=== PATIENT | female | born 1935 | race Caucasian/White ===

== ENCOUNTER → 2016-08-30 | Outpatient (CLI) | payer MEDICARE, MEDICAID ==
[2016-08-30 15:42] LABS: MEAN CORPUSCULAR HEMOGLOBIN 27.8 pg (27.0-33.4); MEAN CORPUSCULAR HGB CONC 33.2 g/dL (32.0-36.0); MEAN CORPUSCULAR VOLUME 84 fl (80-97); RED BLOOD COUNT 3.94 10^6/uL (3.72-5.28); RED CELL DISTRIBUTION WIDTH 13.4 % (11.5-14.0); WHITE BLOOD COUNT 10.3 10^3/uL (4.0-10.5)
[2016-08-30 15:49] LABS: APPEARANCE,URINE SLIGHTLY-CLOUDY; BILIRUBIN,URINE NEGATIVE (NEGATIVE); GLUCOSE, URINE 150 mg/dL (NEGATIVE); KETONES,URINE NEGATIVE (NEGATIVE); LEUKOCYTE ESTERASE,URINE NEGATIVE (NEGATIVE); NITRITE,URINE NEGATIVE (NEGATIVE); PROTEIN,URINE 100 mg/dL (NEGATIVE); URINE SPECIFIC GRAVITY 1.021; UROBILINOGEN,URINE NEGATIVE mg/dL (<2.0)
[2016-08-30 16:05] LABS: ANION GAP 18 (5-19); BLOOD UREA NITROGEN 17 mg/dL (7-20); CALCIUM 10.3 mg/dL (8.4-10.2); CARBON DIOXIDE 23 mmol/L (22-30); CHLORIDE 101 mmol/L (98-107); CREATININE RESULT 0.93 mg/dL (0.52-1.25); GLUCOSE 231 mg/dL (75-110); MAGNESIUM 1.3 mg/dL (1.6-2.3); POTASSIUM 5.3 mmol/L (3.6-5.0); SODIUM 141.7 mmol/L (137-145)
== END ==
LOC: OD 14:27
PROVIDERS: ATTEND Internal Medicine Nephrology
DX: E11.22 Type 2 diabetes mellitus with diabetic chronic kidney disease (principal); N18.3 Chronic kidney disease, stage 3 (moderate); E87.5 Hyperkalemia; R80.9 Proteinuria, unspecified
CPT/HCPCS: 36415; 80048; 81001; 82570; 83735; 84156; 85027

== ENCOUNTER → 2016-11-25 | Outpatient (CLI) | payer MEDICARE, MEDICAID ==
[2016-11-25 14:39] LABS: HEMATOCRIT 34.6 % (36.0-47.0); HEMOGLOBIN 10.8 g/dL (12.0-15.5); HGB HCT DIFFERENCE -2.2; MEAN CORPUSCULAR HEMOGLOBIN 24.8 pg (27.0-33.4); MEAN CORPUSCULAR HGB CONC 31.3 g/dL (32.0-36.0); MEAN CORPUSCULAR VOLUME 79 fl (80-97); RED BLOOD COUNT 4.37 10^6/uL (3.72-5.28); RED CELL DISTRIBUTION WIDTH 20.8 % (11.5-14.0)
[2016-11-25 14:45] LABS: APPEARANCE,URINE SLIGHTLY-CLOUDY; BILIRUBIN,URINE NEGATIVE (NEGATIVE); GLUCOSE, URINE NEGATIVE (NEGATIVE); KETONES,URINE NEGATIVE (NEGATIVE); LEUKOCYTE ESTERASE,URINE TRACE (NEGATIVE); NITRITE,URINE NEGATIVE (NEGATIVE); PROTEIN,URINE 100 mg/dL (NEGATIVE); URINE SPECIFIC GRAVITY 1.029; UROBILINOGEN,URINE NEGATIVE mg/dL (<2.0)
[2016-11-25 15:09] LABS: ANION GAP 15 (5-19); BLOOD UREA NITROGEN 20 mg/dL (7-20); CALCIUM 9.5 mg/dL (8.4-10.2); CARBON DIOXIDE 25 mmol/L (22-30); CHLORIDE 101 mmol/L (98-107); CREATININE RESULT 1.08 mg/dL (0.52-1.25); GLUCOSE 216 mg/dL (75-110); MAGNESIUM 1.5 mg/dL (1.6-2.3); POTASSIUM 5.2 mmol/L (3.6-5.0); SODIUM 141.4 mmol/L (137-145)
[2016-11-25 15:25] LABS: URINE CREATININE 133.5 mg/dL (15-278); URINE PROTEIN 51.4 mg/dL (<12)
== END ==
LOC: OD 13:43
PROVIDERS: ATTEND Internal Medicine Nephrology
DX: E87.5 Hyperkalemia (principal); N18.3 Chronic kidney disease, stage 3 (moderate); E11.9 Type 2 diabetes mellitus without complications; R80.9 Proteinuria, unspecified
CPT/HCPCS: 36415; 80048; 81001; 82570; 83735; 84156; 85027

== ENCOUNTER → 2017-03-21 | Outpatient (CLI) | payer MEDICARE, MEDICAID ==
--- NOTE | 2017-03-21 13:15 | RADIOLOGY REPORT (SQ) ---
EXAM DESCRIPTION: KNEE LEFT 4 VIEWS COMPLETED DATE/TIME: 03/21/2017 12:41 pm REASON FOR STUDY: PAIN IN LEFT KNEE M25.562 PAIN IN LEFT KNEE COMPARISON: None. NUMBER OF VIEWS: Four views. TECHNIQUE: AP, lateral, and both oblique radiographic images acquired of the left knee. LIMITATIONS: None. FINDINGS: MINERALIZATION: Normal. BONES: No acute fracture dislocation. 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 JOINT: There is a small joint effusion. There is mild narrowing of the medial joint compartment. SOFT TISSUES: There are faint meniscal calcifications. OTHER: No other significant finding. IMPRESSION: Mild degenerative joint changes. TECHNICAL DOCUMENTATION: JOB ID: [id number] [employer]- All Rights Reserved
== END ==
LOC: OD 11:59
PROVIDERS: ATTEND Physician Assistant
DX: M25.562 Pain in left knee (principal)

== ENCOUNTER → 2017-08-29 | Outpatient (CLI) | payer MEDICARE, MEDICAID ==
[2017-08-29 10:49] LABS: HEMATOCRIT 37.7 % (36.0-47.0); MEAN CORPUSCULAR HEMOGLOBIN 30.4 pg (27.0-33.4); MEAN CORPUSCULAR HGB CONC 34.4 g/dL (32.0-36.0); MEAN CORPUSCULAR VOLUME 88 fl (80-97); PLATELET COUNT 307 10^3/uL (150-450); RED BLOOD COUNT 4.27 10^6/uL (3.72-5.28); RED CELL DISTRIBUTION WIDTH 13.9 % (11.5-14.0); WHITE BLOOD COUNT 8.8 10^3/uL (4.0-10.5)
[2017-08-29 11:07] LABS: ANION GAP 12 (5-19); BLOOD UREA NITROGEN 24 mg/dL (7-20); CALCIUM 10.2 mg/dL (8.4-10.2); CARBON DIOXIDE 27 mmol/L (22-30); CHLORIDE 103 mmol/L (98-107); GLUCOSE 153 mg/dL (75-110); POTASSIUM 5.4 mmol/L (3.6-5.0); SODIUM 142.1 mmol/L (137-145)
[2017-08-29 12:48] LABS: APPEARANCE,URINE SLIGHTLY-CLOUDY; BILIRUBIN,URINE NEGATIVE (NEGATIVE); COLOR,URINE YELLOW; GLUCOSE, URINE NEGATIVE (NEGATIVE); KETONES,URINE NEGATIVE (NEGATIVE); LEUKOCYTE ESTERASE,URINE MODERATE (NEGATIVE); NITRITE,URINE NEGATIVE (NEGATIVE); PROTEIN,URINE 100 mg/dL (NEGATIVE); URINE SPECIFIC GRAVITY 1.023; UROBILINOGEN,URINE NEGATIVE mg/dL (<2.0)
[2017-08-29 13:03] LABS: UR PRO/CREAT RATIO RESULT 0.6 mg/mg (0.0-0.2); URINE PROTEIN 72.8 mg/dL (<12)
== END ==
LOC: OD 09:53
PROVIDERS: ATTEND Internal Medicine Nephrology
DX: E11.22 Type 2 diabetes mellitus with diabetic chronic kidney disease (principal); N18.3 Chronic kidney disease, stage 3 (moderate); D64.9 Anemia, unspecified; E87.5 Hyperkalemia
CPT/HCPCS: 36415; 80048; 81001; 82570; 83735; 84156; 85027

== ENCOUNTER 2017-09-25 15:10 | Inpatient (IN) | payer MEDICARE, MEDICAID ==
[2017-09-25] MEDS ORDERED: ASPIRIN 81 MG TABLET, CHEWABLE PO ONE (15:59)
[2017-09-25 16:10] LABS: ABSOLUTE EOSINOPHILS # (AUTO) 0.4 10^3/uL (0.0-0.6); ABSOLUTE LYMPHOCYTES (AUTO) 1.6 10^3/uL (0.5-4.7); ABSOLUTE MONOCYTES (AUTO) 0.6 10^3/uL (0.1-1.4); ABSOLUTE NEUT (AUTO) 7.6 10^3/uL (1.7-8.2); BASOPHILS % (AUTO) 0.4 % (0-2); EOSINOPHILS % (AUTO) 3.5 % (0-6); HEMATOCRIT 38.2 % (36.0-47.0); LYMPHOCYTES % (AUTO) 15.3 % (13-45); MEAN CORPUSCULAR HEMOGLOBIN 30.3 pg (27.0-33.4); MEAN CORPUSCULAR HGB CONC 34.1 g/dL (32.0-36.0); MEAN CORPUSCULAR VOLUME 89 fl (80-97); MONOCYTES % (AUTO) 6.4 % (3-13); PLATELET COUNT 321 10^3/uL (150-450); RED BLOOD COUNT 4.29 10^6/uL (3.72-5.28); RED CELL DISTRIBUTION WIDTH 13.8 % (11.5-14.0); SEGMENTED NEUTROPHILS % (AUTO) 74.4 % (42-78); TOTAL CELLS COUNTED % (AUTO) 100 %; WHITE BLOOD COUNT 10.2 10^3/uL (4.0-10.5)
--- NOTE | 2017-09-25 16:19 | RADIOLOGY REPORT (SQ) ---
EXAM DESCRIPTION: CHEST SINGLE VIEW COMPLETED DATE/TIME: 09/25/2017 4:09 pm REASON FOR STUDY: chest pain COMPARISON: April 2014 EXAM PARAMETERS: NUMBER OF VIEWS: One view. TECHNIQUE: Single frontal radiographic view of the chest acquired. RADIATION DOSE: NA LIMITATIONS: None. FINDINGS: LUNGS AND PLEURA: No opacities, masses or pneumothorax. No pleural effusion. MEDIASTINUM AND HILAR STRUCTURES: No masses. Contour normal. HEART AND VASCULAR STRUCTURES: Heart normal in size. Normal vasculature. BONES: No acute findings. HARDWARE: None in the chest. OTHER: No other significant finding. IMPRESSION: NO ACUTE RADIOGRAPHIC FINDING IN THE CHEST. TECHNICAL DOCUMENTATION: JOB ID: [id number] [employer]- All Rights Reserved Reading location - IP/workstation name: [email or web address]
[2017-09-25 16:31] LABS: ALANINE AMINOTRANSFERASE 23 U/L (9-52); ALBUMIN 4.5 g/dL (3.5-5.0); ALKALINE PHOSPHATASE 73 U/L (38-126); ANION GAP 17 (5-19); ASPARTATE AMINO TRANSFERASE 35 U/L (14-36); BILIRUBIN,DIRECT 0.4 mg/dL (0.0-0.4); BILIRUBIN,TOTAL 0.4 mg/dL (0.2-1.3); BLOOD UREA NITROGEN 18 mg/dL (7-20); CARBON DIOXIDE 24 mmol/L (22-30); CHLORIDE 102 mmol/L (98-107); CREATINE KINASE 34 U/L (30-135); GLUCOSE 229 mg/dL (75-110); POTASSIUM 5.1 mmol/L (3.6-5.0); SODIUM 143.3 mmol/L (137-145); TOTAL PROTEIN 7.2 g/dL (6.3-8.2)
--- NOTE | 2017-09-25 16:32 | ER Document Report ---
ED Cardiac - General Chief Complaint: Chest Pain Stated Complaint: POSSIBLE HEART ATTACK Time Seen by Provider: 09/25/17 16:26 Notes: Patient experienced pains in her jaw and throat and across the upper chest starting Friday afternoon and lasted through the night until Friday morning. She says it felt as if knives were sticking into her jaw and throat and chest. It went away Friday and only returned with some jaw pain when she walked some distance 2 days ago. At this time, she is no longer experiencing any pains, just feeling very tired and sleepy. Patient has not had any shortness of breath. She went and saw her primary care provider got Dr. Houston, local staff physical therapy assistant involved, and her EKG shows some subtle ST changes which could be chronic. However, the patient had blood work done around noon today showing an elevated troponin of 0.9. Patient was advised to come to the emergency department for further evaluation. Patient has a history of congestive heart failure many years ago. She has undergone 4 cardiac catheterizations in her lifetime, none of them recent. Also has a history of high cholesterol, hypertension, NIDDM. TRAVEL OUTSIDE OF THE [place] IN LAST 30 DAYS: No - Related Data Allergies/Adverse Reactions: acetaminophen [From Percocet] Allergy (Severe, Verified 08/17/13 14:48) Hallucinations iodine [Iodine] Allergy (Severe, Verified 08/17/13 14:48) Difficulty breathing morphine [Morphine] Allergy (Severe, Verified 08/17/13 14:48) Generalized Itching oxycodone HCl [From Percocet] Allergy (Severe, Verified 08/17/13 14:48) Hallucinations prednisone [Prednisone] Allergy (Severe, Verified 08/17/13 14:48) Hallucinations Sulfa (Sulfonamide Antibiotics) Allergy (Severe, Verified 08/17/13 14:48) itch/hives codeine [Codeine] Allergy (Unknown, Verified 08/17/13 14:48) ? reaction seafood Allergy (Severe, Uncoded 08/17/13 14:48) Difficulty breathing Past Medical History - Social History Smoking Status: Former Smoker - Stopped 22 years ago. Family History: Reviewed & Not Pertinent - Past Medical History Cardiac Medical History: Reports: Hx Coronary Artery Disease - minor vessels closed, Hx Hypercholesterolemia, Hx Hypertension - meds x yrs Pulmonary Medical History: Reports: Hx Bronchitis, Hx COPD, Hx Pneumonia - as child/cellulitis from pneumonia vaccine Neurological Medical History: Reports: Hx Seizures, Other - Multiple TIAs Endocrine Medical History: Reports: Hx Diabetes Mellitus Type 2 Musculoskeltal Medical History: Reports Hx Arthritis Past Surgical History: Reports: Hx Cholecystectomy, Hx Hysterectomy - Immunizations Hx Diphtheria, Pertussis, Tetanus Vaccination: Yes Hx Pneumococcal Vaccination: 06/09/09 Review of Systems - Review of Systems Notes: REVIEW OF SYSTEMS: CONSTITUTIONAL : Denies fever. Feeling tired. EENT: Denies eye, ear, nose or mouth or throat pain or other symptoms. CARDIOVASCULAR: See HPI. RESPIRATORY: Denies cough, chest congestion, or shortness of breath. GASTROINTESTINAL: Denies abdominal pain or nausea, vomiting, or diarrhea. GENITOURINARY: Denies difficulty or painful urinating, urinary frequency, blood in urine. MUSCULOSKELETAL: Denies back or neck pain. Denies joint pain or swelling. No leg swelling. SKIN: Denies rash or skin lesions. NEUROLOGICAL: Denies LOC or altered mental status. Denies headache. Denies sensory loss or motor deficits. ALL OTHER SYSTEMS REVIEWED AND NEGATIVE. Physical Exam - Vital signs Vitals: Temp Pulse BP Pulse Ox 98.4 F 81 139/55 H 95 09/25/17 15:34 09/25/17 15:34 09/25/17 15:34 09/25/17 15:34 Interpretation: Normal - Notes Notes: PHYSICAL EXAMINATION: GENERAL: Well-appearing, in no acute distress. Vital signs are all essentially normal. HEAD: Atraumatic, normocephalic. EYES: Pupils equal round and reactive to light, extraocular movements intact. ENT: oropharynx clear without exudates. Moist mucous membranes. NECK: Normal range of motion, supple. LUNGS: Breath sounds clear and equal bilaterally. HEART: Regular rate and rhythm without murmurs. ABDOMEN: Soft, nontender. No guarding or rebound. No masses. BACK: No tenderness throughout entire back. EXTREMITIES: Normal range of motion without pain. NEUROLOGICAL: Normal speech. Normal sensory, motor, and reflex exams. Awake, alert, and oriented x3. PSYCH: Normal mood, normal affect. SKIN: Warm, dry, no rashes. Course - Re-evaluation Re-evalutation: 09/25/17 17:44 This patient's case has been discussed with the primary care provider, Dr. Shen , as well as his substitute, Dr. O, who is on-call for the weekend, and Dr. Houston, staff physical therapy assistant business economist. As the patient's symptoms have resolved and she is not having any symptoms at all today, and since her troponin level here in this emergency department this afternoon is 0.77, no increase over the previous value earlier today, it is felt the patient could be observed here and make sure she is stable and not have to be transferred out for further evaluation. Alternatively, if the patient does seem to have worsening symptoms or vital signs, her disposition will have to be reconsidered. Patient and daughter are aware of this plan and agreeable with it. - Vital Signs Vital signs: Temp Pulse Resp BP Pulse Ox 98.4 F 81 22 H 167/68 H 93 09/25/17 15:34 09/25/17 15:34 09/25/17 17:00 09/25/17 15:48 09/25/17 17:00 - Laboratory Result Diagrams: 09/25/17 15:55 09/25/17 15:55 Laboratory results interpreted by me: 09/25/17 15:55 Potassium 5.1 H Est GFR ( Amer) 58 L Est GFR (Non-Af Amer) 48 L Glucose 229 H - Diagnostic Test Radiology results interpreted by me: 09/25/17 17:46 Chest x-ray is unremarkable. Normal. - EKG Interpretation by Me EKG shows normal: Sinus rhythm Rate: Normal [place]/QRS: LAHB/LAFB Voltage: Consistant with LVH Heart block present: 1st Degree Critical Care Note - Critical Care Note Total time excluding time spent on procedures (mins): 40 Discharge - Discharge Clinical Impression: Jaw pain, Chest pain, Positive troponin Condition: Stable Disposition: ADMITTED OBSERVATION Admitting Provider: [facility] Admitted: [facility] Referrals: VIC SHEN MD [Primary Care Provider] - Follow up as needed
[2017-09-25 16:42] LABS: CREATINE KINASE MB 1.17 ng/mL (<4.55)
[2017-09-25 16:46] LABS: TROPONIN I 0.77 ng/mL
[2017-09-25] MEDS ORDERED: IPRATROPIUM/ALBUTEROL 0.5-2.5 MG/3 ML AMPUL NEB PRN (17:29)
[2017-09-25] MEDS ORDERED: GLUCAGON,HUMAN RECOMB 1 MG INJ IM PRN (17:34)
[2017-09-25] MEDS ORDERED: DEXTROSE 50%-WATER 25 GM/50 ML DISP.SYRIN IV PRN ×2 (17:34)
[2017-09-25] MEDS ORDERED: DEXTROSE 40% GEL 15 GM TUBE PO PRN ×2 (17:34)
[2017-09-25] MEDS: DOCUSATE SODIUM 100 MG CAPSULE PO SCH (18:52)
[2017-09-25 19:12] LABS: CREATINE KINASE MB 1.29 ng/mL (<4.55); TROPONIN I 0.916 ng/mL
[2017-09-25] MEDS ORDERED: ENOXAPARIN SODIUM INJ 40 MG/0.4 ML DISP.SYRIN SUBCUT ONE (21:00)
[2017-09-25] MEDS: TRAMADOL HCL 50 MG TABLET PO SCH (21:38)
[2017-09-25] MEDS: HYDRALAZINE HCL 50 MG TABLET PO SCH (21:38)
[2017-09-25] MEDS: METOPROLOL TARTRATE 50 MG TABLET PO SCH (21:39)
[2017-09-25] MEDS: GABAPENTIN 100 MG CAPSULE PO SCH (21:39)
[2017-09-25] MEDS: FAMOTIDINE 20 MG TABLET PO SCH (21:40)
[2017-09-25] MEDS: ACETAMINOPHEN 325 MG TABLET PO PRN (21:40)
[2017-09-25] MEDS: RANOLAZINE 500 MG TAB.SR.12H PO SCH (21:41)
[2017-09-25] MEDS: ATORVASTATIN CALCIUM 40 MG TABLET PO SCH (21:43)
[2017-09-25] MEDS ORDERED: ALPRAZOLAM 0.25 MG TABLET PO SCH (22:00)
[2017-09-25] MEDS ORDERED: (PENDING PHARMACY ID) (Hydralazine Hcl [Hydralazine Hcl] 100 MG) PO SCH (22:00)
--- NOTE | 2017-09-25 23:11 | EKG REPORT ---
SEVERITY:- ABNORMAL ECG - SINUS RHYTHM FIRST DEGREE AV BLOCK LEFT ANTERIOR FASCICULAR BLOCK LVH WITH SECONDARY REPOLARIZATION ABNORMALITY : Confirmed by: Geri Houston 25-Sep-2017 23:10:45
[2017-09-25] MEDS: INSULIN LISPRO 100 UNIT/ML 3 ML VIAL SUBCUT PRN (23:44)
[2017-09-25] MEDS ORDERED: MAG HYDROX/AL HYDROX/SIMETH SUSP 30 ML UDCUP ONE (23:57)
[2017-09-26 00:17] LABS: CREATINE KINASE MB 1.05 ng/mL (<4.55)
[2017-09-26 00:22] LABS: TROPONIN I 0.827 ng/mL
[2017-09-26] MEDS: LEVOTHYROXINE SODIUM 0.1 MG TABLET PO SCH (05:32)
[2017-09-26] MEDS: HYDRALAZINE HCL 50 MG TABLET PO SCH ×3 (05:32→21:50)
[2017-09-26] MEDS: LEVOTHYROXINE SODIUM 0.025 MG TABLET PO SCH (05:32)
[2017-09-26 05:55] LABS: HEMATOCRIT 36.1 % (36.0-47.0); HEMOGLOBIN 12.5 g/dL (12.0-15.5); MEAN CORPUSCULAR HEMOGLOBIN 30.3 pg (27.0-33.4); MEAN CORPUSCULAR HGB CONC 34.6 g/dL (32.0-36.0); MEAN CORPUSCULAR VOLUME 88 fl (80-97); PLATELET COUNT 276 10^3/uL (150-450); RED BLOOD COUNT 4.12 10^6/uL (3.72-5.28); RED CELL DISTRIBUTION WIDTH 13.4 % (11.5-14.0); WHITE BLOOD COUNT 7.3 10^3/uL (4.0-10.5)
[2017-09-26 06:15] LABS: ANION GAP 14 (5-19); BLOOD UREA NITROGEN 17 mg/dL (7-20); CALCIUM 9.5 mg/dL (8.4-10.2); CARBON DIOXIDE 26 mmol/L (22-30); CHLORIDE 102 mmol/L (98-107); CREATINE KINASE 37 U/L (30-135); GLUCOSE 191 mg/dL (75-110); POTASSIUM 4.3 mmol/L (3.6-5.0); SODIUM 142.2 mmol/L (137-145)
[2017-09-26 06:23] LABS: CREATINE KINASE MB 1.24 ng/mL (<4.55); TROPONIN I 1.05 ng/mL
[2017-09-26] MEDS: MAG HYDROX/AL HYDROX/SIMETH SUSP 30 ML UDCUP PO PRN (07:33)
[2017-09-26] MEDS: METFORMIN HCL 500 MG TABLET PO SCH ×2 (07:38→16:48)
--- NOTE | 2017-09-26 09:00 | PDOC H&P ---
History of Present Illness Admission Date/PCP: VIC SHEN MD Patient complains of: chest pain History of Present Illness: RAISTEO SIDDIQUI is a 82 year old female This is a 82-year-old female with the history of the type 2 diabetes mellitus history of the hypertension's hyperlipidemia havoc several cardiac cath in the past came to my office today with a complaining of chest pain in the joint pains started on the last Friday and getting better and a EKG was done in the office with so some EKG changes with T-wave inversion in anterolateral lead and some left bundle branch block that was new from the last EKG and a stat cardiac enzyme was orderedNeck cardiology was consult was ordered and the patient cardiac enzyme was elevated in the acute OH range and a cardiology send the patient's to the ER with patients pretty much denied any complaint and according to the ER physician patients do not want to go for tertiary center at this point for any cardiac cath in the as per discussed with the cardiology agreed to put the patient in the hospital Patient's recall memory was last cardiac cath was done in a week but hospital Patient is currently denied any chest pain denied any shortness of the breath with complaining some indigestions and some back problem Past Medical History Cardiac Medical History: Reports: Coronary Artery Disease - minor vessels closed , Hyperlipidema, Hypertension - meds x yrs Pulmonary Medical History: Reports: Bronchitis, Chronic Obstructive Pulmonary Disease (COPD), Pneumonia - as child/cellulitis from pneumonia vaccine Neurological Medical History: Reports: Seizures, Other - Multiple TIAs Endocrine Medical History: Reports: Diabetes Mellitus Type 2 Musculoskeltal Medical History: Reports: Arthritis Hematology: Reports: Anemia Past Surgical History Past Surgical History: Reports: Cholecystectomy, Hysterectomy Social History Smoking Status: Former Smoker - Stopped 22 years ago. Family History Family History: Reviewed & Not Pertinent Parental Family History Reviewed: Yes Children Family History Reviewed: Yes Sibling(s) Family History Reviewed.: Yes Medication/Allergy Home Medications: Alprazolam [Xanax 0.25 mg Tablet] 0.25 mg PO QHS 09/25/17 Clopidogrel Bisulfate [Plavix 75 mg Tablet] 75 mg PO DAILY 09/25/17 Ferrous Sulfate [Feosol 325 mg Tablet] 325 mg PO DAILY 09/25/17 Gabapentin [Neurontin 100 mg Capsule] 100 mg PO Q12 09/25/17 Glimepiride [Amaryl 1 mg Tablet] 1 mg PO BID 09/25/17 Hydralazine HCl 100 mg PO Q8 09/25/17 Levothyroxine Sodium [Synthroid] 125 mcg PO DAILY 09/25/17 Metformin HCl [Glucophage] 1,000 mg PO BIDACBS 09/25/17 Metoprolol Tartrate [Lopressor 50 mg Tablet] 50 mg PO Q12 09/25/17 Ranitidine HCl [Zantac 150 mg Tablet] 150 mg PO BID 09/25/17 Sitagliptin Phosphate [Januvia 50 mg Tablet] 100 mg PO DAILY 09/25/17 Tramadol HCl [Ultram 50 mg Tablet] 50 mg PO Q12 09/25/17 Allergies/Adverse Reactions: iodine [Iodine] Allergy (Severe, Verified 09/25/17 20:46) Difficulty breathing morphine [Morphine] Allergy (Severe, Verified 09/25/17 20:46) Generalized Itching oxycodone HCl [From Percocet] Allergy (Severe, Verified 09/25/17 20:46) Hallucinations prednisone [Prednisone] Allergy (Severe, Verified 09/25/17 20:46) Hallucinations Sulfa (Sulfonamide Antibiotics) Allergy (Severe, Verified 09/25/17 20:46) itch/hives codeine [Codeine] Allergy (Unknown, Verified 09/25/17 20:46) ? reaction Qiavsus-Dwy-Ogg Reductase Inhibitor Adverse Reaction (Verified 09/26/17 04:43) seafood Allergy (Severe, Uncoded 09/25/17 20:46) Difficulty breathing Review of Systems Constitutional: ABSENT: chills, fever(s), headache(s), weight gain, weight loss Eyes: ABSENT: visual disturbances Ears: ABSENT: hearing changes Cardiovascular: PRESENT: chest pain. ABSENT: dyspnea on exertion, edema, orthropnea, palpitations Respiratory: ABSENT: cough, hemoptysis Gastrointestinal: ABSENT: abdominal pain, constipation, diarrhea, hematemesis, hematochezia, nausea, vomiting Genitourinary: ABSENT: dysuria, hematuria Musculoskeletal: ABSENT: joint swelling Integumentary: ABSENT: rash, wounds Neurological: ABSENT: abnormal gait, abnormal speech, confusion, dizziness, focal weakness, syncope Psychiatric: ABSENT: anxiety, depression, homidical ideation, suicidal ideation Endocrine: ABSENT: cold intolerance, heat intolerance, menstrual abnormalities, polydipsia, polyuria Hematologic/Lymphatic: ABSENT: easy bleeding, easy bruising, lymphadenopathy Physical Exam Vital Signs: Temp Pulse Resp BP Pulse Ox 98.4 F 81 22 H 167/68 H 93 09/25/17 15:34 09/25/17 15:34 09/25/17 17:00 09/25/17 15:48 09/25/17 17:00 Intake & Output 09/24/17 09/25/17 09/26/17 06:59 06:59 06:59 Weight 95.254 kg General appearance: PRESENT: no acute distress, well-developed, well-nourished Head exam: PRESENT: atraumatic, normocephalic Eye exam: PRESENT: conjunctiva pink, EOMI, PERRLA. ABSENT: scleral icterus Ear exam: PRESENT: normal external ear exam Mouth exam: PRESENT: moist, tongue midline Neck exam: PRESENT: full ROM. ABSENT: carotid bruit, JVD, lymphadenopathy, thyromegaly Respiratory exam: PRESENT: clear to auscultation elena Cardiovascular exam: PRESENT: RRR. ABSENT: diastolic murmur, rubs, systolic murmur Pulses: PRESENT: normal dorsalis pedis pul, +2 pedal pulses bilateral Vascular exam: PRESENT: normal capillary refill GI/Abdominal exam: PRESENT: normal bowel sounds, soft. ABSENT: distended, guarding, mass, organolmegaly, rebound, tenderness Rectal exam: PRESENT: deferred Musculoskeletal exam: PRESENT: ambulatory Neurological exam: PRESENT: alert, awake, oriented to person, oriented to place , oriented to time, oriented to situation, CN II-XII grossly intact. ABSENT: motor sensory deficit Psychiatric exam: PRESENT: appropriate affect, normal mood. ABSENT: homicidal ideation, suicidal ideation Skin exam: PRESENT: dry, intact, warm. ABSENT: cyanosis, rash Results Laboratory Results: 09/25/17 15:55 09/25/17 15:55 09/25/17 09/25/17 15:55 15:55 WBC 10.2 RBC 4.29 Hgb 13.0 Hct 38.2 MCV 89 MCH 30.3 MCHC 34.1 RDW 13.8 Plt Count 321 Seg Neutrophils % 74.4 Lymphocytes % 15.3 Monocytes % 6.4 Eosinophils % 3.5 Basophils % 0.4 Absolute Neutrophils 7.6 Absolute Lymphocytes 1.6 Absolute Monocytes 0.6 Absolute Eosinophils 0.4 Absolute Basophils 0.0 Sodium 143.3 Potassium 5.1 H Chloride 102 Carbon Dioxide 24 Anion Gap 17 BUN 18 Creatinine 1.09 Est GFR ( Amer) 58 L Est GFR (Non-Af Amer) 48 L Glucose 229 H Calcium 10.0 Total Bilirubin 0.4 AST 35 ALT 23 Alkaline Phosphatase 73 Total Protein 7.2 Albumin 4.5 09/25/17 09/25/17 15:55 15:55 Creatine Kinase 34 CK-MB (CK-2) 1.17 Troponin I 0.770 Impressions: Chest X-Ray 09/25/17 15:59 IMPRESSION: NO ACUTE RADIOGRAPHIC FINDING IN THE CHEST. Assessment & Plan - Diagnosis (1) Chest pain Qualifiers: Chest pain type: unspecified Qualified Code(s): R07.9 - Chest pain, unspecified Is this a current diagnosis for this admission?: Yes Plan: Most likely a non-ST OH as per discussed with the patient and the daughter do not want to go for the cardiac cath at this point will admit the patient and as per discussed with the cardiology maximize the treatment and reevaluate (2) Non-ST elevated myocardial infarction Is this a current diagnosis for this admission?: Yes Plan: Admit the patient imcu Discussed with the patient and daughterAnd patients do not want to go for any cardiaccath and follow medical mx (3) CAD (coronary artery disease) Qualifiers: Coronary Disease-Associated Artery/Lesion type: unspecified vessel or lesion type Is this a current diagnosis for this admission?: Yes Plan: Continues follow with the cardiology (4) Type 2 diabetes mellitus Qualifiers: Diabetes mellitus skilled nursing insulin use: unspecified skilled nursing insulin use status Is this a current diagnosis for this admission?: Yes Plan: Continues a sliding scale and current medication (5) Hypertension Qualifiers: Hypertension type: essential hypertension Qualified Code(s): I10 - Essential (primary) hypertension Is this a current diagnosis for this admission?: Yes Plan: Continues to restart on the p.o. medications (6) Hyperlipemia Qualifiers: Hyperlipidemia type: other hyperlipidemia Qualified Code(s): E78.4 - Other hyperlipidemia Is this a current diagnosis for this admission?: Yes Plan: Continues to statin (7) Depression Qualifiers: Depression Type: major depressive disorder Is this a current diagnosis for this admission?: Yes - Time Time Spent: 30 to 50 Minutes Medications reviewed and adjusted accordingly: Yes Anticipated discharge: Home Within: Other - Inpatient Certification Medical Necessity: Need Close Monitoring Due to Risk of Patient Decompensation Post Hospital Care: D/C Painter And Decorator Documentation - Plan Summary Plan Summary: Continues to maximum treatment while patient do not want to go for the cardiac cath follow with the cardiology and continues to monitor the patient discussed with the patient and daughter about the patient's current conditions
--- NOTE | 2017-09-26 09:02 | PDOC PROGRESS REPORT ---
Subjective Progress Note for:: 09/26/17 Subjective:: Patient is currently apparently doing fair denied any chest pain overnight but still complaining some indigestions Denied any shortness of the breath Since cardiac enzyme is still elevated Reason For Visit: NON ST LA Physical Exam Vital Signs: Temp Pulse Resp BP Pulse Ox 97.9 F 72 18 148/60 H 97 09/26/17 07:21 09/26/17 08:00 09/26/17 08:00 09/26/17 07:21 09/26/17 08:00 Intake & Output 09/25/17 09/26/17 09/27/17 06:59 06:59 06:59 Intake Total 200 Output Total 800 Balance -600 Weight 95.3 kg General appearance: PRESENT: no acute distress, well-developed, well-nourished Head exam: PRESENT: atraumatic, normocephalic Eye exam: PRESENT: conjunctiva pink, EOMI, PERRLA. ABSENT: scleral icterus Ear exam: PRESENT: normal external ear exam Mouth exam: PRESENT: moist, tongue midline Neck exam: PRESENT: full ROM. ABSENT: carotid bruit, JVD, lymphadenopathy, thyromegaly Respiratory exam: PRESENT: clear to auscultation elena Cardiovascular exam: PRESENT: RRR. ABSENT: diastolic murmur, rubs, systolic murmur Pulses: PRESENT: normal dorsalis pedis pul, +2 pedal pulses bilateral Vascular exam: PRESENT: normal capillary refill GI/Abdominal exam: PRESENT: normal bowel sounds, soft. ABSENT: distended, guarding, mass, organolmegaly, rebound, tenderness Rectal exam: PRESENT: deferred Extremities exam: ABSENT: full ROM, left AKA, right AKA, left BKA, right BKA, calf tenderness, joint swelling, pedal edema, tenderness, other Musculoskeletal exam: PRESENT: ambulatory Neurological exam: PRESENT: alert, awake, oriented to person, oriented to place , oriented to time, oriented to situation, CN II-XII grossly intact. ABSENT: motor sensory deficit Psychiatric exam: PRESENT: appropriate affect, normal mood. ABSENT: homicidal ideation, suicidal ideation Skin exam: PRESENT: dry, intact, warm. ABSENT: cyanosis, rash Results Laboratory Results: 09/26/17 05:44 09/26/17 05:44 09/26/17 09/26/17 05:44 05:44 WBC 7.3 RBC 4.12 Hgb 12.5 Hct 36.1 MCV 88 MCH 30.3 MCHC 34.6 RDW 13.4 Plt Count 276 Sodium 142.2 Potassium 4.3 Chloride 102 Carbon Dioxide 26 Anion Gap 14 BUN 17 Creatinine 0.99 Est GFR ( Amer) > 60 Est GFR (Non-Af Amer) 54 L Glucose 191 H Calcium 9.5 Magnesium 1.5 L 09/25/17 09/25/17 09/25/17 18:26 23:49 23:49 Creatine Kinase 36 CK-MB (CK-2) 1.29 1.05 Troponin I 0.916 0.827 NT-Pro-B Natriuret Pep 09/26/17 09/26/17 05:44 05:44 Creatine Kinase 37 CK-MB (CK-2) 1.24 Troponin I 1.050 NT-Pro-B Natriuret Pep 6300 H Impressions: Chest X-Ray 09/25/17 15:59 IMPRESSION: NO ACUTE RADIOGRAPHIC FINDING IN THE CHEST. Assessment & Plan - Diagnosis (1) Chest pain Qualifiers: Chest pain type: unspecified Qualified Code(s): R07.9 - Chest pain, unspecified Is this a current diagnosis for this admission?: Yes Plan: Most likely a non-ST LA as per discussed with the patient and the daughter do not want to go for the cardiac cath at this point will admit the patient and as per discussed with the cardiology maximize the treatment and reevaluate (2) Non-ST elevated myocardial infarction Is this a current diagnosis for this admission?: Yes Plan: Discussed with the patient again about the possible cardiac interventions and the patient's will talk to the learning coordinator Dr. Houston today discussed with Dr. Houston ordered a stat echo (3) CAD (coronary artery disease) Qualifiers: Coronary Disease-Associated Artery/Lesion type: unspecified vessel or lesion type Is this a current diagnosis for this admission?: Yes Plan: Continues follow with the cardiology (4) Type 2 diabetes mellitus Qualifiers: Diabetes mellitus care home insulin use: unspecified computer terminal operator insulin use status Is this a current diagnosis for this admission?: Yes Plan: Continues a sliding scale and current medication (5) Hypertension Qualifiers: Hypertension type: essential hypertension Qualified Code(s): I10 - Essential (primary) hypertension Is this a current diagnosis for this admission?: Yes Plan: Continues to restart on the p.o. medications (6) Hyperlipemia Qualifiers: Hyperlipidemia type: other hyperlipidemia Qualified Code(s): E78.4 - Other hyperlipidemia Is this a current diagnosis for this admission?: Yes Plan: Continues to statin (7) Depression Qualifiers: Depression Type: major depressive disorder Is this a current diagnosis for this admission?: Yes - Time Time Spent with patient: 15-24 minutes Medications reviewed and adjusted accordingly: Yes Anticipated discharge: Home Within: Other - Inpatient Certification Medical Necessity: Need Close Monitoring Due to Risk of Patient Decompensation Post Hospital Care: D/C Corporate Development Associate Documentation - Plan Summary Plan Summary: Patient is already on aspirin Plavix and beta-zulma discussed with the Dr. Houston about the Lovenox therapy and he does not think patients need at this point will wait for the echo report
[2017-09-26] MEDS: RANOLAZINE 500 MG TAB.SR.12H PO SCH ×3 (09:17→21:53)
[2017-09-26] MEDS: GABAPENTIN 100 MG CAPSULE PO SCH ×2 (09:17→21:51)
[2017-09-26] MEDS: METOPROLOL TARTRATE 50 MG TABLET PO SCH (09:17)
[2017-09-26] MEDS: FERROUS SULFATE 325 MG TABLET PO SCH (09:17)
[2017-09-26] MEDS: CLOPIDOGREL BISULFATE 75 MG TABLET PO SCH (09:18)
[2017-09-26] MEDS: TRAMADOL HCL 50 MG TABLET PO SCH ×2 (09:18→21:51)
[2017-09-26] MEDS: SITAGLIPTIN PHOSPHATE 50 MG TABLET PO SCH (09:19)
[2017-09-26] MEDS: GLIMEPIRIDE 1 MG TABLET PO SCH ×2 (09:19→17:15)
[2017-09-26] MEDS: FAMOTIDINE 20 MG TABLET PO SCH ×2 (09:19→21:52)
[2017-09-26] MEDS: DOCUSATE SODIUM 100 MG CAPSULE PO SCH ×2 (09:20→17:15)
[2017-09-26] MEDS: ENOXAPARIN SODIUM INJ 40 MG/0.4 ML DISP.SYRIN SUBCUT SCH (09:20)
[2017-09-26] MEDS ORDERED: (PENDING PHARMACY ID) (Ranitidine Hcl [Zantac 150 Mg Tablet] 150 MG) PO SCH (10:00)
[2017-09-26] MEDS ORDERED: (PENDING PHARMACY ID) (Levothyroxine Sodium [Synthroid] 125 MCG) PO SCH (10:00)
--- NOTE | 2017-09-26 10:25 | EKG REPORT ---
SEVERITY:- ABNORMAL ECG - SINUS RHYTHM FIRST DEGREE AV BLOCK LEFT ANTERIOR FASCICULAR BLOCK ABNORMAL T, CONSIDER ISCHEMIA, LATERAL LEADS : Confirmed by: Geri Houston 26-Sep-2017 10:24:42
[2017-09-26] MEDS: METOPROLOL SUCCINATE 50 MG TAB.SR.24H PO SCH ×2 (10:40→21:51)
[2017-09-26] MEDS ORDERED: PANTOPRAZOLE SODIUM 40 MG VIAL IV ONE (11:57)
[2017-09-26 12:50] LABS: CREATINE KINASE MB 0.96 ng/mL (<4.55); TROPONIN I 0.622 ng/mL
[2017-09-26] MEDS: INSULIN LISPRO 100 UNIT/ML 3 ML VIAL SUBCUT PRN (12:56)
[2017-09-26] MEDS: ALPRAZOLAM 0.25 MG TABLET PO PRN ×2 (14:47→23:56)
[2017-09-26 18:27] LABS: CREATINE KINASE MB 1.04 ng/mL (<4.55)
[2017-09-26 18:31] LABS: TROPONIN I 0.863 ng/mL
--- NOTE | 2017-09-26 18:57 | XCELERA REPORT ---
[address] [address] Transthoracic Echocardiogram Report Name: ARISTEO SIDDIQUI Age: 82 yrs Gender: Female : 1935 Patient Status: Inpatient Patient Location: [address] [place] [address] Study Date: 09/26/2017 01:29 PM Height: 64 in Weight: 210 lb BSA: 2.0 m2 Procedure: A complete two-dimensional transthoracic echocardiogram was performed (2D, M-mode, spectral and color flow Doppler). The study was technically difficult with many images being suboptimal in quality. Reason For Study: EVAL LVEF, NSTEMI Ordering Physician: GERI JOHNSON Performed By: Evelin Richard Interpretation Summary LV EF is 50% Left ventricular systolic function is borderline reduced. There is mild to moderate concentric left ventricular hypertrophy. The left ventricle is grossly normal size. Doppler measurements suggest pseudonormalized left ventricular relaxation, which is associated with grade II/IV or mild to moderate diastolic dysfunction There is anteroseptal wall hypokinesis The right ventricular systolic function is normal. The left atrial size is normal. The right atrium is normal. There is a trace to mild amount of mitral regurgitation There is no mitral valve stenosis. No aortic regurgitation is present. There is no aortic valve stenosis There is a mild amount of tricuspid regurgitation There is mild to moderate pulmonary hypertension by echo Right ventricular systolic pressure is estimated to be elevated at 40- 50mmHg. The aortic root is not well visualized but is probably normal size. The inferior vena cava was not well visualized There is no pericardial effusion. MMode/2D Measurements & Calculations RVDd: 2.7 cm LVIDd: 5.2 cm FS: 28.1 % Ao root diam: IVSd: 1.3 cm LVIDs: 3.8 cm EDV(Teich): 2.7 cm LVPWd: 1.3 cm 132.1 ml Ao root area: ESV(Teich): 60.8 ml 5.7 cm2 EF(Teich): 54.0 % LA dimension: 3.3 cm LVLd ap4: 8.1 cm SV(MOD-sp4): EDV(MOD-sp4): 26.0 ml 96.0 ml LVLs ap4: 6.9 cm ESV(MOD-sp4): 70.0 ml EF(MOD-sp4): 27.1 % Doppler Measurements & Calculations MV E max sveta: MV P1/2t max sveta: Ao V2 max: LV V1 max P.6 cm/sec 71.6 cm/sec 155.9 cm/sec 7.7 mmHg MV A max sveta: MV P1/2t: 41.8 msec Ao max PG: LV V1 max: 108.6 cm/sec MVA(P1/2t): 5.3 cm2 9.7 mmHg 138.5 cm/sec MV E/A: 0.67 MV dec slope: 501.2 cm/sec2 MV dec time: 0.15 sec PA V2 max: TR max sveta: 117.0 cm/sec 309.5 cm/sec PA max P.5 mmHgTR max P.3 mmHg Left Ventricle The left ventricle is grossly normal size. There is mild to moderate concentric left ventricular hypertrophy. Left ventricular systolic function is borderline reduced. LV EF is 50%. Doppler measurements suggest pseudonormalized left ventricular relaxation, which is associated with grade II/IV or mild to moderate diastolic dysfunction. There is anteroseptal wall hypokinesis. Right Ventricle The right ventricle is grossly normal size. The right ventricular systolic function is normal. Atria The right atrium is normal. The left atrial size is normal. Interarterial septum not well visualized and not well dopplered. Cannot comment on ASD/PFO presence. Mitral Valve The mitral valve is grossly normal. There is no mitral valve stenosis. There is a trace to mild amount of mitral regurgitation. Aortic Valve The aortic valve is moderately calcified. There is no aortic valve stenosis. No aortic regurgitation is present. Tricuspid Valve The tricuspid valve is not well visualized, but is grossly normal. There is no tricuspid stenosis. There is a mild amount of tricuspid regurgitation. There is mild to moderate pulmonary hypertension by echo. Right ventricular systolic pressure is estimated to be elevated at 40-50mmHg. Pulmonic Valve The pulmonic valve is not well visualized. Great Vessels The aortic root is not well visualized but is probably normal size. The inferior vena cava was not well visualized. Effusions There is no pericardial effusion. : GERI JOHNSON > Geri Johnson
--- NOTE | 2017-09-26 19:49 | PDOC PROGRESS REPORT ---
Subjective Progress Note for:: 09/26/17 Subjective:: Patient was admitted through the emergency room after being sent there from my office. Patient was seen there in cardiology consultation for severe jaw pain and neck pain on Friday and Friday for lasting for several hours each time. Patient was seen earlier today by Dr. Ocampo in his office. EKG shows no changes suggesting left bundle branch block pattern. Few hours later patient came to my office when EKG showed left bundle branch block pattern without any changes being noted from EKG performed at Dr. Ocampo's office. However by this time patient's troponin I came back suggestive and patient was sent to the ER for admission and further management. Patient was offered transfer to tertiary care for heart catheterization but she prefers to stay here with medical management. Patient was actually chest pain-free and quite comfortable and was able to walk short distances without any chest pain.. Patient complained of some back pain and right shoulder discomfort pain. This she claims is related to gas and was subsequently relieved by Maalox intake. Patient's troponin I however came back suggestive and slightly above her initial admission troponin I. Reason For Visit: NON ST IA Physical Exam Vital Signs: Temp Pulse Resp BP Pulse Ox 98.8 F 81 18 97/70 L 95 09/26/17 15:47 09/26/17 15:47 09/26/17 15:47 09/26/17 15:47 09/26/17 15:47 Intake & Output 09/25/17 09/26/17 09/27/17 06:59 06:59 06:59 Intake Total 200 720 Output Total 800 900 Balance -600 -180 Weight 95.3 kg Exam: GENERAL: well-nourished and in no acute distress. Alert and oriented x3 HEAD: Atraumatic, normocephalic. EYES: Pupils equal round and reactive to light, extraocular movements intact, sclera anicteric, conjunctiva are normal. ENT: TMs normal, nares patent, oropharynx clear without exudates. Moist mucous membranes. No oral ulcerations or bleeding gums noted NECK: supple without lymphadenopathy. Trachea is central. No cervical or axillary lymphadenopathy noted. Carotids are 2+, JVD WNL LUNGS: Respiration seems nonlabored, no significant accessory muscle action noted. Breath sounds clear to auscultation bilaterally and equal noted. No wheezes rales or rhonchi noted. No significant dullness noted on percussion. CHEST: Palpation of the chest wall shows no significant chest wall tenderness. 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 ABDOMEN: Soft, no significant tenderness appreciated, normoactive bowel sounds. No guarding, no rebound. No rigidity noted . No masses appreciated. EXTREMITIES: Pedal pulses are 1-2+, no calf tenderness noted. No clubbing or cyanosis. Trace pedal edema noted NEUROLOGICAL: Focused neurological exam showed no significant neurologic deficit. Normal speech, no focal weakness appreciated. PSYCH: Normal mood, normal affect. Judgment and insight within normal limits. SKIN: No significant ecchymosis, skin is noted to be warm. MUSCULOSKELETAL EXAM: No significant acute joint swelling noted. Results Laboratory Results: 09/26/17 05:44 09/26/17 05:44 09/26/17 09/26/17 05:44 05:44 WBC 7.3 RBC 4.12 Hgb 12.5 Hct 36.1 MCV 88 MCH 30.3 MCHC 34.6 RDW 13.4 Plt Count 276 Sodium 142.2 Potassium 4.3 Chloride 102 Carbon Dioxide 26 Anion Gap 14 BUN 17 Creatinine 0.99 Est GFR ( Amer) > 60 Est GFR (Non-Af Amer) 54 L Glucose 191 H Calcium 9.5 Magnesium 1.5 L 09/25/17 09/25/17 09/25/17 18:26 23:49 23:49 Creatine Kinase 36 CK-MB (CK-2) 1.29 1.05 Troponin I 0.916 0.827 NT-Pro-B Natriuret Pep 09/26/17 09/26/17 09/26/17 05:44 05:44 12:03 Creatine Kinase 37 35 CK-MB (CK-2) 1.24 Troponin I 1.050 NT-Pro-B Natriuret Pep 6300 H 09/26/17 09/26/17 09/26/17 12:03 17:45 17:45 Creatine Kinase 41 CK-MB (CK-2) 0.96 1.04 Troponin I 0.622 0.863 NT-Pro-B Natriuret Pep EKG Comments: EKG shows sinus rhythm with left bundle branch block pattern and secondary ST-T wave changes. Impressions: Chest X-Ray 09/25/17 15:59 IMPRESSION: NO ACUTE RADIOGRAPHIC FINDING IN THE CHEST. Assessment & Plan - Diagnosis (1) Non-ST elevated myocardial infarction Is this a current diagnosis for this admission?: Yes (2) CAD (coronary artery disease) Qualifiers: Coronary Disease-Associated Artery/Lesion type: [place] artery [place] vs. transplanted heart: [place] heart Associated angina: angina presence unspecified Qualified Code(s): I25.10 - Atherosclerotic heart disease of [place] coronary artery without angina pectoris Is this a current diagnosis for this admission?: Yes (3) Hyperlipemia Qualifiers: Hyperlipidemia type: other hyperlipidemia Qualified Code(s): E78.4 - Other hyperlipidemia Is this a current diagnosis for this admission?: Yes (4) Hypertension Qualifiers: Hypertension type: essential hypertension Qualified Code(s): I10 - Essential (primary) hypertension Is this a current diagnosis for this admission?: Yes (5) Type 2 diabetes mellitus Qualifiers: Diabetes mellitus chcf insulin use: unspecified chcf insulin use status Diabetes mellitus complication status: with unspecified complications Qualified Code(s): E11.8 - Type 2 diabetes mellitus with unspecified complications Is this a current diagnosis for this admission?: Yes (6) Depression Qualifiers: Depression Type: unspecified Qualified Code(s): F32.9 - Major depressive disorder, single episode, unspecified Is this a current diagnosis for this admission?: Yes - Notes Notes: Non-ST segment elevation myocardial infarction: Patient ruled in by this by virtue of EKG changes and also positive enzyme. Patient to be treated with Lovenox aspirin, Plavix, statins, Ranexa, beta blockers, MICHAEL inhibitor/ARB. For further risk stratification a 2D echocardiogram will be obtained. Patient to report any recurrence of chest pain. Once patient stabilized, will consider a stress testing. However if patient has recurrent chest pain or if troponin I keeps on rising then will send patient to tertiary care for heart catheterization. Right now patient prefers medical management. Coronary artery disease: Please see management above. Patient does describe history of cardiac catheterization several years ago at [facility] during which she was noted to have some blockages not needing stents. Hyperlipidemia: Currently stable. Have placed patient on Lipitor 40 mg p.o. nightly. Hypertension: Blood pressure goal is 140/90 or less. Avoid any hypotension or severe hypertension. Diabetes: Recommend good control of blood sugar. However should avoid any hypoglycemia and hyperglycemia. Patient being expertly managed by primary care M.D/hospitalist Dysthymia: Patient has history of anxiety depression. Recommend anxiolytics. - Time Time with patient: Greater than 35 minutes - CODE STATUS was discussed, patient remains full code. Surrogate decision-maker patient's daughter. Multiple medical problems were addressed. More than 50% of the time spent coordinating care, discussing management plans with involved caregivers. Management plans discussed with involved personnels. Medical decision making was of moderate to high complexity, patient's has multiple comorbidities. Medications reviewed and adjusted accordingly: Yes
[2017-09-26] MEDS: ATORVASTATIN CALCIUM 40 MG TABLET PO SCH (21:56)
[2017-09-27 00:33] LABS: TROPONIN I 0.907 ng/mL
[2017-09-27 05:36] LABS: ABSOLUTE EOSINOPHILS # (AUTO) 0.3 10^3/uL (0.0-0.6); ABSOLUTE LYMPHOCYTES (AUTO) 1.5 10^3/uL (0.5-4.7); ABSOLUTE MONOCYTES (AUTO) 0.8 10^3/uL (0.1-1.4); BASOPHILS % (AUTO) 0.4 % (0-2); HEMATOCRIT 34.5 % (36.0-47.0); HEMOGLOBIN 11.9 g/dL (12.0-15.5); LYMPHOCYTES % (AUTO) 17.4 % (13-45); MEAN CORPUSCULAR HEMOGLOBIN 30.2 pg (27.0-33.4); MEAN CORPUSCULAR HGB CONC 34.3 g/dL (32.0-36.0); MEAN CORPUSCULAR VOLUME 88 fl (80-97); PLATELET COUNT 243 10^3/uL (150-450); RED BLOOD COUNT 3.92 10^6/uL (3.72-5.28); RED CELL DISTRIBUTION WIDTH 13.7 % (11.5-14.0); SEGMENTED NEUTROPHILS % (AUTO) 70.2 % (42-78); TOTAL CELLS COUNTED % (AUTO) 100 %; WHITE BLOOD COUNT 8.6 10^3/uL (4.0-10.5)
[2017-09-27 06:04] LABS: ANION GAP 15 (5-19); BLOOD UREA NITROGEN 18 mg/dL (7-20); CALCIUM 9.9 mg/dL (8.4-10.2); CARBON DIOXIDE 25 mmol/L (22-30); CHLORIDE 100 mmol/L (98-107); GLUCOSE 170 mg/dL (75-110); POTASSIUM 4.9 mmol/L (3.6-5.0); SODIUM 140.4 mmol/L (137-145)
[2017-09-27] MEDS: HYDRALAZINE HCL 50 MG TABLET PO SCH ×3 (06:36→22:33)
[2017-09-27] MEDS: LEVOTHYROXINE SODIUM 0.025 MG TABLET PO SCH (06:36)
[2017-09-27] MEDS: LEVOTHYROXINE SODIUM 0.1 MG TABLET PO SCH (06:36)
--- NOTE | 2017-09-27 09:21 | EKG REPORT ---
SEVERITY:- ABNORMAL ECG - ATRIAL FIBRILLATION LEFT ANTERIOR FASCICULAR BLOCK : Confirmed by: Geri Houston 27-Sep-2017 09:20:27
--- NOTE | 2017-09-27 09:23 | EKG REPORT ---
SEVERITY:- ABNORMAL ECG - SINUS RHYTHM LEFT ANTERIOR FASCICULAR BLOCK REPOL ABNRM SUGGESTS ISCHEMIA, LATERAL LEADS : Confirmed by: Geri Houston 27-Sep-2017 09:22:25
[2017-09-27] MEDS: GABAPENTIN 100 MG CAPSULE PO SCH ×2 (09:33→22:31)
[2017-09-27] MEDS: SITAGLIPTIN PHOSPHATE 50 MG TABLET PO SCH (09:33)
[2017-09-27] MEDS: FERROUS SULFATE 325 MG TABLET PO SCH (09:33)
[2017-09-27] MEDS: FAMOTIDINE 20 MG TABLET PO SCH ×2 (09:34→22:33)
[2017-09-27] MEDS: TRAMADOL HCL 50 MG TABLET PO SCH ×2 (09:34→22:32)
[2017-09-27] MEDS: DOCUSATE SODIUM 100 MG CAPSULE PO SCH ×2 (09:34→17:07)
[2017-09-27] MEDS: CLOPIDOGREL BISULFATE 75 MG TABLET PO SCH (09:34)
[2017-09-27] MEDS: METFORMIN HCL 500 MG TABLET PO SCH ×2 (09:35→15:28)
[2017-09-27] MEDS: METOPROLOL SUCCINATE 50 MG TAB.SR.24H PO SCH ×2 (09:35→22:31)
[2017-09-27] MEDS: GLIMEPIRIDE 1 MG TABLET PO SCH ×2 (09:35→17:08)
[2017-09-27] MEDS: ENOXAPARIN SODIUM INJ 40 MG/0.4 ML DISP.SYRIN SUBCUT SCH (09:36)
[2017-09-27] MEDS: RANOLAZINE 500 MG TAB.SR.12H PO SCH ×2 (09:37→22:31)
[2017-09-27] MEDS: INSULIN LISPRO 100 UNIT/ML 3 ML VIAL SUBCUT PRN (09:40)
[2017-09-27] MEDS: ACETAMINOPHEN 325 MG TABLET PO PRN ×2 (09:44→22:32)
--- NOTE | 2017-09-27 10:59 | PDOC PROGRESS REPORT ---
Subjective Progress Note for:: 09/27/17 Subjective:: Patient is currently doing much better Since denied any chest pain denied any abdominal pain Patient's denied any short of breath Reason For Visit: NON ST NC Physical Exam Vital Signs: Temp Pulse Resp BP Pulse Ox 98.5 F 84 16 118/51 L 94 09/27/17 07:58 09/27/17 07:58 09/27/17 07:58 09/27/17 07:58 09/27/17 07:58 Intake & Output 09/26/17 09/27/17 09/28/17 06:59 06:59 06:59 Intake Total 200 920 Output Total 800 1650 Balance -600 -730 Weight 95.3 kg 96.1 kg General appearance: PRESENT: no acute distress, well-developed, well-nourished Head exam: PRESENT: atraumatic, normocephalic Eye exam: PRESENT: conjunctiva pink, EOMI, PERRLA. ABSENT: scleral icterus Ear exam: PRESENT: normal external ear exam Mouth exam: PRESENT: moist, tongue midline Neck exam: PRESENT: full ROM. ABSENT: carotid bruit, JVD, lymphadenopathy, thyromegaly Respiratory exam: PRESENT: clear to auscultation elena Cardiovascular exam: PRESENT: RRR. ABSENT: diastolic murmur, rubs, systolic murmur Pulses: PRESENT: normal dorsalis pedis pul, +2 pedal pulses bilateral Vascular exam: PRESENT: normal capillary refill GI/Abdominal exam: PRESENT: normal bowel sounds, soft. ABSENT: distended, guarding, mass, organolmegaly, rebound, tenderness Rectal exam: PRESENT: deferred Extremities exam: ABSENT: pedal edema Musculoskeletal exam: PRESENT: ambulatory Neurological exam: PRESENT: alert, awake, oriented to person, oriented to place , oriented to time, oriented to situation, CN II-XII grossly intact. ABSENT: motor sensory deficit Psychiatric exam: PRESENT: appropriate affect, normal mood. ABSENT: homicidal ideation, suicidal ideation Skin exam: PRESENT: dry, intact, warm. ABSENT: cyanosis, rash Results Laboratory Results: 09/27/17 04:39 09/27/17 04:39 09/27/17 09/27/17 04:39 04:39 WBC 8.6 RBC 3.92 Hgb 11.9 L Hct 34.5 L MCV 88 MCH 30.2 MCHC 34.3 RDW 13.7 Plt Count 243 Seg Neutrophils % 70.2 Lymphocytes % 17.4 Monocytes % 9.0 Eosinophils % 3.0 Basophils % 0.4 Absolute Neutrophils 6.0 Absolute Lymphocytes 1.5 Absolute Monocytes 0.8 Absolute Eosinophils 0.3 Absolute Basophils 0.0 Sodium 140.4 Potassium 4.9 Chloride 100 Carbon Dioxide 25 Anion Gap 15 BUN 18 Creatinine 1.24 Est GFR ( Amer) 50 L Est GFR (Non-Af Amer) 42 L Glucose 170 H Calcium 9.9 Magnesium 1.5 L 09/25/17 09/25/17 09/25/17 18:26 23:49 23:49 Creatine Kinase 36 CK-MB (CK-2) 1.29 1.05 Troponin I 0.916 0.827 NT-Pro-B Natriuret Pep 09/26/17 09/26/17 09/26/17 05:44 05:44 12:03 Creatine Kinase 37 35 CK-MB (CK-2) 1.24 Troponin I 1.050 NT-Pro-B Natriuret Pep 6300 H 09/26/17 09/26/17 09/26/17 12:03 17:45 17:45 Creatine Kinase 41 CK-MB (CK-2) 0.96 1.04 Troponin I 0.622 0.863 NT-Pro-B Natriuret Pep 09/26/17 09/26/17 09/27/17 23:50 23:50 04:39 Creatine Kinase 44 CK-MB (CK-2) 1.00 Troponin I 0.907 NT-Pro-B Natriuret Pep 4930 H Impressions: Chest X-Ray 09/25/17 15:59 IMPRESSION: NO ACUTE RADIOGRAPHIC FINDING IN THE CHEST. Assessment & Plan - Diagnosis (1) Chest pain Qualifiers: Chest pain type: unspecified Qualified Code(s): R07.9 - Chest pain, unspecified Is this a current diagnosis for this admission?: Yes Plan: Most likely a non-ST NC as per discussed with the patient and the daughter do not want to go for the cardiac cath at this point will admit the patient and as per discussed with the cardiology maximize the treatment and reevaluate (2) Non-ST elevated myocardial infarction Is this a current diagnosis for this admission?: Yes Plan: Discussed with the patient again about the possible cardiac interventions and the patient's will talk to the camera prototyping engineer Dr. Houston today discussed with Dr. Houston ordered a stat echo (3) CAD (coronary artery disease) Qualifiers: Coronary Disease-Associated Artery/Lesion type: [place] artery [place] vs. 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 medications (6) Hyperlipemia Qualifiers: Hyperlipidemia type: other hyperlipidemia Qualified Code(s): E78.4 - Other hyperlipidemia Is this a current diagnosis for this admission?: Yes Plan: Continues to statin (7) Depression Qualifiers: Depression Type: unspecified Qualified Code(s): F32.9 - Major depressive disorder, single episode, unspecified Is this a current diagnosis for this admission?: Yes - Time Time Spent with patient: 15-24 minutes Medications reviewed and adjusted accordingly: Yes Anticipated discharge: Other Within: Other - Inpatient Certification Medical Necessity: Need Close Monitoring Due to Risk of Patient Decompensation 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
[2017-09-27 11:32] LABS: CREATINE KINASE MB 0.97 ng/mL (<4.55)
[2017-09-27 11:43] LABS: TROPONIN I 0.535 ng/mL
--- NOTE | 2017-09-27 12:46 | RADIOLOGY REPORT (SQ) ---
EXAM DESCRIPTION: CT CHEST WITHOUT; CT ABD/PELVIS NO ORAL OR IV COMPLETED DATE/TIME: 09/27/2017 12:14 pm REASON FOR STUDY: chest pain/abd pain COMPARISON: None. TECHNIQUE: CT scan of the chest performed without intravenous contrast using helical scanning techni que. Images reviewed with lung, soft tissue and bone windows. Reconstructed coronal and sagittal MPR images reviewed. All images stored on PACS. CT scan of the abdomen and pelvis performed without intravenous contrast and withoutoral contrast usi ng helical scanning technique with dynamic intravenous contrast injection. Images reviewed with lung , soft tissue and bone windows. Reconstructed coronal and sagittal MPR images reviewed. All images stored on PACS. All CT scanners at this facility use dose modulation, iterative reconstruction, and/or weight based d osing when appropriate to reduce radiation dose to as low as reasonably achievable (ALARA). [facility]: Dose Right [facility]: CareDose [facility]: Dose Right [facility]: Teradose 4D [facility]: GillBus RADIATION DOSE: CT Rad equipment meets quality standard of care and radiation dose reduction techniq ues were employed. CTDIvol: 17.4 mGy. DLP: 1244 mGy-cm. mGy. LIMITATIONS: No technical limitations. FINDINGS: CHEST: AXILLAE: No adenopathy. CHEST WALL: No masses. No subcutaneous air. LUNGS: No nodules or masses. No pneumothorax. No infiltrates. PLEURA: No effusions. No calcifications. THYROID: No masses or significant asymmetry. HILAR AND MEDIASTINAL STRUCTURES: No identified masses or abnormal nodes. AORTA AND GREAT VESSELS: Atherosclerotic calcifications including coronary artery calcifications. No aneurysm. Enlarged pulmonary artery trunk measuring 3.6 cm. HEART: No pericardial effusion. HARDWARE AND LIFELINES: None. BONES: No significant finding. OTHER: No other significant finding. ABDOMEN AND PELVIS: LIVER: Mild diffuse hepatic steatosis. No masses. No dilated ducts. SPLEEN: Normal size. No focal lesions. PANCREAS: No masses. No significant calcifications. No adjacent inflammation or peripancreatic flui d collections. Pancreatic duct not dilated. GALLBLADDER: No identified stones by CT criteria. No inflammatory changes to suggest cholecystitis. ADRENAL GLANDS: Bilateral adrenal adenomas with the right measuring 2 cm in the left measuring 1.5 cm RIGHT KIDNEY AND URETER: No solid masses. Assessment limited by lack of IV contrast. No significant c alcification. No hydronephrosis or hydroureter. LEFT KIDNEY AND URETER: No solid masses. Assessment limited by lack of IV contrast. No significant ca lcification. No hydronephrosis or hydroureter. AORTA AND VESSELS: No aneurysm. RETROPERITONEUM: No retroperitoneal adenopathy, hemorrhage or masses. APPENDIX: Not visualized. LARGE AND SMALL BOWEL: No dilatation. No masses. No wall thickening. ABDOMINAL WALL: No hernia or masses. PERITONEAL CAVITY: No free air. No free fluid. No peritoneal implants or masses. PELVIS: No mass or free fluid. Normal bladder. BONES: Degenerative change without fracture or suspicious osseous lesion. OTHER: No other significant finding. IMPRESSION: NO ACUTE FINDINGS WITHIN THE CHEST, ABDOMEN, OR PELVIS. CORONARY ARTERY DISEASE. ENLARGED PULMONARY ARTERY TRUNK SUGGESTIVE OF PULMONARY ARTERY HYPERTENSION. CORRELATE WITH ECHOCARD IOGRAM. BILATERAL ADRENAL ADENOMAS. CORRELATE WITH BIOCHEMICAL MARKERS. ADDITIONAL CHRONIC CHANGES ABOVE. TECHNICAL DOCUMENTATION: JOB ID: [id number] Quality ID # [id number]: Final reports with documentation of one or more dose reduction techniques (e.g., Au tomated exposure control, adjustment of the mA and/or kV according to patient size, use of iterative reconstruction technique) 2010 [employer]- All Rights Reserved Reading location - IP/workstation name: [email or web address]
--- NOTE | 2017-09-27 13:14 | PDOC PROGRESS REPORT ---
Subjective Progress Note for:: 09/27/17 Subjective:: Patient was admitted through the emergency room after being sent there from my office. Patient denies any recurrent jaw pain but now has intermittent back pain, in between shoulder plate discomfort and also abdominal pain. Patient's troponin I has been persistently elevated but total CKs are WNL. EKG is not showing any significant ST-T wave changes. Exact reason for troponin I elevation is not clear. Patient also describes frequent gas and anxiety symptoms. Reason For Visit: NON ST CT Physical Exam Vital Signs: Temp Pulse Resp BP Pulse Ox 97.6 F 76 16 128/58 H 94 09/27/17 10:45 09/27/17 12:36 09/27/17 12:36 09/27/17 10:45 09/27/17 10:45 Intake & Output 09/26/17 09/27/17 09/28/17 06:59 06:59 06:59 Intake Total 200 920 150 Output Total 800 1650 300 Balance -600 -730 -150 Weight 95.3 kg 96.1 kg Exam: GENERAL: well-nourished and in no acute distress. Alert and oriented x3 HEAD: Atraumatic, normocephalic. EYES: Pupils equal round and reactive to light, extraocular movements intact, sclera anicteric, conjunctiva are normal. ENT: TMs normal, nares patent, oropharynx clear without exudates. Moist mucous membranes. No oral ulcerations or bleeding gums noted NECK: supple without lymphadenopathy. Trachea is central. No cervical or axillary lymphadenopathy noted. Carotids are 2+, JVD WNL LUNGS: Respiration seems nonlabored, no significant accessory muscle action noted. Breath sounds clear to auscultation bilaterally and equal noted. No wheezes rales or rhonchi noted. No significant dullness noted on percussion. CHEST: Palpation of the chest wall shows no significant chest wall tenderness. 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 ABDOMEN: Soft, no significant tenderness appreciated, normoactive bowel sounds. No guarding, no rebound. No rigidity noted . No masses appreciated. EXTREMITIES: Pedal pulses are 1-2+, no calf tenderness noted. No clubbing or cyanosis. negative pedal edema noted NEUROLOGICAL: Focused neurological exam showed no significant neurologic deficit. Normal speech, no focal weakness appreciated. PSYCH: Normal mood, normal affect. Judgment and insight within normal limits. SKIN: No significant ecchymosis, skin is noted to be warm. MUSCULOSKELETAL EXAM: No significant acute joint swelling noted. Results Laboratory Results: 09/27/17 04:39 09/27/17 04:39 09/27/17 09/27/17 04:39 04:39 WBC 8.6 RBC 3.92 Hgb 11.9 L Hct 34.5 L MCV 88 MCH 30.2 MCHC 34.3 RDW 13.7 Plt Count 243 Seg Neutrophils % 70.2 Lymphocytes % 17.4 Monocytes % 9.0 Eosinophils % 3.0 Basophils % 0.4 Absolute Neutrophils 6.0 Absolute Lymphocytes 1.5 Absolute Monocytes 0.8 Absolute Eosinophils 0.3 Absolute Basophils 0.0 Sodium 140.4 Potassium 4.9 Chloride 100 Carbon Dioxide 25 Anion Gap 15 BUN 18 Creatinine 1.24 Est GFR ( Amer) 50 L Est GFR (Non-Af Amer) 42 L Glucose 170 H Calcium 9.9 Magnesium 1.5 L 09/25/17 09/25/17 09/25/17 18:26 23:49 23:49 Creatine Kinase 36 CK-MB (CK-2) 1.29 1.05 Troponin I 0.916 0.827 NT-Pro-B Natriuret Pep 09/26/17 09/26/17 09/26/17 05:44 05:44 12:03 Creatine Kinase 37 35 CK-MB (CK-2) 1.24 Troponin I 1.050 NT-Pro-B Natriuret Pep 6300 H 09/26/17 09/26/17 09/26/17 12:03 17:45 17:45 Creatine Kinase 41 CK-MB (CK-2) 0.96 1.04 Troponin I 0.622 0.863 NT-Pro-B Natriuret Pep 09/26/17 09/26/17 09/27/17 23:50 23:50 04:39 Creatine Kinase 44 CK-MB (CK-2) 1.00 Troponin I 0.907 NT-Pro-B Natriuret Pep 4930 H 09/27/17 09/27/17 10:29 10:29 Creatine Kinase 36 CK-MB (CK-2) 0.97 Troponin I 0.535 NT-Pro-B Natriuret Pep EKG Comments: Shows sinus rhythm, without any sustained tachycardia or bradycardia. Impressions: Chest X-Ray 09/25/17 15:59 IMPRESSION: NO ACUTE RADIOGRAPHIC FINDING IN THE CHEST. Abdomen/Pelvis CT 09/27/17 00:00 IMPRESSION: NO ACUTE FINDINGS WITHIN THE CHEST, ABDOMEN, OR PELVIS. CORONARY ARTERY DISEASE. ENLARGED PULMONARY ARTERY TRUNK SUGGESTIVE OF PULMONARY ARTERY HYPERTENSION. CORRELATE WITH ECHOCARDIOGRAM. BILATERAL ADRENAL ADENOMAS. CORRELATE WITH BIOCHEMICAL MARKERS. ADDITIONAL CHRONIC CHANGES ABOVE. Chest CT 09/27/17 00:00 IMPRESSION: NO ACUTE FINDINGS WITHIN THE CHEST, ABDOMEN, OR PELVIS. CORONARY ARTERY DISEASE. ENLARGED PULMONARY ARTERY TRUNK SUGGESTIVE OF PULMONARY ARTERY HYPERTENSION. CORRELATE WITH ECHOCARDIOGRAM. BILATERAL ADRENAL ADENOMAS. CORRELATE WITH BIOCHEMICAL MARKERS. ADDITIONAL CHRONIC CHANGES ABOVE. Assessment & Plan - Diagnosis (1) Non-ST elevated myocardial infarction Is this a current diagnosis for this admission?: Yes (2) CAD (coronary artery disease) Qualifiers: Coronary Disease-Associated Artery/Lesion type: [place] artery [place] vs. transplanted heart: [place] heart Associated angina: angina presence unspecified Qualified Code(s): I25.10 - Atherosclerotic heart disease of [place] coronary artery without angina pectoris Is this a current diagnosis for this admission?: Yes (3) Hyperlipemia Qualifiers: Hyperlipidemia type: other hyperlipidemia Qualified Code(s): E78.4 - Other hyperlipidemia Is this a current diagnosis for this admission?: Yes (4) Hypertension Qualifiers: Hypertension type: essential hypertension Qualified Code(s): I10 - Essential (primary) hypertension Is this a current diagnosis for this admission?: Yes (5) Type 2 diabetes mellitus Qualifiers: Diabetes mellitus nursing home insulin use: unspecified 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 Patient has numerous other nonspecific complaints. This was discussed with Dr. Ocampo. We are going to order a CT of the chest and abdomen without contrast because of renal dysfunction. Will also follow troponin I and CK-MB to look at the pattern. Repeat EKG. Did optimize medical management to some extent. Have asked Dr. Ocampo to reduce hydralazine and go up on metoprolol succinate. Will do this tomorrow. Non-ST segment elevation myocardial infarction: Patient ruled in by this by virtue of EKG changes and also positive enzyme. Patient to be treated with Lovenox aspirin, Plavix, statins, Ranexa, beta blockers, MICHAEL inhibitor/ARB. For further risk stratification a 2D echocardiogram will be obtained. Patient to report any recurrence of chest pain. Once patient stabilized, will consider a stress testing. However if patient has recurrent chest pain or if troponin I keeps on rising then will send patient to tertiary care for heart catheterization. Right now patient prefers medical management. Coronary artery disease: Please see management above. Patient does describe history of cardiac catheterization several years ago at [facility] - [place], [place] during which she was noted to have some blockages not needing stents. Hyperlipidemia: Currently stable. Have placed patient on Lipitor 40 mg p.o. nightly. Hypertension: Blood pressure goal is 140/90 or less. Avoid any hypotension or severe hypertension. Diabetes: Recommend good control of blood sugar. However should avoid any hypoglycemia and hyperglycemia. Patient being expertly managed by primary care M.D/hospitalist Dysthymia: Patient has history of anxiety depression. Recommend anxiolytics. Currently is started on anxiolytics. - Time Time with patient: Greater than 35 minutes - CODE STATUS was discussed, patient remains full code. Surrogate decision-maker unchanged. Multiple medical problems were addressed. More than 50% of the time spent coordinating care, discussing management plans with involved caregivers. Management plans discussed with involved personnels. Medical decision making was of moderate to high complexity, patient's has multiple comorbidities. Medications reviewed and adjusted accordingly: Yes
[2017-09-27] MEDS: ALPRAZOLAM 0.25 MG TABLET PO PRN ×2 (15:28→22:31)
[2017-09-27 16:27] LABS: CREATINE KINASE MB 0.86 ng/mL (<4.55); TROPONIN I 0.575 ng/mL
[2017-09-27] MEDS: MAG HYDROX/AL HYDROX/SIMETH SUSP 30 ML UDCUP PO PRN (20:18)
[2017-09-27 22:33] LABS: CREATINE KINASE MB 0.96 ng/mL (<4.55)
[2017-09-27] MEDS: ATORVASTATIN CALCIUM 40 MG TABLET PO SCH (22:35)
[2017-09-27 22:49] LABS: TROPONIN I 0.471 ng/mL
[2017-09-28] MEDS: MAG HYDROX/AL HYDROX/SIMETH SUSP 30 ML UDCUP PO PRN ×2 (02:43→20:57)
[2017-09-28 05:52] LABS: HEMATOCRIT 33.7 % (36.0-47.0); HEMOGLOBIN 11.8 g/dL (12.0-15.5); MEAN CORPUSCULAR HEMOGLOBIN 30.7 pg (27.0-33.4); MEAN CORPUSCULAR HGB CONC 34.9 g/dL (32.0-36.0); MEAN CORPUSCULAR VOLUME 88 fl (80-97); PLATELET COUNT 240 10^3/uL (150-450); RED BLOOD COUNT 3.83 10^6/uL (3.72-5.28); RED CELL DISTRIBUTION WIDTH 13.4 % (11.5-14.0); WHITE BLOOD COUNT 8.8 10^3/uL (4.0-10.5)
[2017-09-28] MEDS: LEVOTHYROXINE SODIUM 0.1 MG TABLET PO SCH (06:01)
[2017-09-28] MEDS: LEVOTHYROXINE SODIUM 0.025 MG TABLET PO SCH (06:01)
[2017-09-28] MEDS: HYDRALAZINE HCL 50 MG TABLET PO SCH ×3 (06:01→21:08)
[2017-09-28 06:18] LABS: ANION GAP 16 (5-19); BLOOD UREA NITROGEN 22 mg/dL (7-20); CALCIUM 9.8 mg/dL (8.4-10.2); CARBON DIOXIDE 23 mmol/L (22-30); CHLORIDE 98 mmol/L (98-107); GLUCOSE 176 mg/dL (75-110); POTASSIUM 4.8 mmol/L (3.6-5.0); SODIUM 137.4 mmol/L (137-145)
[2017-09-28] MEDS: INSULIN LISPRO 100 UNIT/ML 3 ML VIAL SUBCUT PRN ×2 (08:17→17:11)
[2017-09-28] MEDS: METFORMIN HCL 500 MG TABLET PO SCH ×2 (08:17→15:22)
--- NOTE | 2017-09-28 10:17 | PDOC PROGRESS REPORT ---
Subjective Progress Note for:: 09/28/17 Subjective:: Patient is currently denied any chest pain Patient to complaining of right-sided abdominal pain No nausea no vomiting CT chest and CT abdomen pelvis without contrast was done yesterday was all stable Patient's last bowel movement was done in Friday Reason For Visit: NON ST [place] Physical Exam Vital Signs: Temp Pulse Resp BP Pulse Ox 98.0 F 76 18 114/47 L 92 09/28/17 07:07 09/28/17 07:07 09/28/17 07:07 09/28/17 07:07 09/28/17 07:07 Intake & Output 09/27/17 09/28/17 09/29/17 06:59 06:59 06:59 Intake Total 920 750 Output Total 1650 1400 Balance -730 -650 Weight 96.1 kg 94.6 kg General appearance: PRESENT: no acute distress, well-developed, well-nourished Head exam: PRESENT: atraumatic, normocephalic Eye exam: PRESENT: conjunctiva pink, EOMI, PERRLA. ABSENT: scleral icterus Ear exam: PRESENT: normal external ear exam Mouth exam: PRESENT: moist, tongue midline Neck exam: PRESENT: full ROM. ABSENT: carotid bruit, JVD, lymphadenopathy, thyromegaly Respiratory exam: PRESENT: clear to auscultation elena Cardiovascular exam: PRESENT: RRR. ABSENT: diastolic murmur, rubs, systolic murmur Pulses: PRESENT: normal dorsalis pedis pul, +2 pedal pulses bilateral Vascular exam: PRESENT: normal capillary refill GI/Abdominal exam: PRESENT: normal bowel sounds, soft. ABSENT: distended, guarding, mass, organolmegaly, rebound, tenderness Rectal exam: PRESENT: deferred Extremities exam: ABSENT: pedal edema Musculoskeletal exam: PRESENT: ambulatory Neurological exam: PRESENT: alert, awake, oriented to person, oriented to place , oriented to time, oriented to situation, CN II-XII grossly intact. ABSENT: motor sensory deficit Psychiatric exam: PRESENT: appropriate affect, normal mood. ABSENT: homicidal ideation, suicidal ideation Skin exam: PRESENT: dry, intact, warm. ABSENT: cyanosis, rash Results Laboratory Results: 09/28/17 04:50 09/28/17 04:50 09/28/17 09/28/17 04:50 04:50 WBC 8.8 RBC 3.83 Hgb 11.8 L Hct 33.7 L MCV 88 MCH 30.7 MCHC 34.9 RDW 13.4 Plt Count 240 Sodium 137.4 Potassium 4.8 Chloride 98 Carbon Dioxide 23 Anion Gap 16 BUN 22 H Creatinine 1.32 H Est GFR ( Amer) 47 L Est GFR (Non-Af Amer) 39 L Glucose 176 H Calcium 9.8 Magnesium 1.5 L 09/25/17 09/25/17 09/25/17 18:26 23:49 23:49 Creatine Kinase 36 CK-MB (CK-2) 1.29 1.05 Troponin I 0.916 0.827 NT-Pro-B Natriuret Pep 09/26/17 09/26/17 09/26/17 05:44 05:44 12:03 Creatine Kinase 37 35 CK-MB (CK-2) 1.24 Troponin I 1.050 NT-Pro-B Natriuret Pep 6300 H 09/26/17 09/26/17 09/26/17 12:03 17:45 17:45 Creatine Kinase 41 CK-MB (CK-2) 0.96 1.04 Troponin I 0.622 0.863 NT-Pro-B Natriuret Pep 09/26/17 09/26/17 09/27/17 23:50 23:50 04:39 Creatine Kinase 44 CK-MB (CK-2) 1.00 Troponin I 0.907 NT-Pro-B Natriuret Pep 4930 H 09/27/17 09/27/17 09/27/17 10:29 10:29 15:30 Creatine Kinase 36 37 CK-MB (CK-2) 0.97 Troponin I 0.535 NT-Pro-B Natriuret Pep 09/27/17 09/27/17 09/27/17 15:30 21:46 21:46 Creatine Kinase 38 CK-MB (CK-2) 0.86 0.96 Troponin I 0.575 0.471 NT-Pro-B Natriuret Pep 09/28/17 04:50 Creatine Kinase CK-MB (CK-2) Troponin I NT-Pro-B Natriuret Pep 4780 H Impressions: Chest X-Ray 09/25/17 15:59 IMPRESSION: NO ACUTE RADIOGRAPHIC FINDING IN THE CHEST. Abdomen/Pelvis CT 09/27/17 00:00 IMPRESSION: NO ACUTE FINDINGS WITHIN THE CHEST, ABDOMEN, OR PELVIS. CORONARY ARTERY DISEASE. ENLARGED PULMONARY ARTERY TRUNK SUGGESTIVE OF PULMONARY ARTERY HYPERTENSION. CORRELATE WITH ECHOCARDIOGRAM. BILATERAL ADRENAL ADENOMAS. CORRELATE WITH BIOCHEMICAL MARKERS. ADDITIONAL CHRONIC CHANGES ABOVE. Chest CT 09/27/17 00:00 IMPRESSION: NO ACUTE FINDINGS WITHIN THE CHEST, ABDOMEN, OR PELVIS. CORONARY ARTERY DISEASE. ENLARGED PULMONARY ARTERY TRUNK SUGGESTIVE OF PULMONARY ARTERY HYPERTENSION. CORRELATE WITH ECHOCARDIOGRAM. BILATERAL ADRENAL ADENOMAS. CORRELATE WITH BIOCHEMICAL MARKERS. ADDITIONAL CHRONIC CHANGES ABOVE. Assessment & Plan - Diagnosis (1) Chest pain Qualifiers: Chest pain type: unspecified Qualified Code(s): R07.9 - Chest pain, unspecified Is this a current diagnosis for this admission?: Yes Plan: Most likely a non-ST WA as per discussed with the patient and the daughter do not want to go for the cardiac cath at this point will admit the patient and as per discussed with the cardiology maximize the treatment and reevaluate (2) Non-ST elevated myocardial infarction Is this a current diagnosis for this admission?: Yes Plan: Discussed with the patient again about the possible cardiac interventions and the patient's will talk to the veneer glue jointer feedback Dr. Houston today discussed with Dr. Houston ordered a stat echo (3) CAD (coronary artery disease) Qualifiers: Coronary Disease-Associated Artery/Lesion type: [place] artery [place] vs. transplanted heart: [place] heart Associated angina: angina presence unspecified Qualified Code(s): I25.10 - Atherosclerotic heart disease of [place] coronary artery without angina pectoris Is this a current diagnosis for this admission?: Yes Plan: Continues follow with the cardiology (4) Type 2 diabetes mellitus Qualifiers: Diabetes mellitus fpc insulin use: unspecified fpc insulin use status Diabetes mellitus complication status: with unspecified complications Qualified Code(s): E11.8 - Type 2 diabetes mellitus with unspecified complications Is this a current diagnosis for this admission?: Yes Plan: Continues a sliding scale and current medication (5) Hypertension Qualifiers: Hypertension type: essential hypertension Qualified Code(s): I10 - Essential (primary) hypertension Is this a current diagnosis for this admission?: Yes Plan: Continues to restart on the p.o. medications (6) Hyperlipemia Qualifiers: Hyperlipidemia type: other hyperlipidemia Qualified Code(s): E78.4 - Other hyperlipidemia Is this a current diagnosis for this admission?: Yes Plan: Continues to statin (7) Depression Qualifiers: Depression Type: unspecified Qualified Code(s): F32.9 - Major depressive disorder, single episode, unspecified Is this a current diagnosis for this admission?: Yes (8) Abdominal pain Qualifiers: Abdominal location: right lower quadrant Qualified Code(s): R10.31 - Right lower quadrant pain Is this a current diagnosis for this admission?: Yes Plan: Possible from constipations well CT abdomen pelvis did not show any acute finding we will try some MiraLAX and Colace - Time Time Spent with patient: 15-24 minutes Medications reviewed and adjusted accordingly: Yes Anticipated discharge: Other Within: Other - Inpatient Certification Medical Necessity: Need Close Monitoring Due to Risk of Patient Decompensation Post Hospital Care: D/C [employer] Documentation - Plan Summary Plan Summary: Continues to current medications follow with the cardiology continues to monitor This with the patient with all the test reports and discussed with the daughter
[2017-09-28] MEDS: ENOXAPARIN SODIUM INJ 40 MG/0.4 ML DISP.SYRIN SUBCUT SCH (10:47)
[2017-09-28] MEDS: SITAGLIPTIN PHOSPHATE 50 MG TABLET PO SCH (10:47)
[2017-09-28] MEDS: RANOLAZINE 500 MG TAB.SR.12H PO SCH ×2 (10:48→21:07)
[2017-09-28] MEDS: METOPROLOL SUCCINATE 50 MG TAB.SR.24H PO SCH ×2 (10:49→21:07)
[2017-09-28] MEDS: CLOPIDOGREL BISULFATE 75 MG TABLET PO SCH (10:49)
[2017-09-28] MEDS: GABAPENTIN 100 MG CAPSULE PO SCH ×2 (10:49→21:08)
[2017-09-28] MEDS: FAMOTIDINE 20 MG TABLET PO SCH (10:49)
[2017-09-28] MEDS: DOCUSATE SODIUM 100 MG CAPSULE PO SCH ×2 (10:49→17:11)
[2017-09-28] MEDS: TRAMADOL HCL 50 MG TABLET PO SCH ×2 (10:50→21:08)
[2017-09-28] MEDS: GLIMEPIRIDE 1 MG TABLET PO SCH ×2 (10:50→17:11)
[2017-09-28 11:12] LABS: CREATINE KINASE MB 0.94 ng/mL (<4.55); TROPONIN I 0.576 ng/mL
[2017-09-28 11:19] LABS: APPEARANCE,URINE CLEAR; BILIRUBIN,URINE NEGATIVE (NEGATIVE); COLOR,URINE AMBER; GLUCOSE, URINE NEGATIVE (NEGATIVE); KETONES,URINE NEGATIVE (NEGATIVE); LEUKOCYTE ESTERASE,URINE TRACE (NEGATIVE); NITRITE,URINE NEGATIVE (NEGATIVE); PROTEIN,URINE 30 mg/dL (NEGATIVE); URINE SPECIFIC GRAVITY 1.024; UROBILINOGEN,URINE NEGATIVE mg/dL (<2.0)
--- NOTE | 2017-09-28 11:21 | PDOC PROGRESS REPORT ---
Subjective Progress Note for:: 09/28/17 Subjective:: Patient seems to be doing better with gradual improvement. Pt is denying any chest arm or neck discomfort. Patient denying any PND, orthopnea. Patient denied any sustained palpitations, dizziness, syncope, near syncope. Patient denying any fever chills. Patient today complaining of abdominal pain. However I am told that she has ambulated in the hallway by the physical therapist/nurses and did fine. Patient is maintaining sinus rhythm. Review of systems: Rest review of systems negative. Medications: Medications have been reviewed. Reason For Visit: NON ST [place] Physical Exam Vital Signs: Temp Pulse Resp BP Pulse Ox 98.0 F 76 18 114/47 L 92 09/28/17 07:07 09/28/17 07:07 09/28/17 07:07 09/28/17 07:07 09/28/17 07:07 Intake & Output 09/27/17 09/28/17 09/29/17 06:59 06:59 06:59 Intake Total 920 750 Output Total 1650 1400 Balance -730 -650 Weight 96.1 kg 94.6 kg Exam: GENERAL: well-nourished and in no acute distress. Alert and oriented x3 HEAD: Atraumatic, normocephalic. EYES: Pupils equal round and reactive to light, extraocular movements intact, sclera anicteric, conjunctiva are normal. ENT: TMs normal, nares patent, oropharynx clear without exudates. Moist mucous membranes. No oral ulcerations or bleeding gums noted NECK: supple without lymphadenopathy. Trachea is central. No cervical or axillary lymphadenopathy noted. Carotids are 2+, JVD WNL LUNGS: Respiration seems nonlabored, no significant accessory muscle action noted. Breath sounds clear to auscultation bilaterally and equal noted. No wheezes rales or rhonchi noted. No significant dullness noted on percussion. CHEST: Palpation of the chest wall shows no significant chest wall tenderness. 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 ABDOMEN: Soft, no significant tenderness appreciated, normoactive bowel sounds. No guarding, no rebound. No rigidity noted . No masses appreciated. EXTREMITIES: Pedal pulses are 1-2+, no calf tenderness noted. No clubbing or cyanosis. negative pedal edema noted NEUROLOGICAL: Focused neurological exam showed no significant neurologic deficit. Normal speech, no focal weakness appreciated. PSYCH: Normal mood, normal affect. Judgment and insight within normal limits. SKIN: No significant ecchymosis, skin is noted to be warm. MUSCULOSKELETAL EXAM: No significant acute joint swelling noted. Results Laboratory Results: 09/28/17 04:50 09/28/17 04:50 09/28/17 09/28/17 04:50 04:50 WBC 8.8 RBC 3.83 Hgb 11.8 L Hct 33.7 L MCV 88 MCH 30.7 MCHC 34.9 RDW 13.4 Plt Count 240 Sodium 137.4 Potassium 4.8 Chloride 98 Carbon Dioxide 23 Anion Gap 16 BUN 22 H Creatinine 1.32 H Est GFR ( Amer) 47 L Est GFR (Non-Af Amer) 39 L Glucose 176 H Calcium 9.8 Magnesium 1.5 L 09/25/17 09/25/17 09/25/17 18:26 23:49 23:49 Creatine Kinase 36 CK-MB (CK-2) 1.29 1.05 Troponin I 0.916 0.827 NT-Pro-B Natriuret Pep 09/26/17 09/26/17 09/26/17 05:44 05:44 12:03 Creatine Kinase 37 35 CK-MB (CK-2) 1.24 Troponin I 1.050 NT-Pro-B Natriuret Pep 6300 H 09/26/17 09/26/17 09/26/17 12:03 17:45 17:45 Creatine Kinase 41 CK-MB (CK-2) 0.96 1.04 Troponin I 0.622 0.863 NT-Pro-B Natriuret Pep 09/26/17 09/26/17 09/27/17 23:50 23:50 04:39 Creatine Kinase 44 CK-MB (CK-2) 1.00 Troponin I 0.907 NT-Pro-B Natriuret Pep 4930 H 09/27/17 09/27/17 09/27/17 10:29 10:29 15:30 Creatine Kinase 36 37 CK-MB (CK-2) 0.97 Troponin I 0.535 NT-Pro-B Natriuret Pep 09/27/17 09/27/17 09/27/17 15:30 21:46 21:46 Creatine Kinase 38 CK-MB (CK-2) 0.86 0.96 Troponin I 0.575 0.471 NT-Pro-B Natriuret Pep 09/28/17 09/28/17 09/28/17 04:50 10:27 10:27 Creatine Kinase 33 CK-MB (CK-2) 0.94 Troponin I 0.576 NT-Pro-B Natriuret Pep 4780 H Impressions: Chest X-Ray 09/25/17 15:59 IMPRESSION: NO ACUTE RADIOGRAPHIC FINDING IN THE CHEST. Abdomen/Pelvis CT 09/27/17 00:00 IMPRESSION: NO ACUTE FINDINGS WITHIN THE CHEST, ABDOMEN, OR PELVIS. CORONARY ARTERY DISEASE. ENLARGED PULMONARY ARTERY TRUNK SUGGESTIVE OF PULMONARY ARTERY HYPERTENSION. CORRELATE WITH ECHOCARDIOGRAM. BILATERAL ADRENAL ADENOMAS. CORRELATE WITH BIOCHEMICAL MARKERS. ADDITIONAL CHRONIC CHANGES ABOVE. Chest CT 09/27/17 00:00 IMPRESSION: NO ACUTE FINDINGS WITHIN THE CHEST, ABDOMEN, OR PELVIS. CORONARY ARTERY DISEASE. ENLARGED PULMONARY ARTERY TRUNK SUGGESTIVE OF PULMONARY ARTERY HYPERTENSION. CORRELATE WITH ECHOCARDIOGRAM. BILATERAL ADRENAL ADENOMAS. CORRELATE WITH BIOCHEMICAL MARKERS. ADDITIONAL CHRONIC CHANGES ABOVE. Assessment & Plan - Diagnosis (1) Non-ST elevated myocardial infarction Is this a current diagnosis for this admission?: Yes (2) CAD (coronary artery disease) Qualifiers: Coronary Disease-Associated Artery/Lesion type: [place] artery [place] vs. transplanted heart: [place] heart Associated angina: angina presence unspecified Qualified Code(s): I25.10 - Atherosclerotic heart disease of [place] coronary artery without angina pectoris Is this a current diagnosis for this admission?: Yes (3) Hyperlipemia Qualifiers: Hyperlipidemia type: other hyperlipidemia Qualified Code(s): E78.4 - Other hyperlipidemia Is this a current diagnosis for this admission?: Yes (4) Hypertension Qualifiers: Hypertension type: essential hypertension Qualified Code(s): I10 - Essential (primary) hypertension Is this a current diagnosis for this admission?: Yes (5) Type 2 diabetes mellitus Qualifiers: Diabetes mellitus buttermaker continuous churn insulin use: unspecified assisted insulin use status Diabetes mellitus complication status: with unspecified complications Qualified Code(s): E11.8 - Type 2 diabetes mellitus with unspecified complications Is this a current diagnosis for this admission?: Yes (6) Depression Qualifiers: Depression Type: unspecified Qualified Code(s): F32.9 - Major depressive disorder, single episode, unspecified Is this a current diagnosis for this admission?: Yes - Notes Notes: CT scan of the chest showed enlarged pulmonary arteries. Patient is obese and somewhat physically inactive. Feel that we need to rule out pulmonary embolism. A VQ scan will be ordered by the federal java developer. Patient also has abdominal discomfort. Possibly constipated. This is being optimized. It seems patient has multiple other small complaints and may have underlying depression. Management may need to be optimized. Patient encouraged to have sleep study performed. Patient does give history suggestive of underlying sleep apnea syndrome. Non-ST segment elevation myocardial infarction: Patient ruled in by this by virtue of EKG changes and also positive enzyme. Patient to be treated with Lovenox aspirin, Plavix, statins, Ranexa, beta blockers, MICHAEL inhibitor/ARB. 2D echo results were reviewed.. Patient to report any recurrence of chest pain. Patient to be scheduled for a stress testing. Right now patient prefers medical management. Coronary artery disease: Please see management above. Patient does describe history of cardiac catheterization several years ago at [facility] - [place] during which she was noted to have some blockages not needing stents. Hyperlipidemia: Currently stable. Have placed patient on Lipitor 40 mg p.o. nightly. Hypertension: Blood pressure goal is 140/90 or less. Avoid any hypotension or severe hypertension. Diabetes: Recommend good control of blood sugar. However should avoid any hypoglycemia and hyperglycemia. Patient being expertly managed by primary care M.D/hospitalist Dysthymia: Patient has history of anxiety depression. Recommend anxiolytics. Currently is started on anxiolytics. - Time Time with patient: Greater than 35 minutes - CODE STATUS was discussed, patient remains full code. Surrogate decision-maker unchanged. Multiple medical problems were addressed. More than 50% of the time spent coordinating care, discussing management plans with involved caregivers. Management plans discussed with involved personnels. Medical decision making was of moderate to high complexity, patient's has multiple comorbidities. Medications reviewed and adjusted accordingly: Yes
[2017-09-28 11:25] LABS: ALANINE AMINOTRANSFERASE 23 U/L (9-52); ALBUMIN 4.2 g/dL (3.5-5.0); ALKALINE PHOSPHATASE 67 U/L (38-126); ASPARTATE AMINO TRANSFERASE 19 U/L (14-36); BILIRUBIN,DIRECT 0.4 mg/dL (0.0-0.4); BILIRUBIN,TOTAL 0.5 mg/dL (0.2-1.3); LIPASE 132.9 U/L (23-300); TOTAL PROTEIN 6.6 g/dL (6.3-8.2)
--- NOTE | 2017-09-28 11:36 | RADIOLOGY REPORT (SQ) ---
EXAM DESCRIPTION: CHEST 2 VIEWS COMPLETED DATE/TIME: 09/28/2017 11:28 am REASON FOR STUDY: chest pain COMPARISON: 05/06/2014 EXAM PARAMETERS: NUMBER OF VIEWS: two views TECHNIQUE: Digital Frontal and Lateral radiographic views of the chest acquired. RADIATION DOSE: NA LIMITATIONS: none FINDINGS: LUNGS AND PLEURA: No new with opacities, masses or pneumothorax. No pleural effusion. MEDIASTINUM AND HILAR STRUCTURES: No masses or contour abnormalities. HEART AND VASCULAR STRUCTURES: Heart normal size. No evidence for failure. BONES: No acute findings. HARDWARE: None in the chest. OTHER: No other significant finding. IMPRESSION: NO ACUTE RADIOGRAPHIC FINDING IN THE CHEST. TECHNICAL DOCUMENTATION: JOB ID: [id number] [employer]- All Rights Reserved Reading location - IP/workstation name: [email or web address]
[2017-09-28] MEDS: POLYETHYLENE GLYCOL 3350 POWDER 17 GM/1 PACKET PO SCH (13:21)
[2017-09-28] MEDS ORDERED: ONDANSETRON HCL INJ/PF 4 MG/2 ML SDV IV PRN (13:22)
[2017-09-28] MEDS: ALPRAZOLAM 0.25 MG TABLET PO PRN (15:22)
[2017-09-28] MEDS: PANTOPRAZOLE SODIUM 40 MG VIAL IV SCH (21:09)
[2017-09-28] MEDS: ATORVASTATIN CALCIUM 40 MG TABLET PO SCH (21:18)
[2017-09-29] MEDS: HYDRALAZINE HCL 50 MG TABLET PO SCH ×3 (05:10→21:17)
[2017-09-29] MEDS: LEVOTHYROXINE SODIUM 0.025 MG TABLET PO SCH (05:11)
[2017-09-29] MEDS: LEVOTHYROXINE SODIUM 0.1 MG TABLET PO SCH (05:11)
[2017-09-29] MEDS: ALPRAZOLAM 0.25 MG TABLET PO PRN ×2 (05:12→21:17)
[2017-09-29 07:16] LABS: ABSOLUTE EOSINOPHILS # (AUTO) 0.3 10^3/uL (0.0-0.6); ABSOLUTE LYMPHOCYTES (AUTO) 0.9 10^3/uL (0.5-4.7); ABSOLUTE MONOCYTES (AUTO) 0.7 10^3/uL (0.1-1.4); ABSOLUTE NEUT (AUTO) 7.4 10^3/uL (1.7-8.2); BASOPHILS % (AUTO) 0.4 % (0-2); EOSINOPHILS % (AUTO) 3.1 % (0-6); HEMATOCRIT 32.6 % (36.0-47.0); HEMOGLOBIN 11.4 g/dL (12.0-15.5); LYMPHOCYTES % (AUTO) 9.7 % (13-45); MEAN CORPUSCULAR HEMOGLOBIN 30.8 pg (27.0-33.4); MEAN CORPUSCULAR VOLUME 88 fl (80-97); MONOCYTES % (AUTO) 7.4 % (3-13); PLATELET COUNT 246 10^3/uL (150-450); RED CELL DISTRIBUTION WIDTH 13.7 % (11.5-14.0); SEGMENTED NEUTROPHILS % (AUTO) 79.4 % (42-78); TOTAL CELLS COUNTED % (AUTO) 100 %; WHITE BLOOD COUNT 9.3 10^3/uL (4.0-10.5)
--- NOTE | 2017-09-29 08:30 | PDOC PROGRESS REPORT ---
Subjective Progress Note for:: 09/29/17 Subjective:: Patient's denied any abdominal pain anymore She is denied any chest pain Denied any shortness of the breath Patient unable to get the VQ scan yesterday because patient was not feeling well yesterday but she thinks she can able to do it today Reason For Visit: NON ST TX Physical Exam Vital Signs: Temp Pulse Resp BP Pulse Ox 97.2 F 73 16 130/64 H 91 L 09/29/17 03:27 09/29/17 03:27 09/29/17 03:27 09/29/17 05:10 09/29/17 03:27 Intake & Output 09/28/17 09/29/17 09/30/17 06:59 06:59 06:59 Intake Total 750 1405 Output Total 1400 650 Balance -650 755 Weight 94.6 kg 96.5 kg General appearance: PRESENT: no acute distress, well-developed, well-nourished Head exam: PRESENT: atraumatic, normocephalic Eye exam: PRESENT: conjunctiva pink, EOMI, PERRLA. ABSENT: scleral icterus Ear exam: PRESENT: normal external ear exam Mouth exam: PRESENT: moist, tongue midline Neck exam: PRESENT: full ROM. ABSENT: carotid bruit, JVD, lymphadenopathy, thyromegaly Respiratory exam: PRESENT: clear to auscultation elena Cardiovascular exam: PRESENT: RRR. ABSENT: diastolic murmur, rubs, systolic murmur Pulses: PRESENT: normal [place] pedis pul, +2 pedal pulses bilateral Vascular exam: PRESENT: normal capillary refill GI/Abdominal exam: PRESENT: normal bowel sounds, soft. ABSENT: distended, guarding, mass, organolmegaly, rebound, tenderness Rectal exam: PRESENT: deferred Extremities exam: ABSENT: pedal edema Musculoskeletal exam: PRESENT: ambulatory Neurological exam: PRESENT: alert, awake, oriented to person, oriented to place , oriented to time, oriented to situation, CN II-XII grossly intact. ABSENT: motor sensory deficit Psychiatric exam: PRESENT: appropriate affect, normal mood. ABSENT: homicidal ideation, suicidal ideation Skin exam: PRESENT: dry, intact, warm. ABSENT: cyanosis, rash Results Laboratory Results: 09/29/17 06:59 09/29/17 06:59 09/28/17 09/28/17 09/29/17 10:27 10:57 06:59 WBC RBC Hgb Hct MCV MCH MCHC RDW Plt Count Seg Neutrophils % Lymphocytes % Monocytes % Eosinophils % Basophils % Absolute Neutrophils Absolute Lymphocytes Absolute Monocytes Absolute Eosinophils Absolute Basophils Sodium Cancelled Potassium Cancelled Chloride Cancelled Carbon Dioxide Cancelled Anion Gap Cancelled BUN Cancelled Creatinine Cancelled Est GFR ( Amer) Cancelled Est GFR (Non-Af Amer) Cancelled Glucose Cancelled Calcium Cancelled Total Bilirubin 0.5 AST 19 ALT 23 Alkaline Phosphatase 67 Total Protein 6.6 Albumin 4.2 Lipase 132.9 Urine Color SHAQ Urine Appearance CLEAR Urine pH 5.0 Ur Specific [place] 1.024 Urine Protein 30 H Urine Glucose (UA) NEGATIVE Urine Ketones NEGATIVE Urine Blood NEGATIVE Urine Nitrite NEGATIVE Ur Leukocyte Esterase TRACE H Urine WBC (Auto) 6 Urine RBC (Auto) 1 09/29/17 06:59 WBC 9.3 RBC 3.70 L Hgb 11.4 L Hct 32.6 L MCV 88 MCH 30.8 MCHC 35.0 RDW 13.7 Plt Count 246 Seg Neutrophils % 79.4 H Lymphocytes % 9.7 L Monocytes % 7.4 Eosinophils % 3.1 Basophils % 0.4 Absolute Neutrophils 7.4 Absolute Lymphocytes 0.9 Absolute Monocytes 0.7 Absolute Eosinophils 0.3 Absolute Basophils 0.0 Sodium Potassium Chloride Carbon Dioxide Anion Gap BUN Creatinine Est GFR ( Amer) Est GFR (Non-Af Amer) Glucose Calcium Total Bilirubin AST ALT Alkaline Phosphatase Total Protein Albumin Lipase Urine Color Urine Appearance Urine pH Ur Specific [place] Urine Protein Urine Glucose (UA) Urine Ketones Urine Blood Urine Nitrite Ur Leukocyte Esterase Urine WBC (Auto) Urine RBC (Auto) 09/25/17 09/25/17 09/25/17 18:26 23:49 23:49 Creatine Kinase 36 CK-MB (CK-2) 1.29 1.05 Troponin I 0.916 0.827 NT-Pro-B Natriuret Pep 09/26/17 09/26/17 09/26/17 05:44 05:44 12:03 Creatine Kinase 37 35 CK-MB (CK-2) 1.24 Troponin I 1.050 NT-Pro-B Natriuret Pep 6300 H 09/26/17 09/26/17 09/26/17 12:03 17:45 17:45 Creatine Kinase 41 CK-MB (CK-2) 0.96 1.04 Troponin I 0.622 0.863 NT-Pro-B Natriuret Pep 09/26/17 09/26/17 09/27/17 23:50 23:50 04:39 Creatine Kinase 44 CK-MB (CK-2) 1.00 Troponin I 0.907 NT-Pro-B Natriuret Pep 4930 H 09/27/17 09/27/17 09/27/17 10:29 10:29 15:30 Creatine Kinase 36 37 CK-MB (CK-2) 0.97 Troponin I 0.535 NT-Pro-B Natriuret Pep 09/27/17 09/27/17 09/27/17 15:30 21:46 21:46 Creatine Kinase 38 CK-MB (CK-2) 0.86 0.96 Troponin I 0.575 0.471 NT-Pro-B Natriuret Pep 09/28/17 09/28/17 09/28/17 04:50 10:27 10:27 Creatine Kinase 33 CK-MB (CK-2) 0.94 Troponin I 0.576 NT-Pro-B Natriuret Pep 4780 H Impressions: Abdomen/Pelvis CT 09/27/17 00:00 IMPRESSION: NO ACUTE FINDINGS WITHIN THE CHEST, ABDOMEN, OR PELVIS. CORONARY ARTERY DISEASE. ENLARGED PULMONARY ARTERY TRUNK SUGGESTIVE OF PULMONARY ARTERY HYPERTENSION. CORRELATE WITH ECHOCARDIOGRAM. BILATERAL ADRENAL ADENOMAS. CORRELATE WITH BIOCHEMICAL MARKERS. ADDITIONAL CHRONIC CHANGES ABOVE. Chest CT 09/27/17 00:00 IMPRESSION: NO ACUTE FINDINGS WITHIN THE CHEST, ABDOMEN, OR PELVIS. CORONARY ARTERY DISEASE. ENLARGED PULMONARY ARTERY TRUNK SUGGESTIVE OF PULMONARY ARTERY HYPERTENSION. CORRELATE WITH ECHOCARDIOGRAM. BILATERAL ADRENAL ADENOMAS. CORRELATE WITH BIOCHEMICAL MARKERS. ADDITIONAL CHRONIC CHANGES ABOVE. Chest X-Ray 09/28/17 00:00 IMPRESSION: NO ACUTE RADIOGRAPHIC FINDING IN THE CHEST. 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 transplanted heart: [place] heart Associated angina: angina presence unspecified Qualified Code(s): I25.10 - Atherosclerotic heart disease of [place] coronary artery without angina pectoris Is this a current diagnosis for this admission?: Yes Plan: Continues follow with the cardiology (4) Type 2 diabetes mellitus Qualifiers: Diabetes mellitus long chain beamer insulin use: unspecified residential insulin use status Diabetes mellitus complication status: with unspecified complications Qualified Code(s): E11.8 - Type 2 diabetes mellitus with unspecified complications Is this a current diagnosis for this admission?: Yes Plan: Continues a sliding scale and current medication (5) Hypertension Qualifiers: Hypertension type: essential hypertension Qualified Code(s): I10 - Essential (primary) hypertension Is this a current diagnosis for this admission?: Yes Plan: Continues to restart on the p.o. medications (6) Hyperlipemia Qualifiers: Hyperlipidemia type: other hyperlipidemia Qualified Code(s): E78.4 - Other hyperlipidemia Is this a current diagnosis for this admission?: Yes Plan: Continues to statin (7) Depression Qualifiers: Depression Type: unspecified Qualified Code(s): F32.9 - Major depressive disorder, single episode, unspecified Is this a current diagnosis for this admission?: Yes (8) Abdominal pain Qualifiers: Abdominal location: right lower quadrant Qualified Code(s): R10.31 - Right lower quadrant pain Is this a current diagnosis for this admission?: Yes Plan: Most likely IBS patients may be needed outpatients colonoscopy currently all resolved - Time Time Spent with patient: 15-24 minutes Medications reviewed and adjusted accordingly: Yes Anticipated discharge: Home - Inpatient Certification Medical Necessity: Need Close Monitoring Due to Risk of Patient Decompensation Post Hospital Care: D/C Church Musician Documentation - Plan Summary Plan Summary: Continues to current medications discussed with the patient and the daughter
[2017-09-29 09:11] LABS: ANION GAP 15 (5-19); BLOOD UREA NITROGEN 28 mg/dL (7-20); CALCIUM 9.4 mg/dL (8.4-10.2); CARBON DIOXIDE 25 mmol/L (22-30); CHLORIDE 95 mmol/L (98-107); GLUCOSE 214 mg/dL (75-110); POTASSIUM 5.7 mmol/L (3.6-5.0); SODIUM 134.6 mmol/L (137-145)
[2017-09-29] MEDS: GLIMEPIRIDE 1 MG TABLET PO SCH ×2 (09:36→17:26)
[2017-09-29] MEDS: GABAPENTIN 100 MG CAPSULE PO SCH ×2 (09:36→21:17)
[2017-09-29] MEDS: PANTOPRAZOLE SODIUM 40 MG VIAL IV SCH ×2 (09:36→21:17)
[2017-09-29] MEDS: CLOPIDOGREL BISULFATE 75 MG TABLET PO SCH (09:37)
[2017-09-29] MEDS: TRAMADOL HCL 50 MG TABLET PO SCH ×2 (09:37→21:16)
[2017-09-29] MEDS: SITAGLIPTIN PHOSPHATE 50 MG TABLET PO SCH (09:37)
[2017-09-29] MEDS: METFORMIN HCL 500 MG TABLET PO SCH (09:38)
[2017-09-29] MEDS: METOPROLOL SUCCINATE 50 MG TAB.SR.24H PO SCH ×2 (09:38→21:15)
[2017-09-29] MEDS: RANOLAZINE 500 MG TAB.SR.12H PO SCH ×2 (09:39→21:15)
[2017-09-29] MEDS: ENOXAPARIN SODIUM INJ 40 MG/0.4 ML DISP.SYRIN SUBCUT SCH (09:40)
[2017-09-29] MEDS: DOCUSATE SODIUM 100 MG CAPSULE PO SCH ×2 (09:44→17:26)
--- NOTE | 2017-09-29 10:21 | PDOC PROGRESS REPORT ---
Subjective Progress Note for:: 09/29/17 Subjective:: Patient feels generally unwell but has no other significant complaint. It seems she went down for VQ scan yesterday but had some nausea and vomiting downstairs therefore opted not to pursue the test. She is willing to do the test today. Pt is denying any chest arm or neck discomfort. Patient denying any PND, orthopnea. Patient denied any sustained palpitations, dizziness, syncope, near syncope. Patient denying any fever chills. Patient is maintaining sinus rhythm. Review of systems: Rest review of systems negative. Medications: Medications have been reviewed. Reason For Visit: NON ST IA Physical Exam Vital Signs: Temp Pulse Resp BP Pulse Ox 97.3 F 72 18 126/89 H 95 09/29/17 07:19 09/29/17 07:19 09/29/17 07:19 09/29/17 07:19 09/29/17 07:19 Intake & Output 09/28/17 09/29/17 09/30/17 06:59 06:59 06:59 Intake Total 750 1405 Output Total 1400 650 Balance -650 755 Weight 94.6 kg 96.5 kg Exam: GENERAL: well-nourished and in no acute distress. Alert and oriented x3 HEAD: Atraumatic, normocephalic. EYES: Pupils equal round and reactive to light, extraocular movements intact, sclera anicteric, conjunctiva are normal. ENT: TMs normal, nares patent, oropharynx clear without exudates. Moist mucous membranes. No oral ulcerations or bleeding gums noted NECK: supple without lymphadenopathy. Trachea is central. No cervical or axillary lymphadenopathy noted. Carotids are 2+, JVD WNL LUNGS: Respiration seems nonlabored, no significant accessory muscle action noted. Breath sounds clear to auscultation bilaterally and equal noted. No wheezes rales or rhonchi noted. No significant dullness noted on percussion. CHEST: Palpation of the chest wall shows no significant chest wall tenderness. 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 ABDOMEN: Soft, no significant tenderness appreciated, normoactive bowel sounds. No guarding, no rebound. No rigidity noted . No masses appreciated. EXTREMITIES: Pedal pulses are 1-2+, no calf tenderness noted. No clubbing or cyanosis. negative pedal edema noted NEUROLOGICAL: Focused neurological exam showed no significant neurologic deficit. Normal speech, no focal weakness appreciated. PSYCH: Normal mood, normal affect. Judgment and insight within normal limits. SKIN: No significant ecchymosis, skin is noted to be warm. MUSCULOSKELETAL EXAM: No significant acute joint swelling noted. Results Laboratory Results: 09/29/17 06:59 09/29/17 08:37 09/28/17 09/28/17 09/29/17 10:27 10:57 06:59 WBC RBC Hgb Hct MCV MCH MCHC RDW Plt Count Seg Neutrophils % Lymphocytes % Monocytes % Eosinophils % Basophils % Absolute Neutrophils Absolute Lymphocytes Absolute Monocytes Absolute Eosinophils Absolute Basophils Sodium Cancelled Potassium Cancelled Chloride Cancelled Carbon Dioxide Cancelled Anion Gap Cancelled BUN Cancelled Creatinine Cancelled Est GFR ( Amer) Cancelled Est GFR (Non-Af Amer) Cancelled Glucose Cancelled Calcium Cancelled Total Bilirubin 0.5 AST 19 ALT 23 Alkaline Phosphatase 67 Total Protein 6.6 Albumin 4.2 Lipase 132.9 Urine Color SHAQ Urine Appearance CLEAR Urine pH 5.0 Ur Specific [place] 1.024 Urine Protein 30 H Urine Glucose (UA) NEGATIVE Urine Ketones NEGATIVE Urine Blood NEGATIVE Urine Nitrite NEGATIVE Ur Leukocyte Esterase TRACE H Urine WBC (Auto) 6 Urine RBC (Auto) 1 09/29/17 09/29/17 06:59 08:37 WBC 9.3 RBC 3.70 L Hgb 11.4 L Hct 32.6 L MCV 88 MCH 30.8 MCHC 35.0 RDW 13.7 Plt Count 246 Seg Neutrophils % 79.4 H Lymphocytes % 9.7 L Monocytes % 7.4 Eosinophils % 3.1 Basophils % 0.4 Absolute Neutrophils 7.4 Absolute Lymphocytes 0.9 Absolute Monocytes 0.7 Absolute Eosinophils 0.3 Absolute Basophils 0.0 Sodium 134.6 L Potassium 5.7 H Chloride 95 L Carbon Dioxide 25 Anion Gap 15 BUN 28 H Creatinine 1.44 H Est GFR ( Amer) 42 L Est GFR (Non-Af Amer) 35 L Glucose 214 H Calcium 9.4 Total Bilirubin AST ALT Alkaline Phosphatase Total Protein Albumin Lipase Urine Color Urine Appearance Urine pH Ur Specific [place] Urine Protein Urine Glucose (UA) Urine Ketones Urine Blood Urine Nitrite Ur Leukocyte Esterase Urine WBC (Auto) Urine RBC (Auto) 09/25/17 09/25/1709/25/18 18:26 23:49 23:49 Creatine Kinase 36 CK-MB (CK-2) 1.29 1.05 Troponin I 0.916 0.827 NT-Pro-B Natriuret Pep 09/26/17 09/26/17 09/26/17 05:44 05:44 12:03 Creatine Kinase 37 35 CK-MB (CK-2) 1.24 Troponin I 1.050 NT-Pro-B Natriuret Pep 6300 H 09/26/17 09/26/17 09/26/17 12:03 17:45 17:45 Creatine Kinase 41 CK-MB (CK-2) 0.96 1.04 Troponin I 0.622 0.863 NT-Pro-B Natriuret Pep 09/26/17 09/26/17 09/27/17 23:50 23:50 04:39 Creatine Kinase 44 CK-MB (CK-2) 1.00 Troponin I 0.907 NT-Pro-B Natriuret Pep 4930 H 09/27/17 09/27/17 09/27/17 10:29 10:29 15:30 Creatine Kinase 36 37 CK-MB (CK-2) 0.97 Troponin I 0.535 NT-Pro-B Natriuret Pep 09/27/17 09/27/17 09/27/17 15:30 21:46 21:46 Creatine Kinase 38 CK-MB (CK-2) 0.86 0.96 Troponin I 0.575 0.471 NT-Pro-B Natriuret Pep 09/28/17 09/28/17 09/28/17 04:50 10:27 10:27 Creatine Kinase 33 CK-MB (CK-2) 0.94 Troponin I 0.576 NT-Pro-B Natriuret Pep 4780 H Impressions: Abdomen/Pelvis CT 09/27/17 00:00 IMPRESSION: NO ACUTE FINDINGS WITHIN THE CHEST, ABDOMEN, OR PELVIS. CORONARY ARTERY DISEASE. ENLARGED PULMONARY ARTERY TRUNK SUGGESTIVE OF PULMONARY ARTERY HYPERTENSION. CORRELATE WITH ECHOCARDIOGRAM. BILATERAL ADRENAL ADENOMAS. CORRELATE WITH BIOCHEMICAL MARKERS. ADDITIONAL CHRONIC CHANGES ABOVE. Chest CT 09/27/17 00:00 IMPRESSION: NO ACUTE FINDINGS WITHIN THE CHEST, ABDOMEN, OR PELVIS. CORONARY ARTERY DISEASE. ENLARGED PULMONARY ARTERY TRUNK SUGGESTIVE OF PULMONARY ARTERY HYPERTENSION. CORRELATE WITH ECHOCARDIOGRAM. BILATERAL ADRENAL ADENOMAS. CORRELATE WITH BIOCHEMICAL MARKERS. ADDITIONAL CHRONIC CHANGES ABOVE. Chest X-Ray 09/28/17 00:00 IMPRESSION: NO ACUTE RADIOGRAPHIC FINDING IN THE CHEST. Assessment & Plan - Diagnosis (1) Non-ST elevated myocardial infarction Is this a current diagnosis for this admission?: Yes (2) CAD (coronary artery disease) Qualifiers: Coronary Disease-Associated Artery/Lesion type: [place] artery [place] vs. transplanted heart: [place] heart Associated angina: angina presence unspecified Qualified Code(s): I25.10 - Atherosclerotic heart disease of [place] coronary artery without angina pectoris Is this a current diagnosis for this admission?: Yes (3) Hyperlipemia Qualifiers: Hyperlipidemia type: other hyperlipidemia Qualified Code(s): E78.4 - Other hyperlipidemia Is this a current diagnosis for this admission?: Yes (4) Hypertension Qualifiers: Hypertension type: essential hypertension Qualified Code(s): I10 - Essential (primary) hypertension Is this a current diagnosis for this admission?: Yes (5) Type 2 diabetes mellitus Qualifiers: Diabetes mellitus assisted insulin use: unspecified predatory animal exterminator insulin use status Diabetes mellitus complication status: with unspecified complications Qualified Code(s): E11.8 - Type 2 diabetes mellitus with unspecified complications Is this a current diagnosis for this admission?: Yes (6) Depression Qualifiers: Depression Type: unspecified Qualified Code(s): F32.9 - Major depressive disorder, single episode, unspecified Is this a current diagnosis for this admission?: Yes (7) Chronic kidney disease (CKD) Qualifiers: Chronic kidney disease stage: stage 3 (moderate) Qualified Code(s): N18.3 - Chronic kidney disease, stage 3 (moderate) Is this a current diagnosis for this admission?: Yes - Notes Notes: Enlarged pulmonary artery and finding of pulmonary hypertension on CT chest: Patient is obese and has risk factors for recurrent PE. Patient going for VQ scan today. Hyperkalemia: Potassium is noted to be high. Patient receiving Kayexalate. Chronic kidney disease: Creatinine is 1.4. Patient seems to have chronic kidney disease. Avoid nonsteroidals and iodinated contrast agents. Non-ST segment elevation myocardial infarction: Patient ruled in by this by virtue of EKG changes and also positive enzyme. Patient to be treated with Lovenox aspirin, Plavix, statins, Ranexa, beta blockers, MICHAEL inhibitor/ARB. 2D echo results were reviewed. Patient to report any recurrence of chest pain. Patient to be scheduled for a stress testing. Right now patient prefers medical management. Coronary artery disease: Please see management above. Patient does describe history of cardiac catheterization several years ago at [facility] during which she was noted to have some blockages not needing stents. Hyperlipidemia: Currently stable. Have placed patient on Lipitor 40 mg p.o. nightly. Hypertension: Blood pressure goal is 140/90 or less. Avoid any hypotension or severe hypertension. Diabetes: Recommend good control of blood sugar. However should avoid any hypoglycemia and hyperglycemia. Patient being expertly managed by primary care M.D/hospitalist Dysthymia: Patient has history of anxiety depression. Recommend anxiolytics. Currently is started on anxiolytics. - Time Time with patient: Greater than 35 minutes - CODE STATUS was discussed, patient remains full code. Surrogate decision-maker unchanged. Multiple medical problems were addressed. More than 50% of the time spent coordinating care, discussing management plans with involved caregivers. Management plans discussed with involved personnels. Medical decision making was of moderate to high complexity, patient's has multiple comorbidities. Medications reviewed and adjusted accordingly: Yes
[2017-09-29] MEDS ORDERED: SODIUM POLYSTYRENE SULFONATE 15 GM/60 ML PO ONE (11:00)
[2017-09-29] MEDS: POLYETHYLENE GLYCOL 3350 POWDER 17 GM/1 PACKET PO SCH (12:15)
--- NOTE | 2017-09-29 13:15 | RADIOLOGY REPORT (SQ) ---
EXAM DESCRIPTION: NM LUNG VENT/PERF SCAN COMPLETED DATE/TIME: 09/29/2017 1:07 pm REASON FOR STUDY: SOB, chest pain COMPARISON: None. RADIONUCLIDE AND DOSE: 5.3 millicuries TC-99m MAA Intravenous 31.3 millicuries TC-99m DTPA Inhaled aerosol TECHNIQUE: Eight views of the lungs acquired post ventilation of DTPA aerosol. Eight matching views of the lungs acquired following injection of MAA. LIMITATIONS: None. FINDINGS: VENTILATION: Symmetric and homogeneous distribution of DTPA aerosol during ventilatory pha se. No significant areas of photopenia. PERFUSION: Perfusion images with normal homogenous activity and no wedge-shaped or segmental defects. No ventilation-perfusion mismatches. OTHER: No other significant finding. IMPRESSION: NORMAL VENTILATION-PERFUSION LUNG SCAN. NEGATIVE FOR PULMONARY EMBOLI. TECHNICAL DOCUMENTATION: JOB ID: [id number] [employer]- All Rights Reserved Reading location - IP/workstation name: [email or web address]
[2017-09-29] MEDS: INSULIN LISPRO 100 UNIT/ML 3 ML VIAL SUBCUT PRN ×2 (13:31→21:17)
[2017-09-29] MEDS: ACETAMINOPHEN 325 MG TABLET PO PRN (17:25)
[2017-09-29] MEDS: ATORVASTATIN CALCIUM 40 MG TABLET PO SCH (21:28)
[2017-09-30] MEDS: MAG HYDROX/AL HYDROX/SIMETH SUSP 30 ML UDCUP PO PRN ×2 (00:15→18:52)
[2017-09-30 05:32] LABS: ANION GAP 15 (5-19); BLOOD UREA NITROGEN 27 mg/dL (7-20); CALCIUM 9.3 mg/dL (8.4-10.2); CARBON DIOXIDE 28 mmol/L (22-30); CHLORIDE 98 mmol/L (98-107); GLUCOSE 119 mg/dL (75-110); SODIUM 141.2 mmol/L (137-145)
[2017-09-30] MEDS: LEVOTHYROXINE SODIUM 0.025 MG TABLET PO SCH (06:02)
[2017-09-30] MEDS: HYDRALAZINE HCL 50 MG TABLET PO SCH ×3 (06:02→21:52)
[2017-09-30] MEDS: LEVOTHYROXINE SODIUM 0.1 MG TABLET PO SCH (06:03)
[2017-09-30 06:25] LABS: POTASSIUM 4.4 mmol/L (3.6-5.0)
--- NOTE | 2017-09-30 08:33 | PDOC PROGRESS REPORT ---
Subjective Progress Note for:: 09/30/17 Subjective:: Patient is currently doing well Denied any chest pain denied any shortness of the breath Patient still complains of on and off gas issue in the abdomen but no nausea no vomiting Patient's VQ scan is negative for any PE Reason For Visit: NON ST [place] Physical Exam Vital Signs: Temp Pulse Resp BP Pulse Ox 97.8 F 84 16 91/46 L 92 09/30/17 07:48 09/30/17 07:48 09/30/17 07:48 09/30/17 07:48 09/30/17 07:48 Intake & Output 09/29/17 09/30/17 10/01/17 06:59 06:59 06:59 Intake Total 1405 01495 Output Total 650 550 Balance 755 9510 Weight 96.5 kg 97.1 kg General appearance: PRESENT: no acute distress, well-developed, well-nourished Head exam: PRESENT: atraumatic, normocephalic Eye exam: PRESENT: conjunctiva pink, EOMI, PERRLA. ABSENT: scleral icterus Ear exam: PRESENT: normal external ear exam Mouth exam: PRESENT: moist, tongue midline Neck exam: PRESENT: full ROM. ABSENT: carotid bruit, JVD, lymphadenopathy, thyromegaly Respiratory exam: PRESENT: clear to auscultation elena Cardiovascular exam: PRESENT: RRR. ABSENT: diastolic murmur, rubs, systolic murmur Pulses: PRESENT: normal dorsalis pedis pul, +2 pedal pulses bilateral Vascular exam: PRESENT: normal capillary refill GI/Abdominal exam: PRESENT: normal bowel sounds, soft. ABSENT: distended, guarding, mass, organolmegaly, rebound, tenderness Rectal exam: PRESENT: deferred Extremities exam: ABSENT: pedal edema Musculoskeletal exam: PRESENT: ambulatory Neurological exam: PRESENT: alert, awake, oriented to person, oriented to place , oriented to time, oriented to situation, CN II-XII grossly intact. ABSENT: motor sensory deficit Psychiatric exam: PRESENT: appropriate affect, normal mood. ABSENT: homicidal ideation, suicidal ideation Skin exam: PRESENT: dry, intact, warm. ABSENT: cyanosis, rash Results Laboratory Results: 09/29/17 06:59 09/30/17 04:49 09/29/17 09/30/17 08:37 04:49 Sodium 134.6 L 141.2 Potassium 5.7 H 4.4 D Chloride 95 L 98 Carbon Dioxide 25 28 Anion Gap 15 15 BUN 28 H 27 H Creatinine 1.44 H 1.38 H Est GFR ( Amer) 42 L 45 L Est GFR (Non-Af Amer) 35 L 37 L Glucose 214 H 119 H Calcium 9.4 9.3 09/25/17 09/25/17 09/25/17 18:26 23:49 23:49 Creatine Kinase 36 CK-MB (CK-2) 1.29 1.05 Troponin I 0.916 0.827 NT-Pro-B Natriuret Pep 09/26/17 09/26/17 09/26/17 05:44 05:44 12:03 Creatine Kinase 37 35 CK-MB (CK-2) 1.24 Troponin I 1.050 NT-Pro-B Natriuret Pep 6300 H 09/26/17 09/26/17 09/26/17 12:03 17:45 17:45 Creatine Kinase 41 CK-MB (CK-2) 0.96 1.04 Troponin I 0.622 0.863 NT-Pro-B Natriuret Pep 09/26/17 09/26/17 09/27/17 23:50 23:50 04:39 Creatine Kinase 44 CK-MB (CK-2) 1.00 Troponin I 0.907 NT-Pro-B Natriuret Pep 4930 H 09/27/17 09/27/17 09/27/17 10:29 10:29 15:30 Creatine Kinase 36 37 CK-MB (CK-2) 0.97 Troponin I 0.535 NT-Pro-B Natriuret Pep 09/27/17 09/27/17 09/27/17 15:30 21:46 21:46 Creatine Kinase 38 CK-MB (CK-2) 0.86 0.96 Troponin I 0.575 0.471 NT-Pro-B Natriuret Pep 09/28/17 09/28/17 09/28/17 04:50 10:27 10:27 Creatine Kinase 33 CK-MB (CK-2) 0.94 Troponin I 0.576 NT-Pro-B Natriuret Pep 4780 H Impressions: Abdomen/Pelvis CT 09/27/17 00:00 IMPRESSION: NO ACUTE FINDINGS WITHIN THE CHEST, ABDOMEN, OR PELVIS. CORONARY ARTERY DISEASE. ENLARGED PULMONARY ARTERY TRUNK SUGGESTIVE OF PULMONARY ARTERY HYPERTENSION. CORRELATE WITH ECHOCARDIOGRAM. BILATERAL ADRENAL ADENOMAS. CORRELATE WITH BIOCHEMICAL MARKERS. ADDITIONAL CHRONIC CHANGES ABOVE. Chest CT 09/27/17 00:00 IMPRESSION: NO ACUTE FINDINGS WITHIN THE CHEST, ABDOMEN, OR PELVIS. CORONARY ARTERY DISEASE. ENLARGED PULMONARY ARTERY TRUNK SUGGESTIVE OF PULMONARY ARTERY HYPERTENSION. CORRELATE WITH ECHOCARDIOGRAM. BILATERAL ADRENAL ADENOMAS. CORRELATE WITH BIOCHEMICAL MARKERS. ADDITIONAL CHRONIC CHANGES ABOVE. Chest X-Ray 09/28/17 00:00 IMPRESSION: NO ACUTE RADIOGRAPHIC FINDING IN THE CHEST. Lung Scan-VQ NM 09/29/17 00:00 IMPRESSION: NORMAL VENTILATION-PERFUSION LUNG SCAN. NEGATIVE FOR PULMONARY EMBOLI. Assessment & Plan - Diagnosis (1) Chest pain Qualifiers: Chest pain type: unspecified Qualified Code(s): R07.9 - Chest pain, unspecified Is this a current diagnosis for this admission?: Yes Plan: Currently all resolved (2) Non-ST elevated myocardial infarction Is this a current diagnosis for this admission?: Yes Plan: Currently follow with the product mgr (3) CAD (coronary artery disease) Qualifiers: Coronary Disease-Associated Artery/Lesion type: [place] artery [place] vs. transplanted heart: [place] heart Associated angina: angina presence unspecified Qualified Code(s): I25.10 - Atherosclerotic heart disease of [place] coronary artery without angina pectoris Is this a current diagnosis for this admission?: Yes Plan: Continues follow with the cardiology (4) Type 2 diabetes mellitus Qualifiers: Diabetes mellitus refrigerator tester insulin use: unspecified refrigerator tester insulin use status Diabetes mellitus complication status: with unspecified complications Qualified Code(s): E11.8 - Type 2 diabetes mellitus with unspecified complications Is this a current diagnosis for this admission?: Yes Plan: Continues a sliding scale and current medication (5) Hypertension Qualifiers: Hypertension type: essential hypertension Qualified Code(s): I10 - Essential (primary) hypertension Is this a current diagnosis for this admission?: Yes Plan: Continues to restart on the p.o. medications (6) Hyperlipemia Qualifiers: Hyperlipidemia type: other hyperlipidemia Qualified Code(s): E78.4 - Other hyperlipidemia Is this a current diagnosis for this admission?: Yes Plan: Continues to statin (7) Depression Qualifiers: Depression Type: unspecified Qualified Code(s): F32.9 - Major depressive disorder, single episode, unspecified Is this a current diagnosis for this admission?: Yes (8) Abdominal pain Qualifiers: Abdominal location: right lower quadrant Qualified Code(s): R10.31 - Right lower quadrant pain Is this a current diagnosis for this admission?: Yes Plan: Most likely IBS patients may be needed outpatients colonoscopy currently all resolved - Time Time Spent with patient: 15-24 minutes Medications reviewed and adjusted accordingly: Yes Anticipated discharge: Home Within: Other - Inpatient Certification Medical Necessity: Need Close Monitoring Due to Risk of Patient Decompensation Post Hospital Care: D/C Linux System Engineer Documentation - Plan Summary Plan Summary: Continues current medications
[2017-09-30] MEDS: CLOPIDOGREL BISULFATE 75 MG TABLET PO SCH (10:20)
[2017-09-30] MEDS: TRAMADOL HCL 50 MG TABLET PO SCH ×2 (10:20→21:54)
[2017-09-30] MEDS: DOCUSATE SODIUM 100 MG CAPSULE PO SCH ×2 (10:20→18:31)
[2017-09-30] MEDS: RANOLAZINE 500 MG TAB.SR.12H PO SCH ×2 (10:20→21:54)
[2017-09-30] MEDS: SITAGLIPTIN PHOSPHATE 50 MG TABLET PO SCH (10:20)
[2017-09-30] MEDS: GABAPENTIN 100 MG CAPSULE PO SCH ×2 (10:20→21:54)
[2017-09-30] MEDS: GLIMEPIRIDE 1 MG TABLET PO SCH ×2 (10:20→18:31)
[2017-09-30] MEDS: ALPRAZOLAM 0.25 MG TABLET PO PRN ×2 (10:20→21:54)
[2017-09-30] MEDS: ENOXAPARIN SODIUM INJ 40 MG/0.4 ML DISP.SYRIN SUBCUT SCH (10:21)
[2017-09-30] MEDS: PANTOPRAZOLE SODIUM 40 MG VIAL IV SCH ×2 (10:21→21:55)
[2017-09-30] MEDS: METOPROLOL SUCCINATE 50 MG TAB.SR.24H PO SCH ×2 (10:25→21:54)
--- NOTE | 2017-09-30 11:08 | PDOC PROGRESS REPORT ---
Subjective Progress Note for:: 09/30/17 Subjective:: Patient feels generally improved today however Patient today woke up with headaches. Pt is denying any chest arm or neck discomfort. Patient denying any PND, orthopnea. Patient denied any sustained palpitations, dizziness, syncope, near syncope. Patient denying any fever chills. Patient is maintaining sinus rhythm. Review of systems: Rest review of systems negative. Medications: Medications have been reviewed. Reason For Visit: NON ST [place] Physical Exam Vital Signs: Temp Pulse Resp BP Pulse Ox 97.8 F 84 16 91/46 L 92 09/30/17 07:48 09/30/17 07:48 09/30/17 07:48 09/30/17 07:48 09/30/17 07:48 Intake & Output 09/29/17 09/30/17 10/01/17 06:59 06:59 06:59 Intake Total 1405 27232 Output Total 650 550 Balance 755 9510 Weight 96.5 kg 97.1 kg Exam: GENERAL: well-nourished and in no acute distress. Alert and oriented x3 HEAD: Atraumatic, normocephalic. EYES: Pupils equal round and reactive to light, extraocular movements intact, sclera anicteric, conjunctiva are normal. ENT: TMs normal, nares patent, oropharynx clear without exudates. Moist mucous membranes. No oral ulcerations or bleeding gums noted NECK: supple without lymphadenopathy. Trachea is central. No cervical or axillary lymphadenopathy noted. Carotids are 2+, JVD WNL LUNGS: Respiration seems nonlabored, no significant accessory muscle action noted. Breath sounds clear to auscultation bilaterally and equal noted. No wheezes rales or rhonchi noted. No significant dullness noted on percussion. CHEST: Palpation of the chest wall shows no significant chest wall tenderness. HEART: [place] [employer] DIRECTOR, No PSH, 1/6 SVEN aortic area, 1/6 [place] systolic murmur mitral area, no rubs, no gallops. ABDOMEN: Soft, no significant tenderness appreciated, normoactive bowel sounds. No guarding, no rebound. No rigidity noted . No masses appreciated. EXTREMITIES: Pedal pulses are 1-2+, no calf tenderness noted. No clubbing or cyanosis. negative pedal edema noted NEUROLOGICAL: Focused neurological exam showed no significant neurologic deficit. Normal speech, no focal weakness appreciated. PSYCH: Normal mood, normal affect. Judgment and insight within normal limits. SKIN: No significant ecchymosis, skin is noted to be warm. MUSCULOSKELETAL EXAM: No significant acute joint swelling noted. Results Laboratory Results: 09/29/17 06:59 09/30/17 04:49 09/30/17 04:49 Sodium 141.2 Potassium 4.4 D Chloride 98 Carbon Dioxide 28 Anion Gap 15 BUN 27 H Creatinine 1.38 H Est GFR ( Amer) 45 L Est GFR (Non-Af Amer) 37 L Glucose 119 H Calcium 9.3 09/28/17 10:57 Clean Catch Midstream Urine Culture - Final Mixed Urogenital Daphne 09/25/17 09/25/17 09/25/17 18:26 23:49 23:49 Creatine Kinase 36 CK-MB (CK-2) 1.29 1.05 Troponin I 0.916 0.827 NT-Pro-B Natriuret Pep 09/26/17 09/26/17 09/26/17 05:44 05:44 12:03 Creatine Kinase 37 35 CK-MB (CK-2) 1.24 Troponin I 1.050 NT-Pro-B Natriuret Pep 6300 H 09/26/17 09/26/17 09/26/17 12:03 17:45 17:45 Creatine Kinase 41 CK-MB (CK-2) 0.96 1.04 Troponin I 0.622 0.863 NT-Pro-B Natriuret Pep 09/26/17 09/26/17 09/27/17 23:50 23:50 04:39 Creatine Kinase 44 CK-MB (CK-2) 1.00 Troponin I 0.907 NT-Pro-B Natriuret Pep 4930 H 09/27/17 09/27/17 09/27/17 10:29 10:29 15:30 Creatine Kinase 36 37 CK-MB (CK-2) 0.97 Troponin I 0.535 NT-Pro-B Natriuret Pep 09/27/17 09/27/17 09/27/17 15:30 21:46 21:46 Creatine Kinase 38 CK-MB (CK-2) 0.86 0.96 Troponin I 0.575 0.471 NT-Pro-B Natriuret Pep 09/28/17 09/28/17 09/28/17 04:50 10:27 10:27 Creatine Kinase 33 CK-MB (CK-2) 0.94 Troponin I 0.576 NT-Pro-B Natriuret Pep 4780 H EKG Comments: Telemetry strips shows sinus rhythm without any sustained tachycardia or bradycardia. Impressions: Abdomen/Pelvis CT 09/27/17 00:00 IMPRESSION: NO ACUTE FINDINGS WITHIN THE CHEST, ABDOMEN, OR PELVIS. CORONARY ARTERY DISEASE. ENLARGED PULMONARY ARTERY TRUNK SUGGESTIVE OF PULMONARY ARTERY HYPERTENSION. CORRELATE WITH ECHOCARDIOGRAM. BILATERAL ADRENAL ADENOMAS. CORRELATE WITH BIOCHEMICAL MARKERS. ADDITIONAL CHRONIC CHANGES ABOVE. Chest CT 09/27/17 00:00 IMPRESSION: NO ACUTE FINDINGS WITHIN THE CHEST, ABDOMEN, OR PELVIS. CORONARY ARTERY DISEASE. ENLARGED PULMONARY ARTERY TRUNK SUGGESTIVE OF PULMONARY ARTERY HYPERTENSION. CORRELATE WITH ECHOCARDIOGRAM. BILATERAL ADRENAL ADENOMAS. CORRELATE WITH BIOCHEMICAL MARKERS. ADDITIONAL CHRONIC CHANGES ABOVE. Chest X-Ray 09/28/17 00:00 IMPRESSION: NO ACUTE RADIOGRAPHIC FINDING IN THE CHEST. Lung Scan-VQ NM 09/29/17 00:00 IMPRESSION: NORMAL VENTILATION-PERFUSION LUNG SCAN. NEGATIVE FOR PULMONARY EMBOLI. Assessment & Plan - Diagnosis (1) Non-ST elevated myocardial infarction Is this a current diagnosis for this admission?: Yes (2) CAD (coronary artery disease) Qualifiers: Coronary Disease-Associated Artery/Lesion type: [place] artery [place] vs. transplanted heart: [place] heart Associated angina: angina presence unspecified Qualified Code(s): I25.10 - Atherosclerotic heart disease of [place] coronary artery without angina pectoris Is this a current diagnosis for this admission?: Yes (3) Hyperlipemia Qualifiers: Hyperlipidemia type: other hyperlipidemia Qualified Code(s): E78.4 - Other hyperlipidemia Is this a current diagnosis for this admission?: Yes (4) Hypertension Qualifiers: Hypertension type: essential hypertension Qualified Code(s): I10 - Essential (primary) hypertension Is this a current diagnosis for this admission?: Yes (5) Type 2 diabetes mellitus Qualifiers: Diabetes mellitus detention insulin use: unspecified detention insulin use status Diabetes mellitus complication status: with unspecified complications Qualified Code(s): E11.8 - Type 2 diabetes mellitus with unspecified complications Is this a current diagnosis for this admission?: Yes (6) Depression Qualifiers: Depression Type: unspecified Qualified Code(s): F32.9 - Major depressive disorder, single episode, unspecified Is this a current diagnosis for this admission?: Yes (7) Chronic kidney disease (CKD) Qualifiers: Chronic kidney disease stage: stage 3 (moderate) Qualified Code(s): N18.3 - Chronic kidney disease, stage 3 (moderate) Is this a current diagnosis for this admission?: Yes (8) Pulmonary hypertension Is this a current diagnosis for this admission?: Yes - Notes Notes: Pulmonary hypertension: Enlarged pulmonary artery and finding of pulmonary hypertension on CT chest: Patient is obese and has risk factors for recurrent PE. VQ scan was therefore ordered and performed. Noted to be negative for PE. Hyperkalemia: Potassium was high yesterday today has normalized.. Chronic kidney disease: Patient seems to have chronic kidney disease. Avoid nonsteroidals and iodinated contrast agents. Non-ST segment elevation myocardial infarction: Patient ruled in by this by virtue of EKG changes and also positive enzyme. Patient to be treated with Lovenox aspirin, Plavix, statins, Ranexa, beta blockers, MICHAEL inhibitor/ARB. 2D echo results were reviewed. Patient to report any recurrence of chest pain. Patient to be scheduled for a stress testing tomorrow. Right now patient prefers medical management. Coronary artery disease: Please see management above. Patient does describe history of cardiac catheterization several years ago at [facility] during which she was noted to have some blockages not needing stents. Hyperlipidemia: Currently stable. Continue patient on Lipitor 40 mg p.o. nightly. Hypertension: Blood pressure goal is 140/90 or less. Avoid any hypotension or severe hypertension. Diabetes: Recommend good control of blood sugar. However should avoid any hypoglycemia and hyperglycemia. Patient being expertly managed by primary care M.D/hospitalist Dysthymia: Patient has history of anxiety depression. Recommend anxiolytics. Currently is started on anxiolytics. - Time Time with patient: Greater than 35 minutes - CODE STATUS was discussed, patient remains full code. Surrogate decision-maker unchanged. Multiple medical problems were addressed. More than 50% of the time spent coordinating care, discussing management plans with involved caregivers. Management plans discussed with involved personnels. Medical decision making was of moderate to high complexity, patient's has multiple comorbidities.
[2017-09-30] MEDS: POLYETHYLENE GLYCOL 3350 POWDER 17 GM/1 PACKET PO SCH (12:01)
[2017-09-30] MEDS: INSULIN LISPRO 100 UNIT/ML 3 ML VIAL SUBCUT PRN ×3 (12:01→21:55)
[2017-09-30] MEDS ORDERED: SIMETHICONE 80 MG TAB.CHEW PO PRN (19:58)
[2017-09-30] MEDS ORDERED: FLUTICASONE NASAL SPRAY 50 MCG/SPRY 120 SPRAY/16 GM NASL PRN (19:58)
[2017-09-30] MEDS: ATORVASTATIN CALCIUM 40 MG TABLET PO SCH (22:02)
[2017-10-01 05:05] LABS: ABSOLUTE EOSINOPHILS # (AUTO) 0.3 10^3/uL (0.0-0.6); BASOPHILS % (AUTO) 0.4 % (0-2); EOSINOPHILS % (AUTO) 4.2 % (0-6); HEMATOCRIT 31.9 % (36.0-47.0); HEMOGLOBIN 11.1 g/dL (12.0-15.5); LYMPHOCYTES % (AUTO) 13.5 % (13-45); MEAN CORPUSCULAR HEMOGLOBIN 30.5 pg (27.0-33.4); MEAN CORPUSCULAR HGB CONC 34.9 g/dL (32.0-36.0); MEAN CORPUSCULAR VOLUME 88 fl (80-97); MONOCYTES % (AUTO) 13.5 % (3-13); PLATELET COUNT 233 10^3/uL (150-450); RED BLOOD COUNT 3.64 10^6/uL (3.72-5.28); RED CELL DISTRIBUTION WIDTH 13.7 % (11.5-14.0); SEGMENTED NEUTROPHILS % (AUTO) 68.4 % (42-78); TOTAL CELLS COUNTED % (AUTO) 100 %; WHITE BLOOD COUNT 7.3 10^3/uL (4.0-10.5)
[2017-10-01 05:27] LABS: ANION GAP 13 (5-19); BLOOD UREA NITROGEN 20 mg/dL (7-20); CALCIUM 9.3 mg/dL (8.4-10.2); CARBON DIOXIDE 30 mmol/L (22-30); CHLORIDE 99 mmol/L (98-107); GLUCOSE 138 mg/dL (75-110); POTASSIUM 4.7 mmol/L (3.6-5.0); SODIUM 142.4 mmol/L (137-145)
[2017-10-01] MEDS: LEVOTHYROXINE SODIUM 0.1 MG TABLET PO SCH (05:56)
[2017-10-01] MEDS: HYDRALAZINE HCL 50 MG TABLET PO SCH ×3 (05:56→21:18)
[2017-10-01] MEDS: LEVOTHYROXINE SODIUM 0.025 MG TABLET PO SCH (05:56)
[2017-10-01] MEDS: ALPRAZOLAM 0.25 MG TABLET PO PRN ×2 (08:20→21:18)
[2017-10-01] MEDS: ACETAMINOPHEN 325 MG TABLET PO PRN (08:24)
--- NOTE | 2017-10-01 08:28 | PDOC PROGRESS REPORT ---
Subjective Progress Note for:: 10/01/17 Subjective:: Patient is currently doing fair Patient asking us to going home Denied any chest pain denied any abdominal pain no nausea no vomiting Patient scheduled for a stress test today Reason For Visit: NON ST [place] Physical Exam Vital Signs: Temp Pulse Resp BP Pulse Ox 97.8 F 84 18 135/62 H 90 L 10/01/17 03:00 10/01/17 03:00 10/01/17 03:00 10/01/17 03:00 10/01/17 03:00 Intake & Output 09/30/17 10/01/17 10/02/17 06:59 06:59 06:59 Intake Total 05083 540 Output Total 550 1650 Balance 9510 -1110 Weight 97.1 kg 96.5 kg General appearance: PRESENT: no acute distress, well-developed, well-nourished Head exam: PRESENT: atraumatic, normocephalic Eye exam: PRESENT: conjunctiva pink, EOMI, PERRLA. ABSENT: scleral icterus Ear exam: PRESENT: normal external ear exam Mouth exam: PRESENT: moist, tongue midline Neck exam: PRESENT: full ROM. ABSENT: carotid bruit, JVD, lymphadenopathy, thyromegaly Respiratory exam: PRESENT: clear to auscultation elena Cardiovascular exam: PRESENT: RRR. ABSENT: diastolic murmur, rubs, systolic murmur Pulses: PRESENT: normal dorsalis pedis pul, +2 pedal pulses bilateral Vascular exam: PRESENT: normal capillary refill GI/Abdominal exam: PRESENT: normal bowel sounds, soft. ABSENT: distended, guarding, mass, organolmegaly, rebound, tenderness Rectal exam: PRESENT: deferred Extremities exam: ABSENT: pedal edema Musculoskeletal exam: PRESENT: ambulatory Neurological exam: PRESENT: alert, awake, oriented to person, oriented to place , oriented to time, oriented to situation, CN II-XII grossly intact. ABSENT: motor sensory deficit Psychiatric exam: PRESENT: appropriate affect, normal mood. ABSENT: homicidal ideation, suicidal ideation Skin exam: PRESENT: dry, intact, warm. ABSENT: cyanosis, rash Results Laboratory Results: 10/01/17 04:17 10/01/17 04:17 10/01/17 10/01/17 04:17 04:17 WBC 7.3 RBC 3.64 L Hgb 11.1 L Hct 31.9 L MCV 88 MCH 30.5 MCHC 34.9 RDW 13.7 Plt Count 233 Seg Neutrophils % 68.4 Lymphocytes % 13.5 Monocytes % 13.5 H Eosinophils % 4.2 Basophils % 0.4 Absolute Neutrophils 5.0 Absolute Lymphocytes 1.0 Absolute Monocytes 1.0 Absolute Eosinophils 0.3 Absolute Basophils 0.0 Sodium 142.4 Potassium 4.7 Chloride 99 Carbon Dioxide 30 Anion Gap 13 BUN 20 Creatinine 1.16 Est GFR ( Amer) 54 L Est GFR (Non-Af Amer) 45 L Glucose 138 H Calcium 9.3 09/28/17 10:57 Clean Catch Midstream Urine Culture - Final Mixed Urogenital Daphne 09/25/17 09/25/17 09/25/17 18:26 23:49 23:49 Creatine Kinase 36 CK-MB (CK-2) 1.29 1.05 Troponin I 0.916 0.827 NT-Pro-B Natriuret Pep 09/26/17 09/26/17 09/26/17 05:44 05:44 12:03 Creatine Kinase 37 35 CK-MB (CK-2) 1.24 Troponin I 1.050 NT-Pro-B Natriuret Pep 6300 H 09/26/17 09/26/17 09/26/17 12:03 17:45 17:45 Creatine Kinase 41 CK-MB (CK-2) 0.96 1.04 Troponin I 0.622 0.863 NT-Pro-B Natriuret Pep 09/26/17 09/26/17 09/27/17 23:50 23:50 04:39 Creatine Kinase 44 CK-MB (CK-2) 1.00 Troponin I 0.907 NT-Pro-B Natriuret Pep 4930 H 09/27/17 09/27/17 09/27/17 10:29 10:29 15:30 Creatine Kinase 36 37 CK-MB (CK-2) 0.97 Troponin I 0.535 NT-Pro-B Natriuret Pep 09/27/17 09/27/17 09/27/17 15:30 21:46 21:46 Creatine Kinase 38 CK-MB (CK-2) 0.86 0.96 Troponin I 0.575 0.471 NT-Pro-B Natriuret Pep 09/28/17 09/28/17 09/28/17 04:50 10:27 10:27 Creatine Kinase 33 CK-MB (CK-2) 0.94 Troponin I 0.576 NT-Pro-B Natriuret Pep 4780 H Impressions: Abdomen/Pelvis CT 09/27/17 00:00 IMPRESSION: NO ACUTE FINDINGS WITHIN THE CHEST, ABDOMEN, OR PELVIS. CORONARY ARTERY DISEASE. ENLARGED PULMONARY ARTERY TRUNK SUGGESTIVE OF PULMONARY ARTERY HYPERTENSION. CORRELATE WITH ECHOCARDIOGRAM. BILATERAL ADRENAL ADENOMAS. CORRELATE WITH BIOCHEMICAL MARKERS. ADDITIONAL CHRONIC CHANGES ABOVE. Chest CT 09/27/17 00:00 IMPRESSION: NO ACUTE FINDINGS WITHIN THE CHEST, ABDOMEN, OR PELVIS. CORONARY ARTERY DISEASE. ENLARGED PULMONARY ARTERY TRUNK SUGGESTIVE OF PULMONARY ARTERY HYPERTENSION. CORRELATE WITH ECHOCARDIOGRAM. BILATERAL ADRENAL ADENOMAS. CORRELATE WITH BIOCHEMICAL MARKERS. ADDITIONAL CHRONIC CHANGES ABOVE. Chest X-Ray 09/28/17 00:00 IMPRESSION: NO ACUTE RADIOGRAPHIC FINDING IN THE CHEST. Lung Scan-VQ NM 09/29/17 00:00 IMPRESSION: NORMAL VENTILATION-PERFUSION LUNG SCAN. NEGATIVE FOR PULMONARY EMBOLI. Assessment & Plan - Diagnosis (1) Chest pain Qualifiers: Chest pain type: unspecified Qualified Code(s): R07.9 - Chest pain, unspecified Is this a current diagnosis for this admission?: Yes Plan: Currently all resolved (2) Non-ST elevated myocardial infarction Is this a current diagnosis for this admission?: Yes Plan: Currently follow with the cigarette filter inspector (3) CAD (coronary artery disease) Qualifiers: Coronary Disease-Associated Artery/Lesion type: [place] artery [place] vs. transplanted heart: [place] heart Associated angina: angina presence unspecified Qualified Code(s): I25.10 - Atherosclerotic heart disease of [place] coronary artery without angina pectoris Is this a current diagnosis for this admission?: Yes Plan: Continues follow with the cardiology (4) Type 2 diabetes mellitus Qualifiers: Diabetes mellitus residential insulin use: unspecified residential insulin use status Diabetes mellitus complication status: with unspecified complications Qualified Code(s): E11.8 - Type 2 diabetes mellitus with unspecified complications Is this a current diagnosis for this admission?: Yes Plan: Continues a sliding scale and current medication (5) Hypertension Qualifiers: Hypertension type: essential hypertension Qualified Code(s): I10 - Essential (primary) hypertension Is this a current diagnosis for this admission?: Yes Plan: Continues to restart on the p.o. medications (6) Hyperlipemia Qualifiers: Hyperlipidemia type: other hyperlipidemia Qualified Code(s): E78.4 - Other hyperlipidemia Is this a current diagnosis for this admission?: Yes Plan: Continues to statin (7) Depression Qualifiers: Depression Type: unspecified Qualified Code(s): F32.9 - Major depressive disorder, single episode, unspecified Is this a current diagnosis for this admission?: Yes (8) Abdominal pain Qualifiers: Abdominal location: right lower quadrant Qualified Code(s): R10.31 - Right lower quadrant pain Is this a current diagnosis for this admission?: Yes Plan: Currently all resolved - Time Time Spent with patient: 15-24 minutes Medications reviewed and adjusted accordingly: Yes Anticipated discharge: Home Within: within 24 hours - Inpatient Certification Medical Necessity: Need Close Monitoring Due to Risk of Patient Decompensation Post Hospital Care: D/C Clamshell Engineer Documentation - Plan Summary Plan Summary: Currently doing well waiting for the stress test
[2017-10-01] MEDS: GLIMEPIRIDE 1 MG TABLET PO SCH ×2 (11:14→18:47)
[2017-10-01] MEDS: CLOPIDOGREL BISULFATE 75 MG TABLET PO SCH (11:14)
[2017-10-01] MEDS: TRAMADOL HCL 50 MG TABLET PO SCH ×2 (11:18→21:18)
[2017-10-01] MEDS: RANOLAZINE 500 MG TAB.SR.12H PO SCH ×2 (11:19→21:18)
[2017-10-01] MEDS: METOPROLOL SUCCINATE 50 MG TAB.SR.24H PO SCH ×2 (11:19→21:17)
[2017-10-01] MEDS: POLYETHYLENE GLYCOL 3350 POWDER 17 GM/1 PACKET PO SCH (11:19)
[2017-10-01] MEDS: GABAPENTIN 100 MG CAPSULE PO SCH ×2 (11:19→21:18)
[2017-10-01] MEDS: SITAGLIPTIN PHOSPHATE 50 MG TABLET PO SCH (11:20)
[2017-10-01] MEDS: DOCUSATE SODIUM 100 MG CAPSULE PO SCH ×2 (11:20→18:47)
[2017-10-01] MEDS: PANTOPRAZOLE SODIUM 40 MG VIAL IV SCH ×2 (11:21→21:18)
[2017-10-01] MEDS: ENOXAPARIN SODIUM INJ 40 MG/0.4 ML DISP.SYRIN SUBCUT SCH (11:21)
[2017-10-01] MEDS: INSULIN LISPRO 100 UNIT/ML 3 ML VIAL SUBCUT PRN ×3 (12:37→21:19)
[2017-10-01] MEDS ORDERED: REGADENOSON INJ 0.4 MG/5 ML DISP.SYRIN IV ONE (18:55)
[2017-10-01] MEDS ORDERED: AMINOPHYLLINE INJ/PF 250 MG/10 ML SDV IV ONE (18:55)
--- NOTE | 2017-10-01 20:27 | PDOC PROGRESS REPORT ---
Subjective Progress Note for:: 10/01/17 Subjective:: Patient feels generally improved today however Patient today woke up with headaches. Pt is denying any chest arm or neck discomfort. Patient denying any PND, orthopnea. Patient denied any sustained palpitations, dizziness, syncope, near syncope. Patient denying any fever chills. Patient is maintaining sinus rhythm. Review of systems: Rest review of systems negative. Medications: Medications have been reviewed. Reason For Visit: NON ST MO Physical Exam Vital Signs: Temp Pulse Resp BP Pulse Ox 97.5 F 75 18 120/53 L 94 10/01/17 15:21 10/01/17 15:21 10/01/17 15:21 10/01/17 15:21 10/01/17 15:21 Intake & Output 09/30/17 10/01/17 10/02/17 06:59 06:59 06:59 Intake Total 46820 540 572 Output Total 550 1650 600 Balance 9510 -1110 -28 Weight 97.1 kg 96.5 kg Exam: GENERAL: well-nourished and in no acute distress. Alert and oriented x3 HEAD: Atraumatic, normocephalic. EYES: Pupils equal round and reactive to light, extraocular movements intact, sclera anicteric, conjunctiva are normal. ENT: TMs normal, nares patent, oropharynx clear without exudates. Moist mucous membranes. No oral ulcerations or bleeding gums noted NECK: supple without lymphadenopathy. Trachea is central. No cervical or axillary lymphadenopathy noted. Carotids are 2+, JVD WNL LUNGS: Respiration seems nonlabored, no significant accessory muscle action noted. Breath sounds clear to auscultation bilaterally and equal noted. No wheezes rales or rhonchi noted. No significant dullness noted on percussion. CHEST: Palpation of the chest wall shows no significant chest wall tenderness. 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 ABDOMEN: Soft, no significant tenderness appreciated, normoactive bowel sounds. No guarding, no rebound. No rigidity noted . No masses appreciated. EXTREMITIES: Pedal pulses are 1-2+, no calf tenderness noted. No clubbing or cyanosis. negative pedal edema noted NEUROLOGICAL: Focused neurological exam showed no significant neurologic deficit. Normal speech, no focal weakness appreciated. PSYCH: Normal mood, normal affect. Judgment and insight within normal limits. SKIN: No significant ecchymosis, skin is noted to be warm. MUSCULOSKELETAL EXAM: No significant acute joint swelling noted. Results Laboratory Results: 10/01/17 04:17 10/01/17 04:17 10/01/17 10/01/17 04:17 04:17 WBC 7.3 RBC 3.64 L Hgb 11.1 L Hct 31.9 L MCV 88 MCH 30.5 MCHC 34.9 RDW 13.7 Plt Count 233 Seg Neutrophils % 68.4 Lymphocytes % 13.5 Monocytes % 13.5 H Eosinophils % 4.2 Basophils % 0.4 Absolute Neutrophils 5.0 Absolute Lymphocytes 1.0 Absolute Monocytes 1.0 Absolute Eosinophils 0.3 Absolute Basophils 0.0 Sodium 142.4 Potassium 4.7 Chloride 99 Carbon Dioxide 30 Anion Gap 13 BUN 20 Creatinine 1.16 Est GFR ( Amer) 54 L Est GFR (Non-Af Amer) 45 L Glucose 138 H Calcium 9.3 09/25/17 09/25/17 09/25/17 18:26 23:49 23:49 Creatine Kinase 36 CK-MB (CK-2) 1.29 1.05 Troponin I 0.916 0.827 NT-Pro-B Natriuret Pep 09/26/17 09/26/17 09/26/17 05:44 05:44 12:03 Creatine Kinase 37 35 CK-MB (CK-2) 1.24 Troponin I 1.050 NT-Pro-B Natriuret Pep 6300 H 09/26/17 09/26/17 09/26/17 12:03 17:45 17:45 Creatine Kinase 41 CK-MB (CK-2) 0.96 1.04 Troponin I 0.622 0.863 NT-Pro-B Natriuret Pep 09/26/17 09/26/17 09/27/17 23:50 23:50 04:39 Creatine Kinase 44 CK-MB (CK-2) 1.00 Troponin I 0.907 NT-Pro-B Natriuret Pep 4930 H 09/27/17 09/27/17 09/27/17 10:29 10:29 15:30 Creatine Kinase 36 37 CK-MB (CK-2) 0.97 Troponin I 0.535 NT-Pro-B Natriuret Pep 09/27/17 09/27/17 09/27/17 15:30 21:46 21:46 Creatine Kinase 38 CK-MB (CK-2) 0.86 0.96 Troponin I 0.575 0.471 NT-Pro-B Natriuret Pep 09/28/17 09/28/17 09/28/17 04:50 10:27 10:27 Creatine Kinase 33 CK-MB (CK-2) 0.94 Troponin I 0.576 NT-Pro-B Natriuret Pep 4780 H Impressions: Abdomen/Pelvis CT 09/27/17 00:00 IMPRESSION: NO ACUTE FINDINGS WITHIN THE CHEST, ABDOMEN, OR PELVIS. CORONARY ARTERY DISEASE. ENLARGED PULMONARY ARTERY TRUNK SUGGESTIVE OF PULMONARY ARTERY HYPERTENSION. CORRELATE WITH ECHOCARDIOGRAM. BILATERAL ADRENAL ADENOMAS. CORRELATE WITH BIOCHEMICAL MARKERS. ADDITIONAL CHRONIC CHANGES ABOVE. Chest CT 09/27/17 00:00 IMPRESSION: NO ACUTE FINDINGS WITHIN THE CHEST, ABDOMEN, OR PELVIS. CORONARY ARTERY DISEASE. ENLARGED PULMONARY ARTERY TRUNK SUGGESTIVE OF PULMONARY ARTERY HYPERTENSION. CORRELATE WITH ECHOCARDIOGRAM. BILATERAL ADRENAL ADENOMAS. CORRELATE WITH BIOCHEMICAL MARKERS. ADDITIONAL CHRONIC CHANGES ABOVE. Chest X-Ray 09/28/17 00:00 IMPRESSION: NO ACUTE RADIOGRAPHIC FINDING IN THE CHEST. Lung Scan-VQ NM 09/29/17 00:00 IMPRESSION: NORMAL VENTILATION-PERFUSION LUNG SCAN. NEGATIVE FOR PULMONARY EMBOLI. Assessment & Plan - Diagnosis (1) Non-ST elevated myocardial infarction Is this a current diagnosis for this admission?: Yes (2) CAD (coronary artery disease) Qualifiers: Coronary Disease-Associated Artery/Lesion type: [place] artery [place] vs. transplanted heart: [place] heart Associated angina: angina presence unspecified Qualified Code(s): I25.10 - Atherosclerotic heart disease of [place] coronary artery without angina pectoris Is this a current diagnosis for this admission?: Yes (3) Hyperlipemia Qualifiers: Hyperlipidemia type: other hyperlipidemia Qualified Code(s): E78.4 - Other hyperlipidemia Is this a current diagnosis for this admission?: Yes (4) Hypertension Qualifiers: Hypertension type: essential hypertension Qualified Code(s): I10 - Essential (primary) hypertension Is this a current diagnosis for this admission?: Yes (5) Type 2 diabetes mellitus 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: unspecified intermediate insulin use status Diabetes mellitus complication status: with unspecified complications Qualified Code(s): E11.8 - Type 2 diabetes mellitus with unspecified complications Is this a current diagnosis for this admission?: Yes (6) Depression Qualifiers: Depression Type: unspecified Qualified Code(s): F32.9 - Major depressive disorder, single episode, unspecified Is this a current diagnosis for this admission?: Yes (7) Chronic kidney disease (CKD) Qualifiers: Chronic kidney disease stage: stage 3 (moderate) Qualified Code(s): N18.3 - Chronic kidney disease, stage 3 (moderate) Is this a current diagnosis for this admission?: Yes (8) Pulmonary hypertension Is this a current diagnosis for this admission?: Yes - Notes Notes: Nuclear stress test showed mainly a severe fixed defect involving the LV apex. Patient has significant comorbid diagnosis including chronic kidney disease and also has a dye allergy, and since patient has been relatively asymptomatic over the last several days on current regimen, it is felt that medical management will be satisfactory at this point. Patient's medical regimen reviewed and is noted to be very satisfactory. Non-ST segment elevation myocardial infarction: Patient ruled in by this by virtue of EKG changes and also positive enzyme. Stress test results reviewed with the patient. Patient seems to be on a good regimen and has been currently asymptomatic of chest pain for last several days on medical management. Coronary artery disease: Please see management above. Patient does describe history of cardiac catheterization several years ago at [facility] during which she was noted to have some blockages not needing stents. Hyperlipidemia: Currently stable. Continue patient on Lipitor 40 mg p.o. nightly. Hypertension: Blood pressure goal is 140/90 or less. Avoid any hypotension or severe hypertension. Diabetes: Recommend good control of blood sugar. However should avoid any hypoglycemia and hyperglycemia. Patient being expertly managed by primary care M.D/hospitalist Dysthymia: Patient has history of anxiety depression. Recommend anxiolytics. Currently is started on anxiolytics. Pulmonary hypertension: Patient most likely has obesity hypoventilation syndrome and may also have sleep apnea syndrome. Patient was encouraged to schedule a sleep study but she is quite reluctant to schedule any such study. - Time Time with patient: Greater than 35 minutes - Patient was seen multiple times. Total time exceeds 40 minutes. In the morning nuclear stress test procedure, risks benefits, alternatives were discussed. Patient seen during the stress test. Patient also seen after stress test when results were discussed with the patient in detail. Patient's questions were answered. Nuclear stress test results were discussed with the patient. Patient was informed that no definitive evidence of pharmacologic stress-induced ischemia noted. No definite fixed defects were noted. Patient informed that occasionally significant single vessel disease or balanced ischemia could be missed. However based on the current study results, would recommend aggressive risk factor modification and medical therapy. It may also be worthwhile to consider evaluation or empiric management of other causes of chest pain. Should no other cause be found and if persistent in having chest pain, then cardiac catheterization should be considered. Right now, recommendations are for aggressive risk factor modification and medical management. Medications reviewed and adjusted accordingly: Yes
[2017-10-01] MEDS: ATORVASTATIN CALCIUM 40 MG TABLET PO SCH (21:30)
[2017-10-01] MEDS: MAG HYDROX/AL HYDROX/SIMETH SUSP 30 ML UDCUP PO PRN (22:09)
[2017-10-02] MEDS: LEVOTHYROXINE SODIUM 0.025 MG TABLET PO SCH (06:19)
[2017-10-02] MEDS: HYDRALAZINE HCL 50 MG TABLET PO SCH (06:19)
[2017-10-02] MEDS: LEVOTHYROXINE SODIUM 0.1 MG TABLET PO SCH (06:19)
--- NOTE | 2017-10-02 09:36 | PDOC DISCHARGE SUMMARY ---
General - Admit/Disc Date/PCP Admission Date/Primary Care Provider: 09/25/17 18:10 VIC SHEN MD Discharge Date: 10/02/17 - Discharge Diagnosis (1) Chest pain Is this a current diagnosis for this admission?: Yes Summary: Currently all resolvedNon-ST MS (2) Non-ST elevated myocardial infarction Is this a current diagnosis for this admission?: Yes Summary: Patient's stress test suggest a fixed defect and discussed with the cardiology suggest to current medical management of the patient have any recurrent chest pain need a cardiac cath (3) CAD (coronary artery disease) Is this a current diagnosis for this admission?: Yes Summary: Continues aggressive medical management follow with the cardiology (4) Type 2 diabetes mellitus Is this a current diagnosis for this admission?: Yes Summary: His current medications (5) Hypertension Is this a current diagnosis for this admission?: Yes Summary: Currently all stable (6) Hyperlipemia Is this a current diagnosis for this admission?: Yes Summary: Continues to Lipitor (7) Depression Is this a current diagnosis for this admission?: Yes Summary: Currently stable (8) Abdominal pain Is this a current diagnosis for this admission?: Yes Summary: Currently all resolved continues to PPI 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 Meier - Additional Information Discharge Diet: Diabetic Discharge Activity: Activity As Tolerated Prescriptions: Hydralazine HCl [Apresoline 50 mg Tablet] 50 mg PO Q8 #90 tablet Metoprolol Succinate [Toprol Xl 50 mg Tab.sr] 50 mg PO Q12 #60 tab.sr.24h Omeprazole 40 mg PO DAILY #30 capsule. Ranolazine [Ranexa 500 mg Tab.sr] 1,000 mg PO Q12 #60 tab.sr.12h Simethicone [Mylicon 80 mg Chewable Tablet] 80 mg PO QIDP PRN #120 tab.chew PRN Reason: Home Medications: Alprazolam [Xanax 0.25 mg Tablet] 0.25 mg PO QHS 09/25/17 Clopidogrel Bisulfate [Plavix 75 mg Tablet] 75 mg PO DAILY 09/25/17 Gabapentin [Neurontin 100 mg Capsule] 100 mg PO Q12 09/25/17 Glimepiride [Amaryl 1 mg Tablet] 1 mg PO BID 09/25/17 Hydralazine HCl 100 mg PO Q8 09/25/17 Levothyroxine Sodium [Synthroid] 125 mcg PO DAILY 09/25/17 Metformin HCl [Glucophage] 1,000 mg PO BIDACBS 09/25/17 Ranitidine HCl [Zantac 150 mg Tablet] 150 mg PO BID 09/25/17 Sitagliptin Phosphate [Januvia 50 mg Tablet] 100 mg PO DAILY 09/25/17 Hydralazine HCl [Apresoline 50 mg Tablet] 50 mg PO Q8 #90 tablet 10/02/17 Metoprolol Succinate [Toprol Xl 50 mg Tab.sr] 50 mg PO Q12 #60 tab.sr.24h Omeprazole 40 mg PO DAILY #30 capsule.dr 10/02/17 Ranolazine [Ranexa 500 mg Tab.sr] 1,000 mg PO Q12 #60 tab.sr.12h 10/02/17 Simethicone [Mylicon 80 mg Chewable Tablet] 80 mg PO QIDP PRN #120 tab.chew Tramadol HCl [Ultram 50 mg Tablet] 50 mg PO Q12 PRN #30 10/02/17 History of Present Illness History of Present Illness: ARISTEO SIDDIQUI is a 82 year old female This is a 82-year-old female with the history of the type 2 diabetes mellitus history of the hypertension's hyperlipidemia havoc several cardiac cath in the past came to my office today with a complaining of chest pain in the joint pains started on the last Friday and getting better and a EKG was done in the office with so some EKG changes with T-wave inversion in anterolateral lead and some left bundle branch block that was new from the last EKG and a stat cardiac enzyme was orderedNeck cardiology was consult was ordered and the patient cardiac enzyme was elevated in the acute MS range and a cardiology send the patient's to the ER with patients pretty much denied any complaint and according to the ER physician patients do not want to go for tertiary center at this point for any cardiac cath in the as per discussed with the cardiology agreed to put the patient in the hospital Patient's recall memory was last cardiac cath was done in a week but hospital Patient is currently denied any chest pain denied any shortness of the breath with complaining some indigestions and some back problem Hospital Course Hospital Course: This is a 82-year-old female present in the office with a 3 days history of the chest pains and at this point patient was sent to the emergency department and a cardiac lab was done and positive for non-ST MS patients choose to not going for the cardiac cath and preferred to proceed for medical management Patient seen by the cardiology underwent for the echocardiogram was all stable patient also have a VQ scan which is negative for any PE Also have a some abdominal pain issue which underwent for the CT abdomen pelvis was also negative CT of the chest was also negative for any acute finding Patient was put on a PPI and the response very well Patient underwent for the stress test and we so some fixed 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 intake is good patients did a physical therapy and walk around without any problems patient EKG is all stable and patient's currently maximized hospital benefit and the patient's medications are adjusted Very extensive discussions with the patient's and the daughter Mary regarding the patient's current condition and her test reports and the follow-up and also discussed coordinate care with the cardiology and okay to discharge home Physical Exam Vital Signs: Temp Pulse Resp BP Pulse Ox 98.4 F 79 18 144/63 H 91 L 10/02/17 08:41 10/02/17 08:41 10/02/17 08:41 10/02/17 08:41 10/02/17 08:41 Intake & Output 10/01/17 10/02/17 10/03/17 06:59 06:59 06:59 Intake Total 540 1012 Output Total 1650 1675 Balance -1110 -663 Weight 96.5 kg 94 kg General appearance: PRESENT: no acute distress, well-developed, well-nourished Head exam: PRESENT: atraumatic, normocephalic Eye exam: PRESENT: conjunctiva pink, EOMI, PERRLA. ABSENT: scleral icterus Ear exam: PRESENT: normal external ear exam Mouth exam: PRESENT: moist, tongue midline Neck exam: PRESENT: full ROM. ABSENT: carotid bruit, JVD, lymphadenopathy, thyromegaly Respiratory exam: PRESENT: clear to auscultation elena Cardiovascular exam: PRESENT: RRR. ABSENT: diastolic murmur, rubs, systolic murmur Pulses: PRESENT: normal dorsalis pedis pul, +2 pedal pulses bilateral Vascular exam: PRESENT: normal capillary refill GI/Abdominal exam: PRESENT: normal bowel sounds, soft. ABSENT: distended, guarding, mass, organolmegaly, rebound, tenderness Rectal exam: PRESENT: deferred Extremities exam: ABSENT: pedal edema Musculoskeletal exam: PRESENT: ambulatory Neurological exam: PRESENT: alert, awake, oriented to person, oriented to place , oriented to time, oriented to situation, CN II-XII grossly intact. ABSENT: motor sensory deficit Psychiatric exam: PRESENT: appropriate affect, normal mood. ABSENT: homicidal ideation, suicidal ideation Skin exam: PRESENT: dry, intact, warm. ABSENT: cyanosis, rash Results Laboratory Results: 10/01/17 04:17 10/01/17 04:17 09/25/17 09/25/17 09/25/17 18:26 23:49 23:49 Creatine Kinase 36 CK-MB (CK-2) 1.29 1.05 Troponin I 0.916 0.827 NT-Pro-B Natriuret Pep 09/26/17 09/26/17 09/26/17 05:44 05:44 12:03 Creatine Kinase 37 35 CK-MB (CK-2) 1.24 Troponin I 1.050 NT-Pro-B Natriuret Pep 6300 H 09/26/17 09/26/17 09/26/17 12:03 17:45 17:45 Creatine Kinase 41 CK-MB (CK-2) 0.96 1.04 Troponin I 0.622 0.863 NT-Pro-B Natriuret Pep 09/26/17 09/26/17 09/27/17 23:50 23:50 04:39 Creatine Kinase 44 CK-MB (CK-2) 1.00 Troponin I 0.907 NT-Pro-B Natriuret Pep 4930 H 09/27/17 09/27/17 09/27/17 10:29 10:29 15:30 Creatine Kinase 36 37 CK-MB (CK-2) 0.97 Troponin I 0.535 NT-Pro-B Natriuret Pep 09/27/17 09/27/17 09/27/17 15:30 21:46 21:46 Creatine Kinase 38 CK-MB (CK-2) 0.86 0.96 Troponin I 0.575 0.471 NT-Pro-B Natriuret Pep 09/28/17 09/28/17 09/28/17 04:50 10:27 10:27 Creatine Kinase 33 CK-MB (CK-2) 0.94 Troponin I 0.576 NT-Pro-B Natriuret Pep 4780 H Impressions: Abdomen/Pelvis CT 09/27/17 00:00 IMPRESSION: NO ACUTE FINDINGS WITHIN THE CHEST, ABDOMEN, OR PELVIS. CORONARY ARTERY DISEASE. ENLARGED PULMONARY ARTERY TRUNK SUGGESTIVE OF PULMONARY ARTERY HYPERTENSION. CORRELATE WITH ECHOCARDIOGRAM. BILATERAL ADRENAL ADENOMAS. CORRELATE WITH BIOCHEMICAL MARKERS. ADDITIONAL CHRONIC CHANGES ABOVE. Chest CT 09/27/17 00:00 IMPRESSION: NO ACUTE FINDINGS WITHIN THE CHEST, ABDOMEN, OR PELVIS. CORONARY ARTERY DISEASE. ENLARGED PULMONARY ARTERY TRUNK SUGGESTIVE OF PULMONARY ARTERY HYPERTENSION. CORRELATE WITH ECHOCARDIOGRAM. BILATERAL ADRENAL ADENOMAS. CORRELATE WITH BIOCHEMICAL MARKERS. ADDITIONAL CHRONIC CHANGES ABOVE. Chest X-Ray 09/28/17 00:00 IMPRESSION: NO ACUTE RADIOGRAPHIC FINDING IN THE CHEST. Lung Scan-VQ NM 09/29/17 00:00 IMPRESSION: NORMAL VENTILATION-PERFUSION LUNG SCAN. NEGATIVE FOR PULMONARY EMBOLI. Qualifiers - * PATIENT BEING DISCHARGED WITH ANY OF THE FOLLOWING DIAGNOSIS: MS VTE patient discharged on overlapping Therapy?: Yes MS Pt being discharged on Aspirin therapy?: Yes MS Pt being discharged on Statins?: Yes MS Pt discharged ACEI/ARBS?: Yes HF Pt being discharged on ACEI for LVEF less than 40%?: No Reason(s) for not prescribing ACEI:: Not indicated HF Pt being discharged on ARBS for LVEF less than 40%?: Yes HF Pt with Afib discharged with Warfarin?: No Reason(s) for not prescribing Warfarin:: Not indicated HF Pt discharged on evidence-based Beta Gabriele:: Yes Plan Time Spent: Greater than 30 Minutes - Patients following office 1 week repeat the Chem-7 follow with the cardiology
[2017-10-02 10:19] VITALS: BP 130/64
[2017-10-02] MEDS: TRAMADOL HCL 50 MG TABLET PO SCH (10:27)
[2017-10-02] MEDS: PANTOPRAZOLE SODIUM 40 MG VIAL IV SCH (10:27)
[2017-10-02] MEDS: GABAPENTIN 100 MG CAPSULE PO SCH (10:28)
[2017-10-02] MEDS: METOPROLOL SUCCINATE 50 MG TAB.SR.24H PO SCH (10:28)
[2017-10-02] MEDS: RANOLAZINE 500 MG TAB.SR.12H PO SCH (10:28)
[2017-10-02] MEDS: ENOXAPARIN SODIUM INJ 40 MG/0.4 ML DISP.SYRIN SUBCUT SCH (10:29)
[2017-10-02] MEDS: SITAGLIPTIN PHOSPHATE 50 MG TABLET PO SCH (10:29)
[2017-10-02] MEDS: CLOPIDOGREL BISULFATE 75 MG TABLET PO SCH (10:29)
[2017-10-02] MEDS: GLIMEPIRIDE 1 MG TABLET PO SCH (10:29)
[2017-10-02] MEDS: DOCUSATE SODIUM 100 MG CAPSULE PO SCH (10:29)
[2017-10-02] MEDS: POLYETHYLENE GLYCOL 3350 POWDER 17 GM/1 PACKET PO SCH (11:41)
--- NOTE | 2017-10-02 19:42 | PDOC PROGRESS REPORT ---
Subjective Progress Note for:: 10/02/17 Subjective:: Patient feels generally improved today however Patient today woke up with headaches. Pt is denying any chest arm or neck discomfort. Patient denying any PND, orthopnea. Patient denied any sustained palpitations, dizziness, syncope, near syncope. Patient denying any fever chills. Patient is maintaining sinus rhythm. Review of systems: Rest review of systems negative. Medications: Medications have been reviewed. Reason For Visit: NON ST MS Physical Exam Vital Signs: Temp Pulse Resp BP Pulse Ox 98.4 F 79 18 130/64 H 91 L 10/02/17 10:17 10/02/17 10:17 10/02/17 10:17 10/02/17 10:17 10/02/17 10:17 Intake & Output 10/01/17 10/02/17 10/03/17 06:59 06:59 06:59 Intake Total 540 1012 Output Total 1650 1675 Balance -1110 -663 Weight 96.5 kg 94 kg Exam: GENERAL: well-nourished and in no acute distress. Alert and oriented x3 HEAD: Atraumatic, normocephalic. EYES: Pupils equal round and reactive to light, extraocular movements intact, sclera anicteric, conjunctiva are normal. ENT: TMs normal, nares patent, oropharynx clear without exudates. Moist mucous membranes. No oral ulcerations or bleeding gums noted NECK: supple without lymphadenopathy. Trachea is central. No cervical or axillary lymphadenopathy noted. Carotids are 2+, JVD WNL LUNGS: Respiration seems nonlabored, no significant accessory muscle action noted. Breath sounds clear to auscultation bilaterally and equal noted. No wheezes rales or rhonchi noted. No significant dullness noted on percussion. CHEST: Palpation of the chest wall shows no significant chest wall tenderness. 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 ABDOMEN: Soft, no significant tenderness appreciated, normoactive bowel sounds. No guarding, no rebound. No rigidity noted . No masses appreciated. EXTREMITIES: Pedal pulses are 1-2+, no calf tenderness noted. No clubbing or cyanosis. negative pedal edema noted NEUROLOGICAL: Focused neurological exam showed no significant neurologic deficit. Normal speech, no focal weakness appreciated. PSYCH: Normal mood, normal affect. Judgment and insight within normal limits. SKIN: No significant ecchymosis, skin is noted to be warm. MUSCULOSKELETAL EXAM: No significant acute joint swelling noted. Results Laboratory Results: 10/01/17 04:17 10/01/17 04:17 09/25/17 09/25/17 09/25/17 18:26 23:49 23:49 Creatine Kinase 36 CK-MB (CK-2) 1.29 1.05 Troponin I 0.916 0.827 NT-Pro-B Natriuret Pep 09/26/17 09/26/17 09/26/17 05:44 05:44 12:03 Creatine Kinase 37 35 CK-MB (CK-2) 1.24 Troponin I 1.050 NT-Pro-B Natriuret Pep 6300 H 09/26/17 09/26/17 09/26/17 12:03 17:45 17:45 Creatine Kinase 41 CK-MB (CK-2) 0.96 1.04 Troponin I 0.622 0.863 NT-Pro-B Natriuret Pep 09/26/17 09/26/17 09/27/17 23:50 23:50 04:39 Creatine Kinase 44 CK-MB (CK-2) 1.00 Troponin I 0.907 NT-Pro-B Natriuret Pep 4930 H 09/27/17 09/27/17 09/27/17 10:29 10:29 15:30 Creatine Kinase 36 37 CK-MB (CK-2) 0.97 Troponin I 0.535 NT-Pro-B Natriuret Pep 09/27/17 09/27/17 09/27/17 15:30 21:46 21:46 Creatine Kinase 38 CK-MB (CK-2) 0.86 0.96 Troponin I 0.575 0.471 NT-Pro-B Natriuret Pep 09/28/17 09/28/17 09/28/17 04:50 10:27 10:27 Creatine Kinase 33 CK-MB (CK-2) 0.94 Troponin I 0.576 NT-Pro-B Natriuret Pep 4780 H EKG Comments: Telemetry strip shows sinus rhythm without any sustained tachycardia or bradycardia. Impressions: Abdomen/Pelvis CT 09/27/17 00:00 IMPRESSION: NO ACUTE FINDINGS WITHIN THE CHEST, ABDOMEN, OR PELVIS. CORONARY ARTERY DISEASE. ENLARGED PULMONARY ARTERY TRUNK SUGGESTIVE OF PULMONARY ARTERY HYPERTENSION. CORRELATE WITH ECHOCARDIOGRAM. BILATERAL ADRENAL ADENOMAS. CORRELATE WITH BIOCHEMICAL MARKERS. ADDITIONAL CHRONIC CHANGES ABOVE. Chest CT 09/27/17 00:00 IMPRESSION: NO ACUTE FINDINGS WITHIN THE CHEST, ABDOMEN, OR PELVIS. CORONARY ARTERY DISEASE. ENLARGED PULMONARY ARTERY TRUNK SUGGESTIVE OF PULMONARY ARTERY HYPERTENSION. CORRELATE WITH ECHOCARDIOGRAM. BILATERAL ADRENAL ADENOMAS. CORRELATE WITH BIOCHEMICAL MARKERS. ADDITIONAL CHRONIC CHANGES ABOVE. Chest X-Ray 09/28/17 00:00 IMPRESSION: NO ACUTE RADIOGRAPHIC FINDING IN THE CHEST. Lung Scan-VQ NM 09/29/17 00:00 IMPRESSION: NORMAL VENTILATION-PERFUSION LUNG SCAN. NEGATIVE FOR PULMONARY EMBOLI. Assessment & Plan - Diagnosis (1) Non-ST elevated myocardial infarction Is this a current diagnosis for this admission?: Yes (2) CAD (coronary artery disease) Qualifiers: Coronary Disease-Associated Artery/Lesion type: [place] artery [place] vs. transplanted heart: [place] heart Associated angina: angina presence unspecified Qualified Code(s): I25.10 - Atherosclerotic heart disease of [place] coronary artery without angina pectoris Is this a current diagnosis for this admission?: Yes (3) Hyperlipemia Qualifiers: Hyperlipidemia type: other hyperlipidemia Qualified Code(s): E78.4 - Other hyperlipidemia Is this a current diagnosis for this admission?: Yes (4) Hypertension Qualifiers: Hypertension type: essential hypertension Qualified Code(s): I10 - Essential (primary) hypertension Is this a current diagnosis for this admission?: Yes (5) Type 2 diabetes mellitus Qualifiers: Diabetes mellitus senior living insulin use: unspecified long term care pharmacist insulin use status Diabetes mellitus complication status: with unspecified complications Qualified Code(s): E11.8 - Type 2 diabetes mellitus with unspecified complications Is this a current diagnosis for this admission?: Yes (6) Depression Qualifiers: Depression Type: unspecified Qualified Code(s): F32.9 - Major depressive disorder, single episode, unspecified Is this a current diagnosis for this admission?: Yes (7) Chronic kidney disease (CKD) Qualifiers: Chronic kidney disease stage: stage 3 (moderate) Qualified Code(s): N18.3 - Chronic kidney disease, stage 3 (moderate) Is this a current diagnosis for this admission?: Yes (8) Pulmonary hypertension Is this a current diagnosis for this admission?: Yes - Notes Notes: Prescriptions given of Ranexa 1000 mg p.o. twice daily Non-ST segment elevation myocardial infarction: Patient ruled in by this by virtue of EKG changes and also positive enzyme. Patient has done well on medical management. Patient seems to be on a very good regimen. Patient informed that should she have recurrent chest pain in spite of good medical regimen then heart catheterization may need to be considered. At her age however given her chronic kidney disease, also allergy to IV contrast dye, threshold for pursuing heart catheterization will be somewhat on high side. Coronary artery disease: Please see management above. Patient does describe history of cardiac catheterization several years ago at [facility] during which she was noted to have some blockages not needing stents. Hyperlipidemia: Currently stable. Continue patient on Lipitor 40 mg p.o. nightly. Hypertension: Blood pressure goal is 140/90 or less. Avoid any hypotension or severe hypertension. Diabetes: Recommend good control of blood sugar. However should avoid any hypoglycemia and hyperglycemia. Patient being expertly managed by primary care M.D/hospitalist Dysthymia: Patient has history of anxiety depression. Recommend anxiolytics. Currently is started on anxiolytics. Pulmonary hypertension: Manifested by enlarged pulmonary artery. Patient has been encouraged to lose weight, I schedule a sleep study or at least a nocturnal oximetry as an outpatient. - Time Time with patient: Greater than 35 minutes - All cardiac evaluations were reviewed with the patient. More than 50% of the time spent coordinating care, discussing management plans with involved caregivers. Management plans discussed with involved personnels. Medical decision making was of moderate to high complexity, patient's has multiple comorbidities. Medications reviewed and adjusted accordingly: Yes
== END 2017-10-02 11:53 | disposition home health service (06) | DRG 282 ==
LOC: ER 15:10 → EH 18:10 → UNDOADMOB 18:10 → OBSVTOIN 18:10 → 3N 19:55
PROVIDERS: ADMIT Family Medicine; ATTEND Family Medicine
DX: I21.4 Non-ST elevation (NSTEMI) myocardial infarction (principal); I27.20 Pulmonary hypertension, unspecified; I12.9 Hypertensive chronic kidney disease with stage 1 through stage 4 chronic kidney disease, or unspecified chronic kidney disease; E87.5 Hyperkalemia; N18.3 Chronic kidney disease, stage 3 (moderate); F32.9 Major depressive disorder, single episode, unspecified; R10.31 Right lower quadrant pain; E66.9 Obesity, unspecified; E11.22 Type 2 diabetes mellitus with diabetic chronic kidney disease; I25.10 Atherosclerotic heart disease of native coronary artery without angina pectoris; M19.90 Unspecified osteoarthritis, unspecified site; E78.5 Hyperlipidemia, unspecified; Z88.2 Allergy status to sulfonamides; Z88.5 Allergy status to narcotic agent; Z88.8 Allergy status to other drugs, medicaments and biological substances; Z88.6 Allergy status to analgesic agent; Z87.891 Personal history of nicotine dependence; Z90.49 Acquired absence of other specified parts of digestive tract; Z90.710 Acquired absence of both cervix and uterus; Z86.73 Personal history of transient ischemic attack (TIA), and cerebral infarction without residual deficits; Z79.84 Long term (current) use of oral hypoglycemic drugs; Z79.899 Other long term (current) drug therapy; Z91.013 Allergy to seafood
CPT/HCPCS: 36415; 71045; 71046; 71250; 74176; 78452; 78582; 80048; 80053; 80076; 81001; 82550; 82553; 82962; 83690; 83735; 83880; 84484; 85025; 85027; 87086; 93005; 93010; 93017; 93306; 99285; A9500; A9540; A9567; J0280; J1650; J1815; J2785; J3490; Q9969; S0164

== ENCOUNTER → 2017-09-25 | Outpatient (CLI) | payer MEDICARE, MEDICAID ==
[2017-09-25 14:01] LABS: ABSOLUTE EOSINOPHILS # (AUTO) 0.3 10^3/uL (0.0-0.6); ABSOLUTE LYMPHOCYTES (AUTO) 1.2 10^3/uL (0.5-4.7); ABSOLUTE MONOCYTES (AUTO) 0.6 10^3/uL (0.1-1.4); ABSOLUTE NEUT (AUTO) 7.3 10^3/uL (1.7-8.2); BASOPHILS % (AUTO) 0.3 % (0-2); EOSINOPHILS % (AUTO) 2.8 % (0-6); HEMATOCRIT 38.4 % (36.0-47.0); HEMOGLOBIN 13.2 g/dL (12.0-15.5); LYMPHOCYTES % (AUTO) 13.1 % (13-45); MEAN CORPUSCULAR HEMOGLOBIN 30.4 pg (27.0-33.4); MEAN CORPUSCULAR HGB CONC 34.4 g/dL (32.0-36.0); MEAN CORPUSCULAR VOLUME 89 fl (80-97); MONOCYTES % (AUTO) 6.3 % (3-13); PLATELET COUNT 311 10^3/uL (150-450); RED BLOOD COUNT 4.34 10^6/uL (3.72-5.28); RED CELL DISTRIBUTION WIDTH 13.6 % (11.5-14.0); SEGMENTED NEUTROPHILS % (AUTO) 77.5 % (42-78); TOTAL CELLS COUNTED % (AUTO) 100 %; WHITE BLOOD COUNT 9.5 10^3/uL (4.0-10.5)
[2017-09-25 14:24] LABS: ALANINE AMINOTRANSFERASE 25 U/L (9-52); ALBUMIN 4.5 g/dL (3.5-5.0); ALKALINE PHOSPHATASE 71 U/L (38-126); ANION GAP 15 (5-19); ASPARTATE AMINO TRANSFERASE 31 U/L (14-36); BILIRUBIN,DIRECT 0.3 mg/dL (0.0-0.4); BILIRUBIN,TOTAL 0.4 mg/dL (0.2-1.3); BLOOD UREA NITROGEN 17 mg/dL (7-20); CARBON DIOXIDE 26 mmol/L (22-30); CHLORIDE 102 mmol/L (98-107); CREATINE KINASE 34 U/L (30-135); GLUCOSE 205 mg/dL (75-110); POTASSIUM 5.2 mmol/L (3.6-5.0); SODIUM 143.3 mmol/L (137-145); TOTAL PROTEIN 7.2 g/dL (6.3-8.2)
[2017-09-25 14:34] LABS: CREATINE KINASE MB 1.26 ng/mL (<4.55)
[2017-09-25 14:42] LABS: TROPONIN I 0.8 ng/mL
== END ==
LOC: OD 13:23
PROVIDERS: ATTEND Physician Assistant
DX: R07.9 Chest pain, unspecified (principal)
CPT/HCPCS: 36415; 80053; 82550; 82553; 84484; 85025

== ENCOUNTER 2017-10-11 06:04 | Emergency (ER) | payer MEDICARE, MEDICAID ==
[2017-10-11] MEDS ORDERED: ASPIRIN 81 MG TABLET, CHEWABLE PO ONE (06:36)
--- NOTE | 2017-10-11 06:37 | ER Document Report ---
ED General - General Chief Complaint: Breathing Difficulty Stated Complaint: DIFFICULTY BREATHING Time Seen by Provider: 10/11/17 06:34 Notes: 82-year-old female to the emergency department chief complaint of shortness of breath. Patient was recently hospitalized. Had a non-ST segment elevation VT. Elevated troponin. Positive stress test. Subsequently was discharged. Over the last 3 days has had increasing shortness of breath. States that it was relieved initially with Xanax but now getting worse. Intermittent cough. Denies any chest pain, nausea or shoulder pain. TRAVEL OUTSIDE OF THE [place] IN LAST 30 DAYS: No - HPI Onset: Last week Quality of pain: No pain Pain Level: Denies Associated symptoms: Shortness of breath - Related Data Allergies/Adverse Reactions: iodine [Iodine] Allergy (Severe, Verified 09/25/17 20:46) Difficulty breathing morphine [Morphine] Allergy (Severe, Verified 09/25/17 20:46) Generalized Itching oxycodone HCl [From Percocet] Allergy (Severe, Verified 09/25/17 20:46) Hallucinations prednisone [Prednisone] Allergy (Severe, Verified 09/25/17 20:46) Hallucinations Sulfa (Sulfonamide Antibiotics) Allergy (Severe, Verified 09/25/17 20:46) itch/hives codeine [Codeine] Allergy (Unknown, Verified 09/25/17 20:46) ? reaction Scovjjo-Puy-Qvl Reductase Inhibitor Adverse Reaction (Verified 09/26/17 04:43) seafood Allergy (Severe, Uncoded 09/25/17 20:46) Difficulty breathing Past Medical History - General Information source: Patient - Social History Smoking Status: Former Smoker Cigarette use (# per day): No Chew tobacco use (# tins/day): No Frequency of alcohol use: None Drug Abuse: None Lives with: Alone Family History: Reviewed & Not Pertinent Patient has suicidal ideation: No Patient has homicidal ideation: No - Past Medical History Cardiac Medical History: Reports: Hx Coronary Artery Disease - minor vessels closed, Hx Hypercholesterolemia, Hx Hypertension - meds x yrs Pulmonary Medical History: Reports: Hx Bronchitis, Hx COPD, Hx Pneumonia - as child/cellulitis from pneumonia vaccine Neurological Medical History: Reports: Hx Seizures Endocrine Medical History: Reports: Hx Diabetes Mellitus Type 2 Renal/ Medical History: Denies: Hx Peritoneal Dialysis Musculoskeltal Medical History: Reports Hx Arthritis Psychiatric Medical History: Reports: Hx Depression - anxiety Past Surgical History: Reports: Hx Cholecystectomy, Hx Hysterectomy - Immunizations Hx Diphtheria, Pertussis, Tetanus Vaccination: Yes Hx Pneumococcal Vaccination: 06/09/09 Review of Systems - Review of Systems Constitutional: No symptoms reported EENT: No symptoms reported. denies: Blurred vision, Double vision Cardiovascular: Edema. denies: Chest pain, Palpitations, Heart racing Respiratory: Cough, Short of breath, Wheezing Gastrointestinal: No symptoms reported Genitourinary: No symptoms reported Female Genitourinary: No symptoms reported Musculoskeletal: No symptoms reported Skin: No symptoms reported Hematologic/Lymphatic: No symptoms reported Neurological/Psychological: No symptoms reported Physical Exam - Vital signs Vitals: Temp Resp BP Pulse Ox 97.9 F 23 H 176/76 H 93 10/11/17 06:16 10/11/17 06:16 10/11/17 06:16 10/11/17 06:16 Interpretation: Normal - General General appearance: Appears well, Alert - HEENT Head: Normocephalic, Atraumatic Eyes: Normal Pupils: PERRL - Respiratory Respiratory status: No respiratory distress Chest status: Nontender Breath sounds: Normal Chest palpation: Normal - Cardiovascular Rhythm: Regular Heart sounds: Normal auscultation Murmur: No - Abdominal Inspection: Normal Distension: No distension Bowel sounds: Normal Tenderness: Nontender Organomegaly: No organomegaly - Back Back: Normal, Nontender - Extremities General upper extremity: Normal inspection, Nontender, Normal color, Normal ROM , Normal temperature General lower extremity: Normal inspection, Nontender, Edema, Normal color, Normal ROM, Normal temperature, Normal weight bearing. No: Rosy's sign - Neurological Neuro grossly intact: Yes Cognition: Normal Orientation: AAOx4 Vanessa Coma Scale Eye Opening: Spontaneous Vanessa Coma Scale Verbal: Oriented [place]essa Coma Scale Motor: Obeys Commands [place] Coma Scale Total: 15 Speech: Normal Motor strength normal: LUE, RUE, LLE, RLE Sensory: Normal - Psychological Associated symptoms: Normal affect, Normal mood - Skin Skin Temperature: Warm Skin Moisture: Dry Skin Color: Normal Course - Re-evaluation Re-evalutation: 10/11/17 08:13 At this time patient is chest pain-free. EKG was reviewed. Appears to have slight change from prior. Questionable left bundle branch on previous EKG and definitely has a left bundle branch at this time. No obvious ST elevation. Cardiac troponin of 1.0. Consulted with [facility]. Based on the symptoms that she has been having for several days and the fact that she had a recent end STEMI and a positive stress test he recommends transfer to the facility were patient can receive catheterization. Patient agrees to transfer. Request to be transferred to [facility] in [place]. Waiting callback from transfer center. 10/11/17 09:23 Solid State Tester has seen the patient. Spoke with Dr. Hardy at [facility]. Will transfer at this time as soon as bed is available. On heparin drip. Plavix and aspirin given. 10/11/17 09:24 Laboratory 10/11/17 10/11/17 10/11/17 05:40 05:40 05:40 WBC 10.5 RBC 4.14 Hgb 12.4 Hct 36.4 MCV 88 MCH 30.0 MCHC 34.2 RDW 14.1 H Plt Count 348 Seg Neutrophils % 78.4 H Lymphocytes % 11.8 L Monocytes % 6.9 Eosinophils % 2.7 Basophils % 0.2 Absolute Neutrophils 8.2 Absolute Lymphocytes 1.2 Absolute Monocytes 0.7 Absolute Eosinophils 0.3 Absolute Basophils 0.0 PT INR APTT Sodium 142.5 Potassium 4.9 Chloride 103 Carbon Dioxide 27 Anion Gap 13 BUN 21 H Creatinine 1.11 Est GFR ( Amer) 57 L Est GFR (Non-Af Amer) 47 L Glucose 142 H Calcium 10.2 Total Bilirubin 0.7 Direct Bilirubin 0.5 H Neonat Total Bilirubin Not Reportable Neonat Direct Bilirubin Not Reportable Neonat Indirect Bili Not Reportable AST 23 ALT 18 Alkaline Phosphatase 77 Creatine Kinase 34 CK-MB (CK-2) 1.25 Troponin I 1.100 NT-Pro-B Natriuret Pep 32543 H Total Protein 8.2 Albumin 4.5 10/11/17 05:40 WBC RBC Hgb Hct MCV MCH MCHC RDW Plt Count Seg Neutrophils % Lymphocytes % Monocytes % Eosinophils % Basophils % Absolute Neutrophils Absolute Lymphocytes Absolute Monocytes Absolute Eosinophils Absolute Basophils PT 14.2 INR 1.05 APTT 49.8 H Sodium Potassium Chloride Carbon Dioxide Anion Gap BUN Creatinine Est GFR ( Amer) Est GFR (Non-Af Amer) Glucose Calcium Total Bilirubin Direct Bilirubin Neonat Total Bilirubin Neonat Direct Bilirubin Neonat Indirect Bili AST ALT Alkaline Phosphatase Creatine Kinase CK-MB (CK-2) Troponin I NT-Pro-B Natriuret Pep Total Protein Albumin Chest X-Ray 10/11/17 06:36 IMPRESSION: NO ACUTE RADIOGRAPHIC FINDING IN THE CHEST. NO SIGNIFICANT CHANGE FROM PRIOR STUDY. 10/11/17 10:55 Patient has been reevaluated. Remained stable for transport at this time. - Vital Signs Vital signs: Temp Pulse Resp BP Pulse Ox 97.9 F 18 128/64 H 97 10/11/17 06:16 10/11/17 10:32 10/11/17 10:32 10/11/17 10:32 - Laboratory Result Diagrams: 10/11/17 05:40 10/11/17 05:40 Laboratory results interpreted by me: 10/11/17 10/11/17 10/11/17 05:40 05:40 05:40 RDW 14.1 H Seg Neutrophils % 78.4 H Lymphocytes % 11.8 L APTT BUN 21 H Est GFR ( Amer) 57 L Est GFR (Non-Af Amer) 47 L Glucose 142 H Direct Bilirubin 0.5 H NT-Pro-B Natriuret Pep 98510 H 10/11/17 05:40 RDW Seg Neutrophils % Lymphocytes % APTT 49.8 H BUN Est GFR ( Amer) Est GFR (Non-Af Amer) Glucose Direct Bilirubin NT-Pro-B Natriuret Pep - EKG Interpretation by Me [place]/QRS: LBBB When compared to previous EKG there are: Changes noted Critical Care Note - Critical Care Note Total time excluding time spent on procedures (mins): 45 Comments: Consultation with specialists, coordinated transfer of care Discharge - Discharge Clinical Impression: VT, acute, non ST segment elevation Condition: Good Disposition: [facility] Referrals: VIC SHEN MD [Primary Care Provider] - Follow up as needed
[2017-10-11 06:46] LABS: ABSOLUTE EOSINOPHILS # (AUTO) 0.3 10^3/uL (0.0-0.6); ABSOLUTE LYMPHOCYTES (AUTO) 1.2 10^3/uL (0.5-4.7); ABSOLUTE MONOCYTES (AUTO) 0.7 10^3/uL (0.1-1.4); ABSOLUTE NEUT (AUTO) 8.2 10^3/uL (1.7-8.2); BASOPHILS % (AUTO) 0.2 % (0-2); EOSINOPHILS % (AUTO) 2.7 % (0-6); HEMATOCRIT 36.4 % (36.0-47.0); HEMOGLOBIN 12.4 g/dL (12.0-15.5); LYMPHOCYTES % (AUTO) 11.8 % (13-45); MEAN CORPUSCULAR HGB CONC 34.2 g/dL (32.0-36.0); MEAN CORPUSCULAR VOLUME 88 fl (80-97); MONOCYTES % (AUTO) 6.9 % (3-13); PLATELET COUNT 348 10^3/uL (150-450); RED BLOOD COUNT 4.14 10^6/uL (3.72-5.28); RED CELL DISTRIBUTION WIDTH 14.1 % (11.5-14.0); SEGMENTED NEUTROPHILS % (AUTO) 78.4 % (42-78); TOTAL CELLS COUNTED % (AUTO) 100 %; WHITE BLOOD COUNT 10.5 10^3/uL (4.0-10.5)
[2017-10-11 06:53] LABS: ALANINE AMINOTRANSFERASE 18 U/L (9-52); ALBUMIN 4.5 g/dL (3.5-5.0); ALKALINE PHOSPHATASE 77 U/L (38-126); ANION GAP 13 (5-19); ASPARTATE AMINO TRANSFERASE 23 U/L (14-36); BILIRUBIN,DIRECT 0.5 mg/dL (0.0-0.4); BILIRUBIN,TOTAL 0.7 mg/dL (0.2-1.3); BLOOD UREA NITROGEN 21 mg/dL (7-20); CALCIUM 10.2 mg/dL (8.4-10.2); CARBON DIOXIDE 27 mmol/L (22-30); CHLORIDE 103 mmol/L (98-107); CREATINE KINASE 34 U/L (30-135); GLUCOSE 142 mg/dL (75-110); POTASSIUM 4.9 mmol/L (3.6-5.0); SODIUM 142.5 mmol/L (137-145); TOTAL PROTEIN 8.2 g/dL (6.3-8.2)
[2017-10-11 07:05] LABS: CREATINE KINASE MB 1.25 ng/mL (<4.55)
[2017-10-11 07:13] LABS: TROPONIN I 1.1 ng/mL
[2017-10-11] MEDS ORDERED: FUROSEMIDE INJ/PF 40 MG/4 ML SDV IV ONE (07:28)
[2017-10-11] MEDS ORDERED: HEPARIN SODIUM,PORCINE/D5W 25,000 UNIT/250 ML RTUINJ IV PRN (07:34)
[2017-10-11] MEDS ORDERED: HEPARIN SOD (PORCINE) 1,000 UNIT/ML 10 ML VIAL IV ONE (07:34)
[2017-10-11 07:49] LABS: INTERNATIONAL RATION (INR) 1.05; PROTHROMBIN TIME 14.2 SEC (11.4-15.4)
[2017-10-11 07:50] LABS: PARTIAL THROMBOPLASTIN TIME 49.8 SEC (23.5-35.8)
[2017-10-11] MEDS ORDERED: IPRATROPIUM/ALBUTEROL 0.5-2.5 MG/3 ML AMPUL NEB ONE (08:12)
--- NOTE | 2017-10-11 08:29 | RADIOLOGY REPORT (SQ) ---
EXAM DESCRIPTION: CHEST SINGLE VIEW COMPLETED DATE/TIME: 10/11/2017 7:19 am REASON FOR STUDY: sob COMPARISON: 09/28/2017 EXAM PARAMETERS: NUMBER OF VIEWS: One view. TECHNIQUE: Single frontal radiographic view of the chest acquired. RADIATION DOSE: NA LIMITATIONS: None. FINDINGS: LUNGS AND PLEURA: No new opacities, masses or pneumothorax. No pleural effusion. MEDIASTINUM AND HILAR STRUCTURES: No masses. Contour normal. HEART AND VASCULAR STRUCTURES: Heart stable in size. Normal vasculature. BONES: No acute findings. HARDWARE: None in the chest. OTHER: No other significant finding. IMPRESSION: NO ACUTE RADIOGRAPHIC FINDING IN THE CHEST. NO SIGNIFICANT CHANGE FROM PRIOR STUDY. TECHNICAL DOCUMENTATION: JOB ID: [id number]- All Rights Reserved Reading location - IP/workstation name: [email or web address]
[2017-10-11] MEDS ORDERED: ALPRAZOLAM 0.5 MG TABLET PO ONE (08:37)
--- NOTE | 2017-10-11 10:31 | PDOC CONSULTATION ---
<PETROS FORRESTER - Last Filed: 10/11/17 11:57> History of Present Illness Admission Date/PCP: VIC OCAMPO MD History of Present Illness: ARISTEO SIDDIQUI is a 82 year old female Medication/Allergy Home Medications: Alprazolam [Xanax 0.25 mg Tablet] 0.25 mg PO QHS 09/25/17 Clopidogrel Bisulfate [Plavix 75 mg Tablet] 75 mg PO DAILY 09/25/17 Gabapentin [Neurontin 100 mg Capsule] 100 mg PO Q12 09/25/17 Glimepiride [Amaryl 1 mg Tablet] 1 mg PO BID 09/25/17 Hydralazine HCl 100 mg PO Q8 09/25/17 Levothyroxine Sodium [Synthroid] 125 mcg PO DAILY 09/25/17 Metformin HCl [Glucophage] 1,000 mg PO BIDACBS 09/25/17 Ranitidine HCl [Zantac 150 mg Tablet] 150 mg PO BID 09/25/17 Sitagliptin Phosphate [Januvia 50 mg Tablet] 100 mg PO DAILY 09/25/17 Hydralazine HCl [Apresoline 50 mg Tablet] 50 mg PO Q8 #90 tablet 10/02/17 Metoprolol Succinate [Toprol Xl 50 mg Tab.sr] 50 mg PO Q12 #60 tab.sr.24h Omeprazole 40 mg PO DAILY #30 capsule.dr 10/02/17 Ranolazine [Ranexa 500 mg Tab.sr] 1,000 mg PO Q12 #60 tab.sr.12h 10/02/17 Simethicone [Mylicon 80 mg Chewable Tablet] 80 mg PO QIDP PRN #120 tab.chew Tramadol HCl [Ultram 50 mg Tablet] 50 mg PO Q12 PRN #30 10/02/17 Allergies/Adverse Reactions: iodine [Iodine] Allergy (Severe, Verified 09/25/17 20:46) Difficulty breathing morphine [Morphine] Allergy (Severe, Verified 09/25/17 20:46) Generalized Itching oxycodone HCl [From Percocet] Allergy (Severe, Verified 09/25/17 20:46) Hallucinations prednisone [Prednisone] Allergy (Severe, Verified 09/25/17 20:46) Hallucinations Sulfa (Sulfonamide Antibiotics) Allergy (Severe, Verified 09/25/17 20:46) itch/hives codeine [Codeine] Allergy (Unknown, Verified 09/25/17 20:46) ? reaction Vuxtcen-Ack-Vjz Reductase Inhibitor Adverse Reaction (Verified 09/26/17 04:43) seafood Allergy (Severe, Uncoded 09/25/17 20:46) Difficulty breathing Physical Exam Vital Signs: Temp Pulse Resp BP Pulse Ox 97.9 F 16 139/75 H 95 10/11/17 06:16 10/11/17 11:31 10/11/17 11:31 10/11/17 11:31 Intake & Output 10/10/17 10/11/17 10/12/17 06:59 06:59 06:59 Weight 94.6 kg Results Laboratory Results: 10/11/17 05:40 10/11/17 05:40 10/11/17 10/11/17 05:40 05:40 WBC 10.5 RBC 4.14 Hgb 12.4 Hct 36.4 MCV 88 MCH 30.0 MCHC 34.2 RDW 14.1 H Plt Count 348 Seg Neutrophils % 78.4 H Lymphocytes % 11.8 L Monocytes % 6.9 Eosinophils % 2.7 Basophils % 0.2 Absolute Neutrophils 8.2 Absolute Lymphocytes 1.2 Absolute Monocytes 0.7 Absolute Eosinophils 0.3 Absolute Basophils 0.0 Sodium 142.5 Potassium 4.9 Chloride 103 Carbon Dioxide 27 Anion Gap 13 BUN 21 H Creatinine 1.11 Est GFR ( Amer) 57 L Est GFR (Non-Af Amer) 47 L Glucose 142 H Calcium 10.2 Total Bilirubin 0.7 AST 23 ALT 18 Alkaline Phosphatase 77 Total Protein 8.2 Albumin 4.5 10/11/17 10/11/17 10/11/17 05:40 05:40 10:40 Creatine Kinase 34 CK-MB (CK-2) 1.25 Troponin I 1.100 1.050 NT-Pro-B Natriuret Pep 63043 H Impressions: Chest X-Ray 10/11/17 06:36 IMPRESSION: NO ACUTE RADIOGRAPHIC FINDING IN THE CHEST. NO SIGNIFICANT CHANGE FROM PRIOR STUDY. <LANNY JOHNSON - Last Filed: 10/12/17 12:27> Consultation Consult Date: 10/11/17 Attending physician:: PETROS FORRESTER Consult reason:: CHF, abnormal EKG History of Present Illness Admission Date/PCP: VIC OCAMPO MD Patient complains of: Shortness of breath History of Present Illness: 82-year-old female to the emergency department chief complaint of shortness of breath. Patient was recently hospitalized. Had a non-ST segment elevation [place]. Elevated troponin. Positive stress test. Subsequently was discharged. Over the last 3 days has had increasing shortness of breath. States that it was relieved initially with Xanax but now getting worse. Intermittent cough. Denies any chest pain, nausea or shoulder pain. This history obtained by the ER physician was reviewed. Patient well-known to me from previous admission. She has presented with neck and jaw pain during her last admission. At that time she has positive troponin I in the non-STEMI range. However she opted for medical management. She describes having had heart catheterization performed at [facility] many years ago. This history obtained by the ER physician was reviewed and confirmed. Patient is well known to me from previous admission. She had initially presented to my office after being sent there by Dr. Ocampo and subsequently sent to emergency room and admitted to the hospital. Patient had presented at that time with severe neck and jaw pain few days prior to initial presentation. However subsequently her cardiac enzymes came back back in the suggestive range. Initially she had opted for medical management. Subsequently during hospitalization she developed other vague symptoms and renal dysfunction. Patient also was stabilized on medical management. It was felt at that time that we should continue medical management unless patient has other symptoms, worsening CHF, cardiac dysrhythmia or recurrent angina or angina equivalent symptoms. Patient came back because of shortness of breath. Patient renal function was noted to be improved. It is now felt that because of recurrent admission, patient will benefit from heart catheterization. This was related to the ER physician who subsequently called tertiary care and arrange for the transfer. I did see the patient in the emergency room and now she is agreeable for pursuing heart catheterization. Patient does have allergy to iodinated dye. Past Medical History Cardiac Medical History: Reports: Coronary Artery Disease - minor vessels closed , Hyperlipidema, Hypertension - meds x yrs Pulmonary Medical History: Reports: Bronchitis, Chronic Obstructive Pulmonary Disease (COPD), Pneumonia - as child/cellulitis from pneumonia vaccine Neurological Medical History: Reports: Seizures Endocrine Medical History: Reports: Diabetes Mellitus Type 2 Musculoskeltal Medical History: Reports: Arthritis Psychiatric Medical History: Reports: Depression - anxiety Hematology: Reports: Anemia Past Surgical History Past Surgical History: Reports: Cholecystectomy, Hysterectomy Social History Information Source: Patient Lives with: Alone Smoking Status: Former Smoker Frequency of Alcohol Use: None Hx Recreational Drug Use: No Drugs: None Hx Prescription Drug Abuse: No - Advance Directive Resuscitation Status: Full Code Surrogate healthcare decision maker:: Patient's daughter is the surrogate decision-maker Family History Family History: Hypertension Parental Family History Reviewed: Yes Children Family History Reviewed: Yes Sibling(s) Family History Reviewed.: Yes Review of Systems Review of Systems: Please see history of present illness and past medical history as wall. Constitutional: No fever or chills reported. Head : No recent chronic headaches, recent head injury. Eyes: No recent eye pain, diplopia, redness, discharge, acute visual changes. Ears: No recent chronic ear pain, acute hearing loss, ear discharge. Oral cavity: No recent ulcerations, bleeding, oral cavity discomfort. Neck: No recent acute neck pain reported. Hematologic: No recent easy bruising or bleeding. Lymphatic: No recent lymph node enlargement reported. Cardiovascular system review: See history of present illness. Respiratory system review: No hemoptysis or blood clots in the lungs reported. Mild Shortness of breath on exertion Gastrointestinal system review: Negative for any recent acute hematemesis, melena. Genitourinary system review: No recent acute or chronic hematuria, flank pain, UTI etc. reported. Skin system review: Negative for any recent abnormal bruising, no rash, no pruritus reported. Neurologic: No prior history of strokes, mini strokes, seizure disorder. Psychologic: No history of major psychosis or major depression reported. History of anxiety and minor depression. Musculoskeletal: Minor aches and pains reported. No acute joint swelling reported. Endocrine: No recent polyuria, polydipsia, recent heat or cold intolerance. Physical Exam Vital Signs: Temp Pulse Resp BP Pulse Ox 97.9 F 19 150/55 H 94 10/11/17 06:16 10/11/17 09:00 10/11/17 08:32 10/11/17 09:00 Intake & Output 10/10/17 10/11/17 10/12/17 06:59 06:59 06:59 Weight 94.6 kg Exam: GENERAL: well-nourished and in no acute distress. Alert and oriented x3 HEAD: Atraumatic, normocephalic. EYES: Pupils equal round and reactive to light, extraocular movements intact, sclera anicteric, conjunctiva are normal. ENT: TMs normal, nares patent, oropharynx clear without exudates. Moist mucous membranes. No oral ulcerations or bleeding gums noted NECK: supple without lymphadenopathy. Trachea is central. No cervical or axillary lymphadenopathy noted. Carotids are 2+, JVD 8-10 cm LUNGS: Respiration seems nonlabored, no significant accessory muscle action noted. Bibasilar fine crackles are noted. No wheezes rales or rhonchi noted. No significant dullness noted on percussion. CHEST: Palpation of the chest wall shows no significant chest wall tenderness. HEART: [place] [employer], No PSH, 1/6 SVEN aortic area, 1/6 sinclair systolic murmur mitral area, no rubs, positive S4 gallops. ABDOMEN: Soft, no significant tenderness appreciated, normoactive bowel sounds. No guarding, no rebound. No rigidity noted . No masses appreciated. EXTREMITIES: Pedal pulses are 1-2+, no calf tenderness noted. No clubbing or cyanosis. 1+ pedal edema noted NEUROLOGICAL: Focused neurological exam showed no significant neurologic deficit. Normal speech, no focal weakness appreciated. PSYCH: Normal mood, normal affect. Judgment and insight within normal limits. SKIN: No significant ecchymosis, skin is noted to be warm. MUSCULOSKELETAL EXAM: No significant acute joint swelling noted. Results Laboratory Results: 10/11/17 05:40 10/11/17 05:40 10/11/17 10/11/17 05:40 05:40 WBC 10.5 RBC 4.14 Hgb 12.4 Hct 36.4 MCV 88 MCH 30.0 MCHC 34.2 RDW 14.1 H Plt Count 348 Seg Neutrophils % 78.4 H Lymphocytes % 11.8 L Monocytes % 6.9 Eosinophils % 2.7 Basophils % 0.2 Absolute Neutrophils 8.2 Absolute Lymphocytes 1.2 Absolute Monocytes 0.7 Absolute Eosinophils 0.3 Absolute Basophils 0.0 Sodium 142.5 Potassium 4.9 Chloride 103 Carbon Dioxide 27 Anion Gap 13 BUN 21 H Creatinine 1.11 Est GFR ( Amer) 57 L Est GFR (Non-Af Amer) 47 L Glucose 142 H Calcium 10.2 Total Bilirubin 0.7 AST 23 ALT 18 Alkaline Phosphatase 77 Total Protein 8.2 Albumin 4.5 10/11/17 10/11/17 05:40 05:40 Creatine Kinase 34 CK-MB (CK-2) 1.25 Troponin I 1.100 NT-Pro-B Natriuret Pep [id number] H EKG Comments: Sinus rhythm, left bundle branch block pattern. Impressions: Chest X-Ray 10/11/17 06:36 IMPRESSION: NO ACUTE RADIOGRAPHIC FINDING IN THE CHEST. NO SIGNIFICANT CHANGE FROM PRIOR STUDY. Assessment & Plan - Diagnosis (1) WA, acute, non ST segment elevation Is this a current diagnosis for this admission?: Yes (2) CAD (coronary artery disease) Qualifiers: Coronary Disease-Associated Artery/Lesion type: [place] artery [place] vs. transplanted heart: [place] heart Associated angina: angina presence unspecified Qualified Code(s): I25.10 - Atherosclerotic heart disease of [place] coronary artery without angina pectoris (3) Hyperlipemia Qualifiers: Hyperlipidemia type: other hyperlipidemia Qualified Code(s): E78.4 - Other hyperlipidemia Is this a current diagnosis for this admission?: Yes (4) Hypertension Qualifiers: Hypertension type: essential hypertension Qualified Code(s): I10 - Essential (primary) hypertension Is this a current diagnosis for this admission?: Yes (5) Pulmonary hypertension Is this a current diagnosis for this admission?: Yes (6) Type 2 diabetes mellitus Qualifiers: Diabetes mellitus chcf insulin use: unspecified chcf insulin use status Diabetes mellitus complication status: with unspecified complications Qualified Code(s): E11.8 - Type 2 diabetes mellitus with unspecified complications Is this a current diagnosis for this admission?: Yes - Notes Notes: Patient known to me from previous admission. She had presented with severe neck and jaw pain at that time few days prior to admission. However subsequently had rising troponin I. Patient gives history of allergy to iodine and contrast agent. She was also noted to have some worsening renal function. At that time a decision was made to treat her medically. Stress test did show a area of severe fixed defect in the LV apex with minimal surrounding ischemia with SDS of 1. It was felt that we will treat her with medical management and if this fails then will consider heart catheterization. Today she presented with CHF. She also had a bump in troponin I. In addition she has now progressed to left bundle branch block pattern. She is not having any active chest pain but patient is diabetic. It is felt that best option would be transfer to tertiary care for heart catheterization. This was related to the ER physician, who has kindly arranged for such a [facility]. I feel that thrombolytics not indicated as her symptoms progressed over the last 2 days.. This was discussed with the patient in the ER, who is agreeable for this approach. Patient has been started on heparin drip. Continue antiplatelet therapy, beta-zulma therapy, diuretics, statin therapy. Patient can follow-up with me after discharge. - Time Time Spent: 30 to 50 Minutes - CODE STATUS was discussed, patient remains full code. Surrogate decision-maker unchanged. Multiple medical problems were addressed. More than 50% of the time spent coordinating care, discussing management plans with involved caregivers. Management plans discussed with involved personnels. Medical decision making was of moderate to high complexity , patient's has multiple comorbidities. Medications reviewed and adjusted accordingly: Yes
[2017-10-11] MEDS ORDERED: HEPARIN SOD (PORCINE) 1,000 UNIT/ML 10 ML VIAL IV PRN (10:35)
[2017-10-11 12:09] VITALS: BP 140/54
--- NOTE | 2017-10-11 20:16 | EKG REPORT ---
SEVERITY:- ABNORMAL ECG - SINUS RHYTHM FIRST DEGREE AV BLOCK LEFT BUNDLE BRANCH BLOCK : Confirmed by: Geri Houston 11-Oct-2017 20:16:04
--- NOTE | 2017-10-11 20:16 | EKG REPORT ---
SEVERITY:- ABNORMAL ECG - SINUS RHYTHM FIRST DEGREE AV BLOCK LEFT BUNDLE BRANCH BLOCK : Confirmed by: Geri Houston 11-Oct-2017 20:15:52
== END 2017-10-11 12:28 | disposition short-term general hospital (02) ==
LOC: ER 06:04
DX: I21.4 Non-ST elevation (NSTEMI) myocardial infarction (principal); I44.7 Left bundle-branch block, unspecified; R06.02 Shortness of breath; R05 Cough; Z79.899 Other long term (current) drug therapy; Z87.891 Personal history of nicotine dependence; I25.10 Atherosclerotic heart disease of native coronary artery without angina pectoris; I10 Essential (primary) hypertension; J44.9 Chronic obstructive pulmonary disease, unspecified; E11.9 Type 2 diabetes mellitus without complications
CPT/HCPCS: 93005; 96376; 99291; 96375; 96365; 96366; 36415; 82553; 82550; 85025; 85610; 85730; 80053; 84484; 83880; 71045; 93010; A9270; J1644 ×2; J1940